=== PATIENT | female | born 1965 | race African-American/Black ===

== ENCOUNTER 2016-10-02 14:04 | Inpatient (IN) | payer MEDICAID ==
[~2016-10-02] VITALS: Ht 165.1 cm; Wt 88.9 kg
[~2016-10-02 14:04] MED LIST: ASPI81CH43 PO; Atorvastatin Calcium PO; Gabapentin PO; KEP500T PO; LEVO25TA6 PO; [UNRECOGNIZED DRUG - OTHER] PO
[2016-10-02 15:34] LABS: Basophils # (auto) 0 uL; Basophils % (auto) 0.4 % (0.0-2.0); Eosinophils # (auto) 0.1 uL; Eosinophils % (auto) 0.9 % (0.0-7.0); Hematocrit 35.7 % (36.0-46.0); Hemoglobin 11.6 g/dL (12.2-16.2); Lymphocytes % (auto) 30.6 % (10.0-50.0); Mean Corpuscular Hemoglobin 29.6 pg (28.0-32.0); Mean Corpuscular Hgb Conc. 32.4 g/dL (32.0-36.0); Mean Corpuscular Volume 91.3 fL (80.0-100.0); Mean Platelet Volume 7.8 fL (7.4-10.4); Monocytes # (auto) 0.4 uL; Monocytes % (auto) 5.6 % (0.0-12.0); Neutrophils # (auto) 4.1 uL; Neutrophils % (auto) 62.5 % (37.0-80.0); Platelet Count (auto) 290 10^3/uL (140-450); Red Cell Distribution Width 14.4 % (11.6-16.0); White Blood Cell 6.6 10^3/uL (4.4-10.8)
[2016-10-02 16:05] LABS: Albumin 3.9 g/dL (3.4-5.0); BUN/Creatinine Ratio 32.8; Bilirubin, Total 0.1 mg/dL (0.2-1.0); Potassium 3.6 mmol/L (3.5-5.1); Total Protein 7.1 g/dL (6.4-8.2)
[2016-10-02] MEDS ORDERED: LEVETIRACETAM INJ 1,000 MG in SODIUM CHL 0.9% 100 ML IV ONE (20:45)
[2016-10-02] MEDS ORDERED: ASPirin 81 mg TAB PO ONE (22:00)
[2016-10-02] MEDS: ATORVASTATIN 20 MG TAB PO SCH (22:00)
[2016-10-02] MEDS: GABAPENTIN 300 MG CAP PO SCH (22:00)
[2016-10-02] MEDS: SODIUM CHLORIDE 0.9% 1,000 ML IV SCH (22:08)
[2016-10-02] MEDS: LEVETIRACETAM 500 MG TAB PO SCH (22:10)
[2016-10-02] MEDS ORDERED: ENOXAPARIN SOD 30 MG/0.3 ML SYRINGE SC SCH (22:13)
[2016-10-02] MEDS ORDERED: LACTULOSE 20Gm/30ML SOLN PO PRN (22:15)
[2016-10-02] MEDS ORDERED: NITROGLYCERIN 0.4 MG SL TAB SL PRN (22:15)
[2016-10-02] MEDS ORDERED: LORazepam 2MG/ML-1ML VIAL IV PRN (22:15)
[2016-10-02] MEDS ORDERED: HYDROcodone-ACET 5/325MG TAB PO PRN (22:15)
[2016-10-02] MEDS ORDERED: IBUPROFEN 800 MG TAB PO PRN ×2 (22:15)
[2016-10-02] MEDS ORDERED: MORPHINE SULF INJ 2 MG/ML SYRINGE 1ML IV PRN (22:15)
[2016-10-02] MEDS ORDERED: LORazepam 0.5 MG TAB PO PRN (22:15)
[2016-10-03] VITALS (7 sets, daily range): BP systolic 91–113; BP diastolic 56–74
[2016-10-03] MEDS: LORazepam 2MG/ML-1ML VIAL IV PRN ×4 (01:56→14:27)
[2016-10-03] MEDS ORDERED: MORPHINE SULF INJ 2 MG/ML SYRINGE 1ML IV PRN (02:00)
[2016-10-03] MEDS ORDERED: LORazepam 2MG/ML-1ML VIAL IM ONE (02:30)
[2016-10-03] MEDS: GABAPENTIN 300 MG CAP PO SCH ×3 (06:54→21:38)
[2016-10-03] MEDS: LEVOTHYROXINE SODIUM 25 MCG TAB PO SCH (06:54)
[2016-10-03] MEDS: HYDROcodone-ACET 5/325MG TAB PO PRN ×2 (06:59→15:08)
[2016-10-03 07:27] LABS: Albumin 3.8 g/dL (3.4-5.0); BUN/Creatinine Ratio 21.3; Bilirubin, Total 0.3 mg/dL (0.2-1.0); Calcium 8.8 mg/dL (8.5-10.1); Potassium 3.6 mmol/L (3.5-5.1); Total Protein 7.1 g/dL (6.4-8.2)
[2016-10-03 07:34] LABS: Basophils # (auto) 0 uL; Basophils % (auto) 0.4 % (0.0-2.0); Eosinophils # (auto) 0.1 uL; Eosinophils % (auto) 1.1 % (0.0-7.0); Hematocrit 37.9 % (36.0-46.0); Hemoglobin 11.8 g/dL (12.2-16.2); Lymphocytes % (auto) 19.9 % (10.0-50.0); Mean Corpuscular Hemoglobin 28.7 pg (28.0-32.0); Mean Corpuscular Hgb Conc. 31.2 g/dL (32.0-36.0); Mean Corpuscular Volume 92.2 fL (80.0-100.0); Mean Platelet Volume 7.9 fL (7.4-10.4); Monocytes # (auto) 0.3 uL; Monocytes % (auto) 5.6 % (0.0-12.0); Neutrophils # (auto) 3.8 uL; Platelet Count (auto) 239 10^3/uL (140-450); Red Cell Distribution Width 14.4 % (11.6-16.0); White Blood Cell 5.2 10^3/uL (4.4-10.8)
[2016-10-03] MEDS: LEVETIRACETAM 500 MG TAB PO SCH ×2 (09:58→21:38)
[2016-10-03] MEDS: ENOXAPARIN SOD 40 MG/0.4 ML SYRINGE SC SCH (09:58)
[2016-10-03] MEDS: ASPirin 81 mg TAB PO SCH (09:58)
[2016-10-03] MEDS: SODIUM CHLORIDE 0.9% 1,000 ML IV SCH (10:06)
[2016-10-03] MEDS: LORazepam 0.5 MG TAB PO PRN (14:17)
[2016-10-03] MEDS ORDERED: HYDROcodone-ACET 5/325MG TAB PO PRN (15:30)
[2016-10-03] MEDS: MORPHINE SULF INJ 2 MG/ML SYRINGE 1ML IV PRN ×2 (16:11→20:10)
[2016-10-03] MEDS: ATORVASTATIN 20 MG TAB PO SCH (21:37)
[2016-10-04] MEDS: LORazepam 0.5 MG TAB PO PRN ×2 (01:31→23:02)
[2016-10-04] MEDS: LORazepam 2MG/ML-1ML VIAL IV PRN ×2 (02:12→07:05)
[2016-10-04 05:05] VITALS: BP 102/65
[2016-10-04] MEDS: GABAPENTIN 300 MG CAP PO SCH ×3 (05:26→22:07)
[2016-10-04] MEDS: MORPHINE SULF INJ 2 MG/ML SYRINGE 1ML IV PRN ×4 (05:27→22:05)
[2016-10-04] MEDS: LEVOTHYROXINE SODIUM 25 MCG TAB PO SCH (06:29)
[2016-10-04 07:21] VITALS: BP 102/69
[2016-10-04] MEDS: ASPirin 81 mg TAB PO SCH (10:11)
[2016-10-04] MEDS: LEVETIRACETAM 500 MG TAB PO SCH ×2 (10:12→22:07)
[2016-10-04] MEDS: ENOXAPARIN SOD 40 MG/0.4 ML SYRINGE SC SCH (10:12)
[2016-10-04 11:22] LABS: Urine Bilirubin Negative (Negative); Urine Blood Negative /uL (Negative); Urine Color Yellow (Yellow); Urine Glucose Normal (Normal); Urine Ketone Negative (Negative); Urine Mucus FEW (None Seen); Urine Nitrite Negative (Negative); Urine RBC <1 /hpf (0 - 4); Urine Squamous Epithelial Cell FEW /hpf (<5); Urine Urobilinogen Normal (Negative)
[2016-10-04] MEDS: BOOST 8 ounces PO SCH ×2 (12:09→18:28)
[2016-10-04 13:00] VITALS: BP 94/61
[2016-10-04 17:17] VITALS: BP 93/59
[2016-10-04 20:00] VITALS: BP 96/62
[2016-10-04 21:47] VITALS: BP 96/62
[2016-10-04] MEDS: ATORVASTATIN 20 MG TAB PO SCH (22:07)
[2016-10-05] MEDS: MORPHINE SULF INJ 2 MG/ML SYRINGE 1ML IV PRN (04:32)
[2016-10-05 04:41] VITALS: BP 98/66
[2016-10-05] MEDS: GABAPENTIN 300 MG CAP PO SCH (05:33)
[2016-10-05 06:25] VITALS: BP 98/66
[2016-10-05] MEDS: LEVOTHYROXINE SODIUM 25 MCG TAB PO SCH (06:39)
[2016-10-05 08:06] VITALS: BP 90/64
[2016-10-05 08:41] VITALS: BP 90/64
== END 2016-10-05 11:05 | disposition home or self-care (01) | DRG 53 ==
LOC: EDBD 14:04 → ER 14:11 → TELE 14:12 → TELE-EAST 14:13 → ER 17:14 → TELE-EAST 10-03 00:04 → EAST 10-04 14:10
PROVIDERS: ADMIT Family Medicine; ATTEND Hospitalist
DX: G40.909 Epilepsy, unspecified, not intractable, without status epilepticus (principal); I69.351 Hemiplegia and hemiparesis following cerebral infarction affecting right dominant side; I10 Essential (primary) hypertension; E78.5 Hyperlipidemia, unspecified; E03.9 Hypothyroidism, unspecified; F41.9 Anxiety disorder, unspecified; E78.00 Pure hypercholesterolemia, unspecified; G89.29 Other chronic pain; Z90.710 Acquired absence of both cervix and uterus; R07.89 Other chest pain; M54.9 Dorsalgia, unspecified
CPT/HCPCS: 36415; 70450; 80053; 80061; 81001; 82542; 85025; 87086; 87493; 96365; G0434

== ENCOUNTER 2017-01-15 11:32 | Emergency (ER) | payer MEDICAID ==
[~2017-01-15] VITALS: Ht 170.2 cm; Wt 75.7 kg
[2017-01-15 12:14] LABS: Basophils # (auto) 0 uL; Basophils % (auto) 0.1 % (0.0-2.0); Eosinophils # (auto) 0 uL; Eosinophils % (auto) 0.4 % (0.0-7.0); Hemoglobin 12.9 g/dL (12.2-16.2); Lymphocytes # (auto) 1.7 uL; Lymphocytes % (auto) 21.5 % (10.0-50.0); Mean Corpuscular Volume 87.8 fL (80.0-100.0); Mean Platelet Volume 8.4 fL (7.4-10.4); Monocytes # (auto) 0.2 uL; Monocytes % (auto) 2.4 % (0.0-12.0); Neutrophils # (auto) 5.9 uL; Neutrophils % (auto) 75.6 % (37.0-80.0); Platelet Count (auto) 296 10^3/uL (140-450); Red Cell Distribution Width 15.1 % (11.6-16.0); White Blood Cell 7.7 10^3/uL (4.4-10.8)
[2017-01-15 12:33] LABS: Albumin 4.3 g/dL (3.4-5.0); BUN/Creatinine Ratio 14.3; Bilirubin, Total 0.4 mg/dL (0.2-1.0); Calcium 9.3 mg/dL (8.5-10.1); Potassium 3.7 mmol/L (3.5-5.1); Total Protein 7.8 g/dL (6.4-8.2)
[2017-01-15] MEDS ORDERED: LORazepam 0.5 MG TAB PO ONE (13:45)
[2017-01-15 13:51] VITALS: BP 105/82
== END 2017-01-15 14:32 | disposition home or self-care (01) ==
LOC: ER 11:36
DX: G40.909 Epilepsy, unspecified, not intractable, without status epilepticus (principal); N39.0 Urinary tract infection, site not specified; E78.5 Hyperlipidemia, unspecified; E07.89 Other specified disorders of thyroid; Z86.73 Personal history of transient ischemic attack (TIA), and cerebral infarction without residual deficits; Z90.710 Acquired absence of both cervix and uterus
CPT/HCPCS: 36415; 80053; 85025; 93005

== ENCOUNTER 2018-04-23 14:19 | Inpatient (IN) | payer MEDICAID ==
[~2018-04-23] VITALS: Ht 182.9 cm; Wt 101.5 kg
[2018-04-23] MEDS ORDERED: SODIUM CHLORIDE 0.9% 1,000 ML IV ONE (14:44)
[2018-04-23] MEDS ORDERED: LORazepam 2MG/ML-1ML VIAL IV ONE (15:01)
[2018-04-23] MEDS ORDERED: LORazepam 2MG/ML-1ML VIAL ONE (15:02)
[2018-04-23 19:31] LABS: Eosinophils # (auto) 0.1 uL; Eosinophils % (auto) 2.6 % (0.0-7.0); Hemoglobin 11.2 g/dL (12.2-16.2); Mean Corpuscular Volume 79.3 fL (80.0-100.0); Monocytes # (auto) 0.4 uL; White Blood Cell 5.4 10^3/uL (4.4-10.8)
[2018-04-23 19:33] LABS: Basophils # (auto) 0.1 uL; Lymphocytes # (auto) 1.9 uL; Lymphocytes % (auto) 35.1 % (10.0-50.0); Mean Corpuscular Hemoglobin 25.4 pg (28.0-32.0); Mean Corpuscular Hgb Conc. 32.1 g/dL (32.0-36.0); Monocytes % (auto) 7.3 % (0.0-12.0); Neutrophils # (auto) 2.9 uL; Nucleated Red Blood Cells % 0.2 %; Platelet Count (auto) 226 10^3/uL (140-450); Red Blood Cells 4.41 10^6/uL (4.0-5.20); Red Cell Distribution Width 19.2 % (11.8-14.3)
[2018-04-23 19:58] LABS: Alanine Aminotransferase 22 U/L (13-56); Albumin 3.5 g/dL (3.4-5.0); Alkaline Phosphatase 130 U/L (45-117); Anion Gap 10 (5-15); Aspartate Aminotransferase 21 U/L (15-37); BUN/Creatinine Ratio 11.8; Bilirubin, Total 0.2 mg/dL (0.2-1.0); Blood Urea Nitrogen 10 mg/dL (7-18); Calcium 8.2 mg/dL (8.5-10.1); Carbon Dioxide 23 mmol/L (21-32); Chloride 103 mmol/L (98-107); GFR African American 90 mL/min; GFR Non-African American 74 mL/min; Glucose 119 mg/dL (74-106); Potassium 3.9 mmol/L (3.5-5.1); Sodium 136 mmol/L (136-145); Total Protein 7.2 g/dL (6.4-8.2)
[2018-04-23 20:00] LABS: Urine Bacteria NONE SEEN /hpf (None Seen); Urine Blood Negative /uL (Negative); Urine Mucus FEW (None Seen); Urine Specific Gravity 1.017 (1.001-1.035); Urine WBC 2 /hpf (0 - 5)
[2018-04-23] MEDS ORDERED: ONDANSETRON HCL 4 MG/2 ML VIAL IV PRN (21:45)
[2018-04-23] MEDS ORDERED: ACETAMINOPHEN 500 MG TAB PO PRN (21:45)
[2018-04-23] MEDS ORDERED: ATORVASTATIN 20 MG TAB PO SCH (22:00)
[2018-04-23] MEDS ORDERED: LEVETIRACETAM 500 MG TAB PO SCH (22:00)
[2018-04-23] MEDS: GABAPENTIN 300 MG CAP PO SCH (23:31)
[2018-04-23] MEDS: HYDROcodone-ACET 5/325MG TAB PO PRN (23:32)
[2018-04-23 23:45] VITALS: BP 109/57
[2018-04-24] MEDS ORDERED: TEMAZEPAM 15 MG CAP PO PRN (01:00)
[2018-04-24] MEDS: LORazepam 2MG/ML-1ML VIAL IV PRN ×2 (03:58→04:05)
[2018-04-24 05:00] VITALS: BP 102/64
[2018-04-24] MEDS ORDERED: LEVOTHYROXINE SODIUM 75 MCG TAB PO SCH (07:00)
[2018-04-24 07:41] LABS: Basophils # (auto) 0 uL; Eosinophils # (auto) 0.1 uL; Lymphocytes # (auto) 1.4 uL; Neutrophils # (auto) 2.6 uL; Red Blood Cells 4.23 10^6/uL (4.0-5.20); White Blood Cell 4.6 10^3/uL (4.4-10.8)
[2018-04-24 07:44] LABS: Eosinophils % (auto) 2.9 % (0.0-7.0); Hematocrit 32.8 % (36.0-46.0); Hemoglobin 10.7 g/dL (12.2-16.2); Lymphocytes % (auto) 30.3 % (10.0-50.0); Mean Corpuscular Hemoglobin 25.2 pg (28.0-32.0); Mean Corpuscular Hgb Conc. 32.5 g/dL (32.0-36.0); Mean Corpuscular Volume 77.6 fL (80.0-100.0); Monocytes # (auto) 0.4 uL; Neutrophils % (auto) 56.8 % (37.0-80.0); Nucleated Red Blood Cells % 0.1 %; Platelet Count (auto) 298 10^3/uL (140-450); Red Cell Distribution Width 19.3 % (11.8-14.3)
[2018-04-24 07:54] LABS: BUN/Creatinine Ratio 11.4; Calcium 8.5 mg/dL (8.5-10.1); Potassium 3.8 mmol/L (3.5-5.1)
[2018-04-24] MEDS ORDERED: cefTRIAXone 1GM/10ml IVPUSH 10 ML IV ONE (09:00)
[2018-04-24 09:01] VITALS: BP 113/69
[2018-04-24] MEDS: ASPirin-EC 81 mg tab PO SCH (09:47)
[2018-04-24] MEDS: LEVOTHYROXINE SODIUM 25 MCG TAB PO SCH (09:47)
[2018-04-24] MEDS: GABAPENTIN 300 MG CAP PO SCH (09:48)
[2018-04-24] MEDS: HYDROcodone-ACET 5/325MG TAB PO PRN ×3 (10:15→22:51)
[2018-04-24 12:16] VITALS: BP 106/70
[2018-04-24 17:29] VITALS: BP 107/65
[2018-04-24 21:30] VITALS: BP 106/68
[2018-04-24] MEDS ORDERED: GABAPENTIN 300 MG CAP PO SCH (22:00)
[2018-04-24] MEDS ORDERED: GABAPENTIN 400 MG CAP PO SCH (22:00)
[2018-04-24] MEDS: ATORVASTATIN 20 MG TAB PO SCH (22:52)
[2018-04-24] MEDS: GABAPENTIN 400 MG CAP PO SCH (22:52)
[2018-04-25] VITALS (7 sets, daily range): BP systolic 94–123; BP diastolic 63–72
[2018-04-25] MEDS: GABAPENTIN 400 MG CAP PO SCH ×3 (06:02→21:24)
[2018-04-25 07:39] LABS: Anion Gap 11 (5-15); BUN/Creatinine Ratio 12.8; Blood Urea Nitrogen 10 mg/dL (7-18); Calcium 8.9 mg/dL (8.5-10.1); Carbon Dioxide 24 mmol/L (21-32); Chloride 107 mmol/L (98-107); GFR African American 99 mL/min; GFR Non-African American 82 mL/min; Glucose 95 mg/dL (74-106); Sodium 142 mmol/L (136-145)
[2018-04-25 07:47] LABS: Mean Corpuscular Hgb Conc. 32.1 g/dL (32.0-36.0)
[2018-04-25 07:50] LABS: Hematocrit 39.1 % (36.0-46.0); Hemoglobin 12.5 g/dL (12.2-16.2); Platelet Count (auto) 329 10^3/uL (140-450); Red Blood Cells 5.01 10^6/uL (4.0-5.20); Red Cell Distribution Width 19.2 % (11.8-14.3); White Blood Cell 5.9 10^3/uL (4.4-10.8)
[2018-04-25 08:00] LABS: Band Neutrophils % (manual) 0; Basophils % (manual) 0 (0.0-2.0); Blast Cells 0; Metamyelocytes % 0; Myelocytes % 0; Promyelocytes % 0; Reactive Lymphocytes 0
[2018-04-25 08:55] LABS: Eosinophils % (manual) 2 (0-7); Lymphocytes % (manual) 32 (10.0-50.0); Monocytes % (manual) 7 (0-12)
[2018-04-25] MEDS: HYDROcodone-ACET 5/325MG TAB PO PRN ×3 (09:21→21:26)
[2018-04-25] MEDS: ASPirin-EC 81 mg tab PO SCH (09:22)
[2018-04-25] MEDS: APTIOM 800MG TAB PO SCH (09:42)
[2018-04-25] MEDS: LEVOTHYROXINE SODIUM 25 MCG TAB PO SCH (10:57)
[2018-04-25] MEDS: LORazepam 2MG/ML-1ML VIAL IV PRN (11:12)
[2018-04-25] MEDS ORDERED: GABA800T97 PO (13:52)
[2018-04-25] MEDS ORDERED: MIRT15TA3 PO (13:52)
[2018-04-25] MEDS ORDERED: ESLI1TAB4 PO (13:52)
[2018-04-25] MEDS ORDERED: ASPI325T4 PO (13:52)
[2018-04-25] MEDS ORDERED: ATOR40TA52 PO (13:52)
[2018-04-25] MEDS: ATORVASTATIN 20 MG TAB PO SCH (21:24)
[2018-04-26 05:00] VITALS: BP 98/58
[2018-04-26] MEDS: GABAPENTIN 400 MG CAP PO SCH (05:27)
[2018-04-26] MEDS: HYDROcodone-ACET 5/325MG TAB PO PRN ×2 (05:28→09:24)
[2018-04-26 07:31] LABS: Monocytes # (auto) 0.5 uL; Platelet Count (auto) 336 10^3/uL (140-450)
[2018-04-26 07:40] LABS: Basophils # (auto) 0 uL; Basophils % (auto) 0.9 % (0.0-2.0); Eosinophils # (auto) 0.1 uL; Eosinophils % (auto) 2.1 % (0.0-7.0); Hematocrit 38.2 % (36.0-46.0); Hemoglobin 12.3 g/dL (12.2-16.2); Lymphocytes # (auto) 1.4 uL; Lymphocytes % (auto) 27.2 % (10.0-50.0); Mean Corpuscular Hemoglobin 25.2 pg (28.0-32.0); Mean Corpuscular Hgb Conc. 32.2 g/dL (32.0-36.0); Mean Corpuscular Volume 78.4 fL (80.0-100.0); Monocytes % (auto) 10.3 % (0.0-12.0); Neutrophils % (auto) 59.5 % (37.0-80.0); Nucleated Red Blood Cells % 0.2 %; Red Blood Cells 4.88 10^6/uL (4.0-5.20); Red Cell Distribution Width 19.2 % (11.8-14.3); White Blood Cell 5.1 10^3/uL (4.4-10.8)
[2018-04-26 07:59] LABS: Potassium 3.9 mmol/L (3.5-5.1)
[2018-04-26 08:00] VITALS: BP 107/64
[2018-04-26] MEDS: LEVOTHYROXINE SODIUM 25 MCG TAB PO SCH (09:23)
[2018-04-26] MEDS: APTIOM 800MG TAB PO SCH (09:25)
[2018-04-26] MEDS: ASPirin-EC 81 mg tab PO SCH (09:25)
[2018-04-26 11:15] VITALS: BP 107/64
== END 2018-04-26 12:50 | disposition home or self-care (01) | DRG 53 ==
LOC: EDBD 14:19 → ER 14:19 → OVERFLOW 14:20 → CENTRAL 22:14
PROVIDERS: ADMIT Nurse Practitioner Family; ATTEND Internal Medicine
DX: G40.401 Other generalized epilepsy and epileptic syndromes, not intractable, with status epilepticus (principal); F06.8 Other specified mental disorders due to known physiological condition; I10 Essential (primary) hypertension; E03.9 Hypothyroidism, unspecified; F41.9 Anxiety disorder, unspecified; F17.200 Nicotine dependence, unspecified, uncomplicated; Z79.82 Long term (current) use of aspirin; Z79.899 Other long term (current) drug therapy; Z82.49 Family history of ischemic heart disease and other diseases of the circulatory system; Z83.3 Family history of diabetes mellitus; Z86.73 Personal history of transient ischemic attack (TIA), and cerebral infarction without residual deficits; Z90.710 Acquired absence of both cervix and uterus; Z88.0 Allergy status to penicillin; Z88.8 Allergy status to other drugs, medicaments and biological substances
CPT/HCPCS: 36415; 70450; 80048; 80053; 81001; 84443; 84484; 85007; 85025; 85027; 95819; 96374; J0696

== ENCOUNTER 2018-06-24 07:23 | Emergency (ER) | payer MEDICAID ==
[~2018-06-24] VITALS: Ht 162.6 cm; Wt 72.6 kg
[~2018-06-24 07:23] MED LIST changes: +ASPI325T4 PO; -ASPI81CH43 PO; +ATOR40TA52 PO; -Atorvastatin Calcium PO; +ESLI1TAB4 PO; +GABA800T97 PO; -Gabapentin PO; -KEP500T PO; +MIRT15TA3 PO; -[UNRECOGNIZED DRUG - OTHER] PO
[2018-06-24 08:28] LABS: White Blood Cell 7.6 10^3/uL (4.4-10.8)
[2018-06-24 08:30] LABS: Hematocrit 35.4 % (36.0-46.0); Hemoglobin 11.4 g/dL (12.2-16.2); Mean Corpuscular Hemoglobin 26.1 pg (28.0-32.0); Mean Corpuscular Hgb Conc. 32.2 g/dL (32.0-36.0); Mean Corpuscular Volume 81.2 fL (80.0-100.0); Platelet Count (auto) 252 10^3/uL (140-450); Red Blood Cells 4.35 10^6/uL (4.0-5.20); Red Cell Distribution Width 19.9 % (11.8-14.3)
[2018-06-24 08:41] LABS: Band Neutrophils % (manual) 0; Basophils % (manual) 0 (0.0-2.0); Blast Cells 0; Metamyelocytes % 0; Myelocytes % 0; Promyelocytes % 0; Reactive Lymphocytes 0
[2018-06-24 08:49] LABS: Albumin 3.6 g/dL (3.4-5.0); Calcium 8.7 mg/dL (8.5-10.1)
[2018-06-24 08:53] LABS: BUN/Creatinine Ratio 14.3; Bilirubin, Total 0.2 mg/dL (0.2-1.0); Total Protein 7.5 g/dL (6.4-8.2)
[2018-06-24 09:09] LABS: Urine Bacteria NONE SEEN /hpf (None Seen); Urine Blood Negative /uL (Negative); Urine Specific Gravity 1.008 (1.001-1.035); Urine WBC 7 /hpf (0 - 5)
[2018-06-24 09:12] LABS: Alcohol, Urine < 3.0 mg/dL (0-5); Amphetamine Screen, Urine NEGATIVE (NEGATIVE); Barbiturate Scree,Urine NEGATIVE (NEGATIVE); Benzodiazephine Screen, Urine NEGATIVE (NEGATIVE); Cannabinoid Screen, Urine NEGATIVE (NEGATIVE); Cocaine Screen, Urine NEGATIVE (NEGATIVE); Opiate Scree,Urine NEGATIVE (NEGATIVE); Phencyclidine Screen, Urine NEGATIVE (NEGATIVE)
[2018-06-24 09:29] LABS: Eosinophils % (manual) 2 (0-7); Lymphocytes % (manual) 25 (10.0-50.0); Monocytes % (manual) 6 (0-12)
[2018-06-24] MEDS ORDERED: LORazepam 2MG/ML-1ML VIAL ONE (09:43)
[2018-06-24] MEDS ORDERED: LORazepam 2MG/ML-1ML VIAL IV ONE (09:45)
[2018-06-24 12:01] VITALS: BP 118/73
== END 2018-06-24 12:13 | disposition home or self-care (01) ==
LOC: EDBD 07:23 → ER 07:23
DX: G40.909 Epilepsy, unspecified, not intractable, without status epilepticus (principal); F41.9 Anxiety disorder, unspecified; E78.5 Hyperlipidemia, unspecified; Z86.73 Personal history of transient ischemic attack (TIA), and cerebral infarction without residual deficits; Z90.710 Acquired absence of both cervix and uterus
CPT/HCPCS: 36415; 70450; 72125; 80053; 80307; 81001; 81025; 82962; 85007; 85027; 93005; 94761; 96374; 99285; J2060; J7030

== ENCOUNTER 2018-07-23 13:10 | Emergency (ER) | payer MEDICAID ==
[~2018-07-23] VITALS: Ht 170.2 cm; Wt 62.6 kg
[2018-07-23] MEDS ORDERED: SODIUM CHLORIDE 0.9% 1,000 ML IV ONE (13:46)
[2018-07-23] MEDS ORDERED: ONDANSETRON HCL 4 MG/2 ML VIAL IV ONE (14:00)
[2018-07-23 14:09] LABS: Eosinophils # (auto) 0.1 uL; Lymphocytes # (auto) 1.7 uL; Mean Corpuscular Hemoglobin 25.9 pg (28.0-32.0); Monocytes # (auto) 0.6 uL; Nucleated Red Blood Cells % 0.1 %
[2018-07-23 14:11] LABS: Basophils # (auto) 0 uL; Basophils % (auto) 0.5 % (0.0-2.0); Eosinophils % (auto) 0.8 % (0.0-7.0); Hematocrit 36.7 % (36.0-46.0); Hemoglobin 11.7 g/dL (12.2-16.2); Lymphocytes % (auto) 19.4 % (10.0-50.0); Mean Corpuscular Volume 80.8 fL (80.0-100.0); Monocytes % (auto) 6.3 % (0.0-12.0); Neutrophils # (auto) 6.5 uL; Platelet Count (auto) 362 10^3/uL (140-450); Red Blood Cells 4.54 10^6/uL (4.0-5.20); Red Cell Distribution Width 18.1 % (11.8-14.3); White Blood Cell 8.9 10^3/uL (4.4-10.8)
[2018-07-23 14:28] LABS: Urine Bacteria FEW /hpf (None Seen); Urine Blood Negative /uL (Negative); Urine Mucus FEW (None Seen); Urine Specific Gravity 1.026 (1.001-1.035); Urine WBC 9 /hpf (0 - 5)
[2018-07-23 14:31] LABS: Alanine Aminotransferase 39 U/L (13-56); Albumin 3.8 g/dL (3.4-5.0); Anion Gap 8 (5-15); Aspartate Aminotransferase 15 U/L (15-37); BUN/Creatinine Ratio 14.6; Blood Urea Nitrogen 14 mg/dL (7-18); Calcium 8.4 mg/dL (8.5-10.1); Carbon Dioxide 24 mmol/L (21-32); Chloride 107 mmol/L (98-107); GFR African American 78 mL/min; GFR Non-African American 65 mL/min; Glucose 118 mg/dL (74-106); Sodium 139 mmol/L (136-145)
[2018-07-23 14:35] LABS: Alkaline Phosphatase 177 U/L (45-117); Bilirubin, Total 0.1 mg/dL (0.2-1.0); Total Protein 7.9 g/dL (6.4-8.2)
[2018-07-23 15:25] VITALS: BP 117/76
== END 2018-07-23 15:44 | disposition home or self-care (01) ==
LOC: ER 13:10
DX: N39.0 Urinary tract infection, site not specified (principal); E07.89 Other specified disorders of thyroid; E78.5 Hyperlipidemia, unspecified; Z86.73 Personal history of transient ischemic attack (TIA), and cerebral infarction without residual deficits; Z88.0 Allergy status to penicillin; Z88.8 Allergy status to other drugs, medicaments and biological substances; Z90.710 Acquired absence of both cervix and uterus
CPT/HCPCS: 36415; 71045; 80053; 81001; 84484; 85025; 94761; 96361; 96374; 99285; J2405; J7030

== ENCOUNTER 2018-08-18 09:47 | Emergency (ER) | payer MEDICAID ==
[~2018-08-18] VITALS: Ht 170.2 cm; Wt 96.6 kg
[2018-08-18 10:09] VITALS: BP 134/88
[2018-08-18] MEDS: SILVER SULFADIAZINE 1 % TOPICAL CREAM 50GM TOP ONE (10:32)
[2018-08-18] MEDS: ACETAMINOPHEN 325 MG TAB PO ONE (10:37)
== END 2018-08-18 10:48 | disposition home or self-care (01) ==
LOC: ER 09:47
DX: T23.202A Burn of second degree of left hand, unspecified site, initial encounter (principal); T31.0 Burns involving less than 10% of body surface; E78.5 Hyperlipidemia, unspecified; E07.9 Disorder of thyroid, unspecified; Z90.710 Acquired absence of both cervix and uterus; Z88.0 Allergy status to penicillin; Z88.8 Allergy status to other drugs, medicaments and biological substances; Z79.82 Long term (current) use of aspirin; Z79.899 Other long term (current) drug therapy; Z86.73 Personal history of transient ischemic attack (TIA), and cerebral infarction without residual deficits; X08.8XXA Exposure to other specified smoke, fire and flames, initial encounter; Y93.89 Activity, other specified; Y99.8 Other external cause status; Y92.89 Other specified places as the place of occurrence of the external cause
CPT/HCPCS: 16020

== ENCOUNTER 2018-08-20 14:28 | Emergency (ER) | payer MEDICAID ==
[~2018-08-20] VITALS: Ht 170.2 cm; Wt 96.6 kg
[2018-08-20 14:52] VITALS: BP 115/69
== END 2018-08-20 15:39 | disposition home or self-care (01) ==
LOC: ER 14:33
DX: T23.202D Burn of second degree of left hand, unspecified site, subsequent encounter (principal); T31.0 Burns involving less than 10% of body surface; E78.5 Hyperlipidemia, unspecified; E07.9 Disorder of thyroid, unspecified; Z90.710 Acquired absence of both cervix and uterus; Z86.73 Personal history of transient ischemic attack (TIA), and cerebral infarction without residual deficits; Z88.0 Allergy status to penicillin; Z88.8 Allergy status to other drugs, medicaments and biological substances; X08.8XXD Exposure to other specified smoke, fire and flames, subsequent encounter

== ENCOUNTER 2018-09-11 12:24 | Inpatient (IN) | payer MEDICAID ==
[~2018-09-11] VITALS: Ht 170.2 cm; Wt 107.1 kg
[2018-09-11] MEDS ORDERED: methylPREDNISolone SOD SUCC 125 MG/2 ML VL IV ONE ×2 (14:00→18:00)
[2018-09-11] MEDS ORDERED: IPRATROPIUM BROM 0.5 MG/2.5ML INH SOL NEB ONE (14:00)
[2018-09-11] MEDS ORDERED: ALBUTEROL SULF 2.5 MG/0.5ML(0.5%) NEB SOLN NEB ONE (14:00)
[2018-09-11] MEDS ORDERED: LEVOFLOXACIN 500MG 100 ML IV ONE (14:30)
[2018-09-11 15:12] LABS: Alanine Aminotransferase 47 U/L (13-56); Albumin 3.6 g/dL (3.4-5.0); Anion Gap 5 (5-15); Aspartate Aminotransferase 27 U/L (15-37); BUN/Creatinine Ratio 13.3; Blood Urea Nitrogen 13 mg/dL (7-18); Calcium 8.1 mg/dL (8.5-10.1); Carbon Dioxide 26 mmol/L (21-32); Chloride 108 mmol/L (98-107); GFR African American 76 mL/min; GFR Non-African American 63 mL/min; Glucose 111 mg/dL (74-106); Potassium 4.6 mmol/L (3.5-5.1); Sodium 139 mmol/L (136-145)
[2018-09-11 15:17] LABS: Alkaline Phosphatase 185 U/L (45-117); Bilirubin, Total 0.1 mg/dL (0.2-1.0); Total Protein 7.2 g/dL (6.4-8.2)
[2018-09-11 16:27] LABS: Eosinophils # (auto) 0.1 uL; Eosinophils % (auto) 0.9 % (0.0-7.0); Mean Corpuscular Hgb Conc. 31.7 g/dL (32.0-36.0); Nucleated Red Blood Cells % 0.1 %
[2018-09-11 16:28] LABS: Basophils # (auto) 0 uL; Basophils % (auto) 0.6 % (0.0-2.0); Hemoglobin 10.8 g/dL (12.2-16.2); Lymphocytes # (auto) 1.7 uL; Lymphocytes % (auto) 22.2 % (10.0-50.0); Mean Corpuscular Hemoglobin 25.9 pg (28.0-32.0); Mean Corpuscular Volume 81.8 fL (80.0-100.0); Monocytes % (auto) 12.7 % (0.0-12.0); Neutrophils % (auto) 63.6 % (37.0-80.0); Platelet Count (auto) 307 10^3/uL (140-450); Red Blood Cells 4.16 10^6/uL (4.0-5.20); Red Cell Distribution Width 17.3 % (11.8-14.3); White Blood Cell 7.9 10^3/uL (4.4-10.8)
[2018-09-11 16:40] LABS: Partial Thromboplastin Time 25.4 sec (23.78-33.04); Prothrombin Time 10.7 sec (9.27-12.13)
[2018-09-11] MEDS ORDERED: IOHEXOL 350 MG/ML 100ML IJ ONE (18:08)
[2018-09-11] MEDS ORDERED: ONDANSETRON HCL 4 MG/2 ML VIAL IV PRN (19:00)
[2018-09-11] MEDS ORDERED: MORPHINE SULFATE 10 MG/ML INJ 1ML SDV IV PRN (19:00)
[2018-09-11] MEDS ORDERED: HYDROcodone-ACET 5/325MG TAB PO PRN (19:00)
[2018-09-11] MEDS ORDERED: NITROGLYCERIN 0.4 MG SL TAB SL PRN (19:00)
[2018-09-11] MEDS: AZITHROMYCIN 500MG/ 250ML 250 ML IV SCH (19:31)
[2018-09-11 20:32] VITALS: BP 116/71
[2018-09-11] MEDS ORDERED: ATORVASTATIN 20 MG TAB PO SCH (22:00)
[2018-09-11] MEDS: GABAPENTIN 300 MG CAP PO SCH (22:38)
[2018-09-12] MEDS: ALBUTEROL SULF 2.5 MG/0.5ML(0.5%) NEB SOLN NEB SCH ×4 (00:32→19:00)
[2018-09-12] MEDS: IPRATROPIUM BROM 0.5 MG/2.5ML INH SOL NEB SCH ×4 (00:32→19:00)
[2018-09-12 06:25] LABS: Basophils # (auto) 0 uL; Eosinophils # (auto) 0 uL; Monocytes # (auto) 0.7 uL; Neutrophils # (auto) 7.3 uL
[2018-09-12 06:27] LABS: Basophils % (auto) 0.4 % (0.0-2.0); Hematocrit 34.2 % (36.0-46.0); Hemoglobin 10.9 g/dL (12.2-16.2); Lymphocytes % (auto) 11.6 % (10.0-50.0); Mean Corpuscular Hemoglobin 26.2 pg (28.0-32.0); Mean Corpuscular Hgb Conc. 31.9 g/dL (32.0-36.0); Mean Corpuscular Volume 82.1 fL (80.0-100.0); Monocytes % (auto) 7.4 % (0.0-12.0); Neutrophils % (auto) 80.6 % (37.0-80.0); Nucleated Red Blood Cells % 0.3 %; Platelet Count (auto) 301 10^3/uL (140-450); Red Blood Cells 4.17 10^6/uL (4.0-5.20); White Blood Cell 9.1 10^3/uL (4.4-10.8)
[2018-09-12 06:39] LABS: BUN/Creatinine Ratio 16.9; Calcium 8.3 mg/dL (8.5-10.1); Potassium 4.3 mmol/L (3.5-5.1)
[2018-09-12] MEDS: LEVOTHYROXINE SODIUM 25 MCG TAB PO SCH (07:20)
[2018-09-12] MEDS: GABAPENTIN 300 MG CAP PO SCH ×3 (07:20→21:25)
--- NOTE | 2018-09-12 08:14 | NUR ---
MS admit from [facility] admitted to tele/MS after SBAR received. Patient oriented to LUKASZ BURRELL, primary RN, unit, room, bed, and unit policies regarding patient care and visiting hours. Patient weighed by bedscale and encouraged to call if they need something. All questions and concerns addressed, patient verbalized understanding.
[2018-09-12] MEDS: LEVOFLOXACIN 750MG 150 ML IV SCH (09:31)
[2018-09-12] MEDS: AZITHROMYCIN 500MG/ 250ML 250 ML IV SCH (11:28)
[2018-09-12] MEDS: MIRTAZAPINE 30 MG TAB PO SCH (11:29)
[2018-09-12] MEDS: ASPirin-EC 325mg tab PO SCH (11:29)
[2018-09-12 13:00] VITALS: BP 106/70
[2018-09-12] MEDS: MORPHINE SULFATE 10 MG/ML INJ 1ML SDV IV PRN ×2 (14:05→21:24)
--- NOTE | 2018-09-12 14:30 | NUR ---
DR. BEVERLY AT BEDSIDE.
[2018-09-12] MEDS ORDERED: ATOR1TAB PO (14:37)
[2018-09-12] MEDS ORDERED: LAMO25TA27 PO (14:56)
[2018-09-12 17:01] VITALS: BP 107/68
--- NOTE | 2018-09-12 19:02 | NUR ---
RT NOTE PT WAS SEEN BY RT FOR HHN TX. PT TOLERATES WELL VIA MASK. NO ADVERSE REACTION NOTED. CONT ORDERED. Addendum: 09/12/18 at 1903 by Cheryl Fowler RT Amended: Links added.
--- NOTE | 2018-09-12 19:15 | NUR ---
CLOSING NOTE PATIENT RESTING IN BED, NO SIGNS OF DISTRESS NOTED. REPORT GIVEN TO NIGHT RN.
[2018-09-12] MEDS: predniSONE 20 MG TAB PO SCH (21:26)
[2018-09-12] MEDS: lamoTRIgine 25 MG TAB PO SCH (21:26)
[2018-09-12] MEDS: BRIVARACETAM 100 MG PO SCH (21:27)
[2018-09-12 22:00] VITALS: BP 117/67
[2018-09-12] MEDS ORDERED: ATORVASTATIN 20 MG TAB PO SCH (22:00)
[2018-09-12] MEDS ORDERED: lamoTRIgine 25 MG TAB PO SCH (22:00)
[2018-09-12] MEDS ORDERED: BRIVARACETAM 100 MG PO SCH ×2 (22:00)
[2018-09-13] MEDS: MORPHINE SULFATE 10 MG/ML INJ 1ML SDV IV PRN ×2 (03:39→09:38)
[2018-09-13 04:55] VITALS: BP 121/78
[2018-09-13] MEDS: GABAPENTIN 300 MG CAP PO SCH ×2 (06:19→14:00)
[2018-09-13] MEDS: LEVOTHYROXINE SODIUM 25 MCG TAB PO SCH (06:19)
[2018-09-13] MEDS: IPRATROPIUM BROM 0.5 MG/2.5ML INH SOL NEB SCH ×3 (07:13→12:45)
[2018-09-13] MEDS: ALBUTEROL SULF 2.5 MG/0.5ML(0.5%) NEB SOLN NEB SCH ×3 (07:13→12:45)
[2018-09-13 09:00] VITALS: BP 92/50
[2018-09-13] MEDS: predniSONE 20 MG TAB PO SCH (09:37)
[2018-09-13] MEDS: LEVOFLOXACIN 750MG 150 ML IV SCH (09:37)
[2018-09-13] MEDS: ASPirin-EC 325mg tab PO SCH (09:37)
[2018-09-13] MEDS: lamoTRIgine 25 MG TAB PO SCH (09:37)
[2018-09-13] MEDS: MIRTAZAPINE 30 MG TAB PO SCH (09:37)
[2018-09-13] MEDS ORDERED: ESLICARBAZEPINE PO SCH (10:00)
[2018-09-13] MEDS ORDERED: ESLICARBAZEPINE 800 MG PO SCH (10:00)
[2018-09-13] MEDS ORDERED: APTIOM 800 MG PO SCH (10:00)
--- NOTE | 2018-09-13 11:20 | NUR ---
CALLED DR. BEVERLY LEFT A MESSAGE RE: PATIENT LEFT AMA. Addendum: 09/13/18 at 1128 by LUKASZ BURRELL RN WRONG PATIENT.
[2018-09-13] MEDS: AZITHROMYCIN 500MG/ 250ML 250 ML IV SCH (11:52)
--- NOTE | 2018-09-13 11:54 | NUR ---
Called Pharmacy to send Briviact and Actiom. Preethi states she will send it through bullet.
[2018-09-13] MEDS: BRIVARACETAM 100 MG PO SCH (12:42)
[2018-09-13 13:00] VITALS: BP 108/56
--- NOTE | 2018-09-13 15:53 | NUR ---
Discharge instructions given as ordered. Encourage to follow up with PMD as instructed. All questions and concerns addressed. Patient verbalized understanding. Medication reconciliation form completed and copy given to patient. Home medications held in Pharmacy returned to patient, and needed vaccines given. IV removed with catheter intact, pressure dressing applied. Patient taken to vehicle via wheelchair with all personal belongings, accompanied by staff and family member. No distress noted at time of departure.
== END 2018-09-13 16:24 | disposition home or self-care (01) | DRG 139 ==
LOC: EDUNIT# 12:24 → ER 12:24 → EDBD 12:24 → OVERFLOW 18:53 → WEST WING 09-12 08:22
PROVIDERS: ADMIT Nurse Practitioner Acute Care; ATTEND Hospitalist
DX: J18.1 Lobar pneumonia, unspecified organism (principal); I11.9 Hypertensive heart disease without heart failure; S06.9X0A Unspecified intracranial injury without loss of consciousness, initial encounter; J20.9 Acute bronchitis, unspecified; G40.909 Epilepsy, unspecified, not intractable, without status epilepticus; X58.XXXA Exposure to other specified factors, initial encounter; Z86.73 Personal history of transient ischemic attack (TIA), and cerebral infarction without residual deficits; J98.11 Atelectasis; Z79.82 Long term (current) use of aspirin; Z79.899 Other long term (current) drug therapy; Z90.710 Acquired absence of both cervix and uterus; Y93.89 Activity, other specified; Y92.89 Other specified places as the place of occurrence of the external cause
CPT/HCPCS: 36415; 71045; 71275; 80048; 80053; 80061; 83880; 84443; 84484; 85025; 85610; 85730; 87040; 94640; 96365; 96375; G0378; J1956

== ENCOUNTER 2018-09-21 13:24 | Emergency (ER) | payer MEDICAID ==
[~2018-09-21] VITALS: Ht 170.2 cm
[~2018-09-21 13:24] MED LIST changes: +ATOR1TAB PO; -ATOR40TA52 PO; +LAMO25TA27 PO
[2018-09-21 13:44] VITALS: BP 155/97
[2018-09-21 14:02] LABS: Basophils # (auto) 0.1 uL; Eosinophils # (auto) 0.1 uL
[2018-09-21 14:04] LABS: Basophils % (auto) 0.9 % (0.0-2.0); Eosinophils % (auto) 1.2 % (0.0-7.0); Hematocrit 34.9 % (36.0-46.0); Lymphocytes # (auto) 2.2 uL; Lymphocytes % (auto) 23.4 % (10.0-50.0); Mean Corpuscular Hemoglobin 25.7 pg (28.0-32.0); Mean Corpuscular Hgb Conc. 31.4 g/dL (32.0-36.0); Mean Corpuscular Volume 81.8 fL (80.0-100.0); Monocytes # (auto) 0.6 uL; Monocytes % (auto) 6.5 % (0.0-12.0); Neutrophils # (auto) 6.5 uL; Nucleated Red Blood Cells % 0.1 %; Platelet Count (auto) 358 10^3/uL (140-450); Red Blood Cells 4.27 10^6/uL (4.0-5.20); Red Cell Distribution Width 17.3 % (11.8-14.3); White Blood Cell 9.5 10^3/uL (4.4-10.8)
[2018-09-21 14:20] LABS: Albumin 3.8 g/dL (3.4-5.0); Anion Gap 4 (5-15); Blood Urea Nitrogen 9 mg/dL (7-18); Calcium 8.3 mg/dL (8.5-10.1); Carbon Dioxide 28 mmol/L (21-32); Chloride 106 mmol/L (98-107); Glucose 126 mg/dL (74-106); Magnesium 2.4 mg/dL (1.6-2.6); Potassium 3.7 mmol/L (3.5-5.1); Sodium 138 mmol/L (136-145)
[2018-09-21 14:25] LABS: Alanine Aminotransferase 38 U/L (13-56); Alkaline Phosphatase 160 U/L (45-117); Aspartate Aminotransferase 20 U/L (15-37); Bilirubin, Total 0.1 mg/dL (0.2-1.0); GFR African American > 60 mL/min; GFR Non-African American > 60 mL/min; Total Protein 7.2 g/dL (6.4-8.2)
[2018-09-21 14:31] LABS: BUN/Creatinine Ratio 9.5
== END 2018-09-21 15:20 | disposition left against medical advice (07) ==
LOC: EDBD 13:24 → ER 13:30
DX: R06.02 Shortness of breath (principal); Z53.21 Procedure and treatment not carried out due to patient leaving prior to being seen by health care provider
CPT/HCPCS: 36415; 71046; 80053; 83735; 84484; 85025; 93005

== ENCOUNTER 2018-12-09 13:34 | Emergency (ER) | payer MEDICAID ==
[~2018-12-09] VITALS: Ht 170.2 cm; Wt 101.2 kg
[2018-12-09 14:47] LABS: Urine Bacteria FEW /hpf (None Seen); Urine Blood Negative /uL (Negative); Urine Specific Gravity 1.007 (1.001-1.035); Urine WBC 9 /hpf (0 - 5)
[2018-12-09 15:12] VITALS: BP 145/76
[2018-12-09 15:21] LABS: Basophils # (auto) 0 uL; Basophils % (auto) 0.7 % (0.0-2.0); Eosinophils # (auto) 0.2 uL; Eosinophils % (auto) 3.7 % (0.0-7.0); Hematocrit 35.4 % (36.0-46.0); Hemoglobin 11.4 g/dL (12.2-16.2); Lymphocytes # (auto) 1.2 uL; Lymphocytes % (auto) 23.4 % (10.0-50.0); Mean Corpuscular Hemoglobin 27.9 pg (28.0-32.0); Mean Corpuscular Hgb Conc. 32.1 g/dL (32.0-36.0); Monocytes # (auto) 0.8 uL; Monocytes % (auto) 14.8 % (0.0-12.0); Neutrophils # (auto) 2.9 uL; Neutrophils % (auto) 57.4 % (37.0-80.0); Nucleated Red Blood Cells % 0.1 %; Platelet Count (auto) 245 10^3/uL (140-450); Red Blood Cells 4.07 10^6/uL (4.0-5.20); Red Cell Distribution Width 19.7 % (11.8-14.3); White Blood Cell 5.1 10^3/uL (4.4-10.8)
[2018-12-09 15:28] LABS: Albumin 3.5 g/dL (3.4-5.0); Anion Gap 5 (5-15); BUN/Creatinine Ratio 8.6; Blood Urea Nitrogen 6 mg/dL (7-18); Calcium 8.4 mg/dL (8.5-10.1); Carbon Dioxide 28 mmol/L (21-32); Chloride 107 mmol/L (98-107); GFR African American 112 mL/min; GFR Non-African American 93 mL/min; Glucose 98 mg/dL (74-106); Potassium 3.3 mmol/L (3.5-5.1); Sodium 140 mmol/L (136-145)
[2018-12-09 15:33] LABS: Alanine Aminotransferase 37 U/L (13-56); Alkaline Phosphatase 157 U/L (45-117); Aspartate Aminotransferase 24 U/L (15-37); Bilirubin, Total 0.1 mg/dL (0.2-1.0); Total Protein 6.9 g/dL (6.4-8.2)
[2018-12-09] MEDS ORDERED: POTASSIUM CHL 10% (20 MEQ/15ML) 15ml ORAL SOLN PO ONE (16:00)
[2018-12-09] MEDS ORDERED: IBUPROFEN 800 MG TAB PO ONE (16:15)
== END 2018-12-09 17:16 | disposition home or self-care (01) ==
LOC: ER 13:37
DX: N39.0 Urinary tract infection, site not specified (principal); R06.02 Shortness of breath; R05 Cough; R07.0 Pain in throat; E11.9 Type 2 diabetes mellitus without complications; E78.5 Hyperlipidemia, unspecified; E07.9 Disorder of thyroid, unspecified; Z90.710 Acquired absence of both cervix and uterus
CPT/HCPCS: 36415; 71046; 80053; 81001; 84484; 85025; 93005

== ENCOUNTER 2019-03-10 18:09 | Emergency (ER) | payer MEDICAID ==
[~2019-03-10] VITALS: Ht 172.7 cm; Wt 101.2 kg
[2019-03-10 18:56] VITALS: BP 133/80
[2019-03-10] MEDS ORDERED: HYDROcodone-ACET 5/325MG TAB PO ONE (19:30)
[2019-03-10] MEDS ORDERED: IBUPROFEN 600 MG TAB PO ONE (19:30)
== END 2019-03-10 20:00 | disposition home or self-care (01) ==
LOC: ER 18:20
DX: M25.531 Pain in right wrist (principal); E11.9 Type 2 diabetes mellitus without complications; E78.5 Hyperlipidemia, unspecified; Z88.0 Allergy status to penicillin; Z88.8 Allergy status to other drugs, medicaments and biological substances; Z79.899 Other long term (current) drug therapy; Z79.82 Long term (current) use of aspirin; W18.2XXA Fall in (into) shower or empty bathtub, initial encounter; Y93.89 Activity, other specified; Y92.89 Other specified places as the place of occurrence of the external cause; Y99.8 Other external cause status
CPT/HCPCS: 29125; 73090; 73110

== ENCOUNTER 2019-03-12 12:10 | Emergency (ER) | payer MEDICAID ==
[~2019-03-12] VITALS: Ht 172.7 cm; Wt 100.2 kg
[2019-03-12 12:16] VITALS: BP 117/76
[2019-03-12] MEDS ORDERED: KETOROLAC TROMETH 60MG/2ML VIAL IM ONE ×2 (15:15→15:30)
== END 2019-03-12 15:39 | disposition home or self-care (01) ==
LOC: ER 12:10
DX: M25.531 Pain in right wrist (principal); E11.9 Type 2 diabetes mellitus without complications; E78.5 Hyperlipidemia, unspecified; Z86.39 Personal history of other endocrine, nutritional and metabolic disease; Z90.710 Acquired absence of both cervix and uterus; Z88.0 Allergy status to penicillin; Z79.899 Other long term (current) drug therapy
CPT/HCPCS: 96372; 99283; J1885

== ENCOUNTER 2019-04-16 17:26 | Emergency (ER) | payer MEDICAID ==
[~2019-04-16] VITALS: Ht 170.2 cm; Wt 98.4 kg
[~2019-04-16 17:26] MED LIST changes: -MIRT15TA3 PO; +MIRT1TAB38 PO
[2019-04-16 17:54] VITALS: BP 119/80
== END 2019-04-16 23:57 | disposition left against medical advice (07) ==
LOC: ER 17:26
DX: R07.89 Other chest pain (principal); Z53.21 Procedure and treatment not carried out due to patient leaving prior to being seen by health care provider
CPT/HCPCS: 71101; 71250

== ENCOUNTER 2019-06-22 08:27 | Inpatient (IN) | payer MEDICAID ==
[~2019-06-22] VITALS: Ht 170.2 cm; Wt 96.2 kg
[2019-06-22] MEDS ORDERED: SODIUM CHLORIDE 0.9% 1,000 ML IV ONE ×2 (08:55)
[2019-06-22] MEDS ORDERED: LEVETIRACETAM INJ 1,000 MG in D5W 5% 100 ML IV ONE (10:15)
[2019-06-22] MEDS ORDERED: LORazepam 2MG/ML-1ML VIAL IV ONE (10:15)
[2019-06-22 10:42] LABS: Basophils # (auto) 0 uL; Basophils % (auto) 0.4 % (0.0-2.0); Eosinophils # (auto) 0.1 uL; Eosinophils % (auto) 0.8 % (0.0-7.0); Hematocrit 40.5 % (36.0-46.0); Hemoglobin 13.2 g/dL (12.2-16.2); Lymphocytes # (auto) 0.8 uL; Lymphocytes % (auto) 9.6 % (10.0-50.0); Mean Corpuscular Hemoglobin 29.8 pg (28.0-32.0); Mean Corpuscular Hgb Conc. 32.6 g/dL (32.0-36.0); Mean Corpuscular Volume 91.6 fL (80.0-100.0); Monocytes # (auto) 0.5 uL; Monocytes % (auto) 6.5 % (0.0-12.0); Neutrophils # (auto) 6.6 uL; Neutrophils % (auto) 82.7 % (37.0-80.0); Platelet Count (auto) 291 10^3/uL (140-450); Red Blood Cells 4.42 10^6/uL (4.0-5.20); Red Cell Distribution Width 14.7 % (11.8-14.3); White Blood Cell 7.9 10^3/uL (4.4-10.8)
[2019-06-22 10:56] LABS: Albumin 3.9 g/dL (3.4-5.0); Anion Gap 8 (5-15); BUN/Creatinine Ratio 13.4; Blood Urea Nitrogen 11 mg/dL (7-18); Calcium 9.2 mg/dL (8.5-10.1); Carbon Dioxide 24 mmol/L (21-32); Chloride 109 mmol/L (98-107); GFR African American 93 mL/min; GFR Non-African American 77 mL/min; Glucose 109 mg/dL (74-106); Potassium 4.5 mmol/L (3.5-5.1); Sodium 141 mmol/L (136-145)
[2019-06-22 11:01] LABS: Alanine Aminotransferase 175 U/L (13-56); Alkaline Phosphatase 154 U/L (45-117); Aspartate Aminotransferase 378 U/L (15-37); Bilirubin, Total 0.2 mg/dL (0.2-1.0); Total Protein 7.6 g/dL (6.4-8.2)
[2019-06-22] MEDS ORDERED: MORPHINE SULF INJ 2 MG/ML SYRINGE 1ML IV PRN (12:45)
[2019-06-22] MEDS ORDERED: ACETAMINOPHEN 500 MG TAB PO PRN (12:45)
[2019-06-22] MEDS ORDERED: traMADol HCL 50 MG TAB PO PRN (12:45)
[2019-06-22] MEDS ORDERED: NITROGLYCERIN 0.4 MG SL TAB SL PRN (12:45)
[2019-06-22] MEDS ORDERED: GABAPENTIN 400 MG CAP PO SCH (14:00)
--- NOTE | 2019-06-22 15:01 | NUR ---
Patient arrived from ER. Patient was assisted by two people to her bed. Patient is A & O x 4. Patient is sleepy and lethargic. Patient was able to turn to give a urine sample on bedpan. Side rails padded x2, suction set up at bedside, bed alarm on. Patient is c/o pain to the right arm and legs, patient states "I take [place] at home for pain." Will medicate per orders. POC discussed. Bed is in lowest, locked position, call light within reach. BP 114/77, HR 88, RR 16, O2 94 on 2 L nasal cannula, T 98.0, will continue to monitor Q1h and PRN.
[2019-06-22] MEDS: LORazepam 2MG/ML-1ML VIAL IV PRN ×2 (15:39→23:20)
--- NOTE | 2019-06-22 15:42 | NUR ---
Seizure activity Patient used bedpan, went to get new gown for patient. When this RN returned, patient was moving side to side, slamming R fist into the bed repeatedly, patient moaning, unable to respond to commands, patient on oxygen turned up to 4 L nasal cannula, patient breathing during this time, color remained normal. Lasted for 30 seconds, patient calmed down, stopped moving, continued breathing, and after opening eyes but not responding to commands, patient started the same episode a second time for 30 seconds. This RN called devulcanizer charger Erik to bedside, and went to get Ativan for patient. This RN returned at 1544, and seizure activity stopped. At 1547 patient was awake and alert and able to answer questions without trouble. Hammad Garcia, hospitalist paged.
--- NOTE | 2019-06-22 15:47 | NUR ---
Hammad Garcia returned page. Hospitalist notified of seizure activity, and patient pain. Patient requesting "IV pain medication only." Orders received, read back and verified.
[2019-06-22] MEDS ORDERED: METF-370 (16:32)
[2019-06-22] MEDS ORDERED: HYDR-4798 (16:32)
[2019-06-22 16:48] LABS: Urine Bacteria FEW /hpf (None Seen); Urine Blood Negative /uL (Negative); Urine Mucus FEW (None Seen); Urine Specific Gravity 1.027 (1.001-1.035); Urine WBC 4 /hpf (0 - 5)
[2019-06-22 17:00] VITALS: BP 125/78
[2019-06-22] MEDS: InsuLIN REG 1unit/0.01ml Soln (100units/ml) SC SCH ×2 (17:00→22:00)
[2019-06-22] MEDS ORDERED: DEXTROSE (50%) 50ML SYRG IV PRN (17:00)
[2019-06-22 17:51] VITALS: BP 114/77
[2019-06-22 18:01] LABS: Alcohol, Urine < 3.0 mg/dL (0-5); Amphetamine Screen, Urine NEGATIVE (NEGATIVE); Barbiturate Scree,Urine NEGATIVE (NEGATIVE); Benzodiazephine Screen, Urine NEGATIVE (NEGATIVE); Cannabinoid Screen, Urine NEGATIVE (NEGATIVE); Cocaine Screen, Urine NEGATIVE (NEGATIVE); Opiate Scree,Urine NEGATIVE (NEGATIVE); Phencyclidine Screen, Urine NEGATIVE (NEGATIVE)
[2019-06-22] MEDS: MORPHINE SULF INJ 2 MG/ML SYRINGE 1ML IV PRN ×2 (18:40→22:40)
[2019-06-22] MEDS: ACCU-CHEK COMFORT CURVE STRIP VI SCH ×2 (18:48→22:16)
--- NOTE | 2019-06-22 20:30 | NUR ---
PATIENT IV PUMP ALARMING, CHECKED PATIENT IV ACCESS 22 LEFT HAND APPEARS TO BE BENT, REDRESSED IV ACCES FLUSHED, NO S/S INFILTRATION NOTED. INFORMED PATIENT IF IT CONTINUES TO ALARM PUMP WILL START NEW IV ACCESS. PATIENT IS AWAKE ALERT AND ORIENTED AND STATES SHE HAS 20/10 PAIN TO HER BACK, AND NEVER HAD THAT KIND OF PAIN BEFORE. INFORMED PATIENT PAIN MEDICATION MORPHINE LAST GIVEN 1839 AND NOT DUE UNTIL 2239. OFFERED PATIENT ULTRAM AND TYLENOL PRN BUT PATIENT REFUSED, AND WENT BACK. WILL CONTINUE TO MONITOR PATIENT.
--- NOTE | 2019-06-22 20:48 | NUR ---
NEURO CONSULT DR WILLIS HERE AT TO EXAMINE PATIENT.
[2019-06-22] MEDS ORDERED: ATORVASTATIN 20 MG TAB PO SCH ×2 (21:30→22:00)
[2019-06-22] MEDS ORDERED: ASPirin 325 MG TAB PO SCH (21:30)
[2019-06-22] MEDS: GABAPENTIN 400 MG CAP PO SCH ×2 (21:30→22:17)
[2019-06-22 22:00] VITALS: BP 130/66
[2019-06-22] MEDS ORDERED: lamoTRIgine 25 MG TAB PO SCH (22:00)
--- NOTE | 2019-06-22 23:29 | NUR ---
SEIZURE ACTIVITY PATIENT HAD PRESSED THE CALL LIGHT BUT NOT RESPONDING. WENT TO PATIENT BEDSIDE PATIENT IS LYING IN HIGH FOWLERS POSITION WITH O2 2LNC, PATIENT SHAKING SEIZURE LIKE ACTIVITY NOT RESPONDING TO PAINFUL STIMULI, EYES CLOSED AND PATIENT MOANING. OBTAINED PATIENT ATIVAN 1MG IV ADMINISTERED PRESCRIBED. ONCE ATIVAN WAS PUSHED PATIENT RELAXED AND SEIZURE ACTIVITY STOPPED. PATIENT LYING IN BED COMFORTABLY ASLEEP. WILL CONTINUE TO MONITOR PATIENT.
[2019-06-23] MEDS: MORPHINE SULF INJ 2 MG/ML SYRINGE 1ML IV PRN ×4 (04:36→20:43)
[2019-06-23 05:00] VITALS: BP 106/69
[2019-06-23] MEDS: ACCU-CHEK COMFORT CURVE STRIP VI SCH ×4 (05:59→22:06)
[2019-06-23] MEDS: LEVOTHYROXINE SODIUM 25 MCG TAB PO SCH (06:00)
[2019-06-23] MEDS: InsuLIN REG 1unit/0.01ml Soln (100units/ml) SC SCH ×4 (06:21→22:00)
[2019-06-23 07:01] LABS: Basophils # (auto) 0.1 uL; Eosinophils # (auto) 0.2 uL; Eosinophils % (auto) 3.6 % (0.0-7.0); Lymphocytes # (auto) 1.5 uL; Lymphocytes % (auto) 29.3 % (10.0-50.0); Mean Corpuscular Hemoglobin 30.5 pg (28.0-32.0); Mean Corpuscular Hgb Conc. 33.2 g/dL (32.0-36.0); Mean Corpuscular Volume 91.9 fL (80.0-100.0); Monocytes # (auto) 0.4 uL; Monocytes % (auto) 7.9 % (0.0-12.0); Neutrophils # (auto) 2.9 uL; Neutrophils % (auto) 58.2 % (37.0-80.0); Nucleated Red Blood Cells % 0.1 %; Platelet Count (auto) 269 10^3/uL (140-450); Red Blood Cells 4.25 10^6/uL (4.0-5.20); Red Cell Distribution Width 14.2 % (11.8-14.3)
[2019-06-23 07:12] LABS: Albumin 3.5 g/dL (3.4-5.0); Calcium 8.2 mg/dL (8.5-10.1); Potassium 4.1 mmol/L (3.5-5.1)
[2019-06-23 07:13] LABS: BUN/Creatinine Ratio 15.2
[2019-06-23 07:16] LABS: Bilirubin, Total 0.2 mg/dL (0.2-1.0); Total Protein 6.8 g/dL (6.4-8.2)
--- NOTE | 2019-06-23 08:15 | NUR ---
Opening Note Assumed care of patient, she is A & O x 4, patient is c/o pain to the right arm and bilateral legs, states "I take [place] at home for this pain." Assisted patient to bedside commode with minimal assistance. She had a bowel movement and urinated at this time. POC discussed with patient. Bed is in lowest , locked position, call light within reach, bed alarm on, side rails padded and up x2, suction at bedside, patient on 2L NC. Will continue to monitor Q1h and PRN.
[2019-06-23 09:39] VITALS: BP 120/72
[2019-06-23] MEDS: GABAPENTIN 400 MG CAP PO SCH ×2 (09:44→22:06)
[2019-06-23] MEDS: ASPirin-EC 81 mg tab PO SCH (09:44)
[2019-06-23] MEDS ORDERED: ASPirin 325 MG TAB PO SCH (10:00)
[2019-06-23] MEDS ORDERED: ESLICARBAZEPINE ACETATE PO SCH (10:00)
--- NOTE | 2019-06-23 11:13 | NUR ---
Seizure Activity Helped patient up to bedside commode. Patient got back into bed, patient closed her eyes and started head and arm movements back and forth on the bed, moving head side to side, moaning and respiratory rate increased, lasted about 40 seconds and patient stopped all movement but respirations decreased back to normal. Patient unable to answer questions, eyes closed. Patient rested for 2 minutes then started the same movement for 5 seconds then stopped. Patient was post ictal for 2 minutes, eyes half open, not answering questions. Then patient opened her eyes and was able to follow commands and tell this RN her name. BP 125/70, HR 75, O2 96% on 2 L NC, RR 14, T 98.7. Will page Dr. Pan.
--- NOTE | 2019-06-23 11:38 | NUR ---
Spoke to Dr. Pan Regarding seizure activity, he is aware, no further orders at this time.
--- NOTE | 2019-06-23 12:08 | NUR ---
Patient having seizure activity during EEG testing. bottle house quality control technician notified this RN, she was moving head side to side, respirations increased, moving arms and legs side to side, patient moaning, this lasted 30 seconds. Patient stopped for 1 minute, then continued for 30 seconds, this RN went to [facility], when returned patient was waking up, able to answer questions at this time. Patient crying, saying "I wet myself." Will page Dr. Pan.
--- NOTE | 2019-06-23 12:23 | NUR ---
Spoke to Dr. Pan Orders received, read back and verified. Will medicate per orders.
[2019-06-23] MEDS: LORazepam 2MG/ML-1ML VIAL IV PRN (12:31)
[2019-06-23 13:00] VITALS: BP 125/70
[2019-06-23 15:20] LABS: Cholesterol 192 mg/dL (< 200); Triglycerides 161 mg/dL (< 150)
[2019-06-23 15:22] LABS: HDL Cholesterol 48 mg/dL (40-59); LDL Cholesterol 128 mg/dL (< 100)
--- NOTE | 2019-06-23 15:40 | NUR ---
Patient had family bring home medications. Patient took 2 of her Aptiom pills as prescribed on the bottle, when her family brought the medication. Her fiance was in the room and witnessed her taking the pills. She was supposed to take a dose this morning and was waiting for the family to bring the medication. Instructed patient and family that we will send the bottle of medication to the pharmacy and they will dispense the medication as prescribed for the patient. POM band placed on medication and medication sent to pharmacy. Patient understands and agrees to the plan of care, family will take the rest of her medications home, and not take any medications that are not dispensed by the attending RN.
[2019-06-23 17:09] VITALS: BP 114/65
[2019-06-23 22:00] VITALS: BP 106/67
[2019-06-24] MEDS: MORPHINE SULF INJ 2 MG/ML SYRINGE 1ML IV PRN ×2 (01:47→06:20)
[2019-06-24 05:00] VITALS: BP 99/64
[2019-06-24] MEDS: LEVOTHYROXINE SODIUM 25 MCG TAB PO SCH (06:19)
[2019-06-24] MEDS: ACCU-CHEK COMFORT CURVE STRIP VI SCH ×2 (06:19→11:30)
[2019-06-24] MEDS: InsuLIN REG 1unit/0.01ml Soln (100units/ml) SC SCH ×2 (06:19→11:30)
[2019-06-24 06:31] LABS: Basophils # (auto) 0.1 uL; Basophils % (auto) 1.2 % (0.0-2.0); Eosinophils # (auto) 0.2 uL; Eosinophils % (auto) 3.7 % (0.0-7.0); Hematocrit 40.2 % (36.0-46.0); Hemoglobin 13.4 g/dL (12.2-16.2); Lymphocytes # (auto) 1.5 uL; Lymphocytes % (auto) 26.2 % (10.0-50.0); Mean Corpuscular Hemoglobin 30.4 pg (28.0-32.0); Mean Corpuscular Hgb Conc. 33.2 g/dL (32.0-36.0); Mean Corpuscular Volume 91.4 fL (80.0-100.0); Monocytes # (auto) 0.5 uL; Monocytes % (auto) 9.2 % (0.0-12.0); Neutrophils # (auto) 3.4 uL; Neutrophils % (auto) 59.7 % (37.0-80.0); Nucleated Red Blood Cells % 0.1 %; Platelet Count (auto) 289 10^3/uL (140-450); Red Cell Distribution Width 14.7 % (11.8-14.3); White Blood Cell 5.7 10^3/uL (4.4-10.8)
[2019-06-24 06:51] LABS: Albumin 3.5 g/dL (3.4-5.0); Calcium 8.8 mg/dL (8.5-10.1); Potassium 3.9 mmol/L (3.5-5.1)
[2019-06-24 06:58] LABS: BUN/Creatinine Ratio 17.1; Bilirubin, Total 0.2 mg/dL (0.2-1.0); Total Protein 7.2 g/dL (6.4-8.2)
[2019-06-24 09:00] VITALS: BP 113/57
[2019-06-24] MEDS ORDERED: ESLICARBAZEPINE ACETATE PO SCH (10:00)
[2019-06-24] MEDS: ASPirin-EC 81 mg tab PO SCH (10:12)
[2019-06-24] MEDS: GABAPENTIN 400 MG CAP PO SCH (10:12)
--- NOTE | 2019-06-24 10:28 | NUR ---
Dr. Darling bedside with patient. Per Dr. Darling, Dr. Pan ok with patient discharging today.
[2019-06-24 12:17] VITALS: BP 109/71
[2019-06-24 13:00] VITALS: BP 109/71
[2019-06-24 13:37] VITALS: BP 109/71
--- NOTE | 2019-06-24 13:42 | NUR ---
Dr. Bam Briggs on unit, she would like patient to make appointment at her office to f/u regarding her liver. Added Dr. Jones contact info to discharge instructions.
--- NOTE | 2019-06-24 14:23 | NUR ---
Discharge instructions given as ordered. Encouraged to follow up with PMD, Neurologist and Dr. Bam Briggs. All questions and concerns addressed. Patient verbalized understanding. Medication reconciliation form completed and copy given to patient. Home medications held in Pharmacy returned to patient, no vaccines given to patient, as patient refused. . IV removed with catheter intact and pressure dressing applied.
--- NOTE | 2019-06-24 14:23 | NUR ---
Patient taken to vehicle via wheelchair with all personal belongings, accompanied by staff member. No distress noted at time of departure.
[2019-06-25] MEDS ORDERED: ESLICARBAZEPINE ACETATE PO SCH (10:00)
== END 2019-06-24 14:25 | disposition home or self-care (01) | DRG 53 ==
LOC: ER 08:30 → OVERFLOW 08:31 → CENTRAL 14:55
PROVIDERS: ADMIT Nurse Practitioner Acute Care; ATTEND Internal Medicine
DX: G40.901 Epilepsy, unspecified, not intractable, with status epilepticus (principal); G93.41 Metabolic encephalopathy; F11.20 Opioid dependence, uncomplicated; K76.0 Fatty (change of) liver, not elsewhere classified; E11.9 Type 2 diabetes mellitus without complications; E66.9 Obesity, unspecified; F41.9 Anxiety disorder, unspecified; E78.00 Pure hypercholesterolemia, unspecified; F17.200 Nicotine dependence, unspecified, uncomplicated; Z86.73 Personal history of transient ischemic attack (TIA), and cerebral infarction without residual deficits; Z68.33 Body mass index [BMI] 33.0-33.9, adult; Z88.0 Allergy status to penicillin; Z88.8 Allergy status to other drugs, medicaments and biological substances; Z79.82 Long term (current) use of aspirin; Z79.84 Long term (current) use of oral hypoglycemic drugs; Z79.899 Other long term (current) drug therapy; Z90.710 Acquired absence of both cervix and uterus; Z82.0 Family history of epilepsy and other diseases of the nervous system; Z82.49 Family history of ischemic heart disease and other diseases of the circulatory system; Z83.3 Family history of diabetes mellitus
CPT/HCPCS: 36415; 70450; 71045; 76705; 80053; 80061; 80307; 81001; 82962; 83036; 83735; 84443; 84484; 85025; 86141; 95819; 96361; 96365; 96367; 96375; 97163; G0378; J7060

== ENCOUNTER 2019-10-08 13:12 | Emergency (ER) | payer MEDICAID ==
[~2019-10-08 13:12] MED LIST changes: +ERGO400T PO; +ERTU5TAB PO; +FERR-20 PO; +HYDR-4798; +LAM100T PO; +LEVO-28 PO; +METF-370; +MIRT30TA PO; +TIZA4TAB9 PO
[2019-10-08 14:24] LABS: Basophils # (auto) 0.1 uL; Eosinophils # (auto) 0 uL; Eosinophils % (auto) 0.6 % (0.0-7.0); Hematocrit 40.6 % (36.0-46.0); Hemoglobin 13.3 g/dL (12.2-16.2); Lymphocytes # (auto) 1.3 uL; Lymphocytes % (auto) 20.2 % (10.0-50.0); Mean Corpuscular Hemoglobin 30.3 pg (28.0-32.0); Mean Corpuscular Hgb Conc. 32.8 g/dL (32.0-36.0); Mean Corpuscular Volume 92.5 fL (80.0-100.0); Monocytes # (auto) 0.5 uL; Monocytes % (auto) 7.1 % (0.0-12.0); Neutrophils # (auto) 4.6 uL; Neutrophils % (auto) 71.1 % (37.0-80.0); Platelet Count (auto) 284 10^3/uL (140-450); Red Blood Cells 4.39 10^6/uL (4.0-5.20); Red Cell Distribution Width 15.2 % (11.8-14.3); White Blood Cell 6.4 10^3/uL (4.4-10.8)
[2019-10-08 14:35] LABS: Albumin 4.1 g/dL (3.4-5.0); BUN/Creatinine Ratio 8.2; Calcium 8.5 mg/dL (8.5-10.1); Potassium 3.6 mmol/L (3.5-5.1)
[2019-10-08 14:46] LABS: Bilirubin, Total 0.1 mg/dL (0.2-1.0); Total Protein 7.5 g/dL (6.4-8.2)
== END 2019-10-08 15:00 | disposition left against medical advice (07) ==
LOC: EDBD 13:12 → ER 13:12
DX: R56.9 Unspecified convulsions (principal); Z53.21 Procedure and treatment not carried out due to patient leaving prior to being seen by health care provider
CPT/HCPCS: 36415; 80053; 82542; 85025

== ENCOUNTER 2021-04-05 11:58 | Emergency (ER) | payer MEDICAID ==
[~2021-04-05] VITALS: Ht 170.2 cm; Wt 78.0 kg
[~2021-04-05 11:58] MED LIST changes: +ATOR-47 PO; -ATOR1TAB PO; -LEVO-28 PO; -MIRT30TA PO
[2021-04-05 12:13] VITALS: BP 108/61
[2021-04-05] MEDS ORDERED: SODIUM CHLORIDE 0.9% 1,000 ML IVB ONE (12:30)
[2021-04-05] MEDS ORDERED: ONDANSETRON HCL 4 MG/2 ML VIAL IV ONE (12:30)
[2021-04-05 13:18] LABS: Basophils # (auto) 0.1 10 ^3/uL (0-0.2); Basophils % (auto) 0.7 % (0.0-2.0); Eosinophils # (auto) 0.1 10 ^3/uL (0-0.8); Eosinophils % (auto) 0.8 % (0.0-7.0); Hematocrit 37.1 % (36.0-46.0); Hemoglobin 12.5 g/dL (12.2-16.2); Lymphocytes # (auto) 1.7 10 ^3/uL (0.4-5.4); Lymphocytes % (auto) 18.3 % (10.0-50.0); Mean Corpuscular Hemoglobin 29.9 pg (28.0-32.0); Mean Corpuscular Hgb Conc. 33.7 g/dL (32.0-36.0); Mean Corpuscular Volume 88.7 fL (80.0-100.0); Monocytes # (auto) 0.5 10 ^3/uL (0-1.3); Monocytes % (auto) 5.4 % (0.0-12.0); Neutrophils # (auto) 6.9 10 ^3/uL (1.6-8.6); Neutrophils % (auto) 74.8 % (37.0-80.0); Red Blood Cells 4.18 10^6/uL (4.0-5.20); Red Cell Distribution Width 14.7 % (11.8-14.3); White Blood Cell 9.2 10^3/uL (4.4-10.8)
[2021-04-05 13:39] LABS: Albumin 3.5 g/dL (3.4-5.0); Calcium 8.7 mg/dL (8.5-10.1); Potassium 4.1 mmol/L (3.5-5.1)
[2021-04-05 13:42] LABS: BUN/Creatinine Ratio 16.5; Bilirubin, Total 0.2 mg/dL (0.2-1.0); Total Protein 7.2 g/dL (6.4-8.2)
== END 2021-04-05 13:47 | disposition left against medical advice (07) ==
LOC: ER 11:58
DX: N20.0 Calculus of kidney (principal); J44.9 Chronic obstructive pulmonary disease, unspecified; E11.9 Type 2 diabetes mellitus without complications; E78.5 Hyperlipidemia, unspecified; Z90.710 Acquired absence of both cervix and uterus; Z79.82 Long term (current) use of aspirin; Z79.899 Other long term (current) drug therapy; Z88.0 Allergy status to penicillin; Z88.8 Allergy status to other drugs, medicaments and biological substances
CPT/HCPCS: 36415; 71046; 74176; 80053; 82150; 83690; 85025; 93005

== ENCOUNTER 2021-04-17 11:10 | Emergency (ER) | payer MEDICAID ==
[~2021-04-17] VITALS: Ht 170.2 cm; Wt 78.0 kg
[2021-04-17] MEDS ORDERED: SODIUM CHLORIDE 0.9% 1,000 ML IV ONE ×2 (11:30)
[2021-04-17 11:39] LABS: Basophils # (auto) 0.1 10 ^3/uL (0-0.2); Basophils % (auto) 0.9 % (0.0-2.0); Eosinophils # (auto) 0 10 ^3/uL (0-0.8); Eosinophils % (auto) 0.7 % (0.0-7.0); Hematocrit 33.4 % (36.0-46.0); Hemoglobin 11.5 g/dL (12.2-16.2); Lymphocytes # (auto) 1.3 10 ^3/uL (0.4-5.4); Lymphocytes % (auto) 20.4 % (10.0-50.0); Mean Corpuscular Hgb Conc. 34.5 g/dL (32.0-36.0); Mean Corpuscular Volume 89.8 fL (80.0-100.0); Monocytes # (auto) 0.4 10 ^3/uL (0-1.3); Monocytes % (auto) 6.9 % (0.0-12.0); Neutrophils # (auto) 4.4 10 ^3/uL (1.6-8.6); Neutrophils % (auto) 71.1 % (37.0-80.0); Nucleated Red Blood Cells % 0.1 %; Red Blood Cells 3.72 10^6/uL (4.0-5.20); Red Cell Distribution Width 15.2 % (11.8-14.3); White Blood Cell 6.2 10^3/uL (4.4-10.8)
[2021-04-17 12:07] LABS: Albumin 3.1 g/dL (3.4-5.0); Anion Gap 4 (5-15); Blood Urea Nitrogen 10 mg/dL (7-18); Calcium 7.6 mg/dL (8.5-10.1); Carbon Dioxide 23 mmol/L (21-32); Chloride 114 mmol/L (98-107); Glucose 91 mg/dL (74-106); Lipase 90 U/L (73-393); Potassium 4.3 mmol/L (3.5-5.1); Sodium 141 mmol/L (136-145)
[2021-04-17 12:13] LABS: Alanine Aminotransferase 35 U/L (13-56); Alkaline Phosphatase 100 U/L (45-117); Aspartate Aminotransferase 29 U/L (15-37); BUN/Creatinine Ratio 15.6; Bilirubin, Total 0.2 mg/dL (0.2-1.0); GFR African American 123 mL/min; GFR Non-African American 102 mL/min; Total Protein 6.6 g/dL (6.4-8.2)
[2021-04-17] MEDS ORDERED: KETOROLAC TROMETH 30 MG/ML 1ML VIAL ONE (12:51)
[2021-04-17] MEDS ORDERED: KETOROLAC TROMETH 30 MG/ML 1ML VIAL IV ONE (13:00)
[2021-04-17 13:24] LABS: Urine Blood Normal /uL (Negative); Urine Specific Gravity 1.032 (1.001-1.035)
[2021-04-17 13:44] LABS: Urine Bacteria NONE SEEN /hpf (None Seen); Urine Mucus FEW (None Seen); Urine WBC 6 /hpf (0 - 5)
[2021-04-17 14:11] VITALS: BP 110/67
== END 2021-04-17 14:14 | disposition home or self-care (01) ==
LOC: ER 11:10
DX: N20.0 Calculus of kidney (principal); J44.9 Chronic obstructive pulmonary disease, unspecified; E11.9 Type 2 diabetes mellitus without complications; E78.5 Hyperlipidemia, unspecified; Z90.710 Acquired absence of both cervix and uterus; Z79.82 Long term (current) use of aspirin; Z79.899 Other long term (current) drug therapy; Z88.0 Allergy status to penicillin; Z88.8 Allergy status to other drugs, medicaments and biological substances
CPT/HCPCS: 36415; 71045; 74176; 80053; 81001; 83690; 84484; 85025; 93005; 96374; 99285; J1885; J7030

== ENCOUNTER 2021-04-26 08:07 | Emergency (ER) | payer MEDICAID ==
[~2021-04-26] VITALS: Ht 170.2 cm; Wt 78.5 kg
[2021-04-26 09:35] VITALS: BP 95/53
[2021-04-26] MEDS ORDERED: KETOROLAC TROMETH 60MG/2ML VIAL IM ONE (10:00)
== END 2021-04-26 10:27 | disposition home or self-care (01) ==
LOC: ER 08:07
DX: N39.0 Urinary tract infection, site not specified (principal); E11.9 Type 2 diabetes mellitus without complications; J44.9 Chronic obstructive pulmonary disease, unspecified; E78.5 Hyperlipidemia, unspecified; Z90.710 Acquired absence of both cervix and uterus; Z79.82 Long term (current) use of aspirin; Z79.899 Other long term (current) drug therapy; Z88.0 Allergy status to penicillin; Z88.8 Allergy status to other drugs, medicaments and biological substances
CPT/HCPCS: 93005; 96372; 99283; J1885

== ENCOUNTER 2021-05-06 19:35 | Emergency (ER) | payer MEDICAID ==
[~2021-05-06] VITALS: Ht 170.2 cm; Wt 78.9 kg
[2021-05-06 20:17] VITALS: BP 117/70
== END 2021-05-06 23:59 | disposition left against medical advice (07) ==
LOC: ER 19:37
DX: R11.2 Nausea with vomiting, unspecified (principal); Z53.21 Procedure and treatment not carried out due to patient leaving prior to being seen by health care provider

== ENCOUNTER 2021-05-11 18:47 | Inpatient (IN) | payer MEDICAID ==
[~2021-05-11] VITALS: Ht 175.3 cm; Wt 81.0 kg
[2021-05-11 19:59] LABS: Basophils # (auto) 0.1 10 ^3/uL (0-0.2); Basophils % (auto) 0.5 % (0.0-2.0); Eosinophils # (auto) 0 10 ^3/uL (0-0.8); Eosinophils % (auto) 0.1 % (0.0-7.0); Hematocrit 40.4 % (36.0-46.0); Hemoglobin 13.3 g/dL (12.2-16.2); Lymphocytes # (auto) 1.1 10 ^3/uL (0.4-5.4); Lymphocytes % (auto) 11.1 % (10.0-50.0); Mean Corpuscular Hemoglobin 29.8 pg (28.0-32.0); Mean Corpuscular Hgb Conc. 32.9 g/dL (32.0-36.0); Mean Corpuscular Volume 90.5 fL (80.0-100.0); Monocytes % (auto) 9.7 % (0.0-12.0); Neutrophils % (auto) 78.6 % (37.0-80.0); Red Blood Cells 4.46 10^6/uL (4.0-5.20); Red Cell Distribution Width 14.5 % (11.8-14.3); White Blood Cell 10.2 10^3/uL (4.4-10.8)
[2021-05-11 20:18] LABS: Alanine Aminotransferase 22 U/L (13-56); Albumin 3.1 g/dL (3.4-5.0); Anion Gap 8 (5-15); Aspartate Aminotransferase 51 U/L (15-37); BUN/Creatinine Ratio 13.1; Blood Alcohol < 3.0 mg/dL (0-5); Blood Urea Nitrogen 14 mg/dL (7-18); Calcium 8.2 mg/dL (8.5-10.1); Carbon Dioxide 26 mmol/L (21-32); Chloride 105 mmol/L (98-107); GFR African American 68 mL/min; GFR Non-African American 56 mL/min; Glucose 97 mg/dL (74-106); Magnesium 2.3 mg/dL (1.6-2.6); Potassium 3.7 mmol/L (3.5-5.1); Sodium 139 mmol/L (136-145)
[2021-05-11 20:22] LABS: INR 1.07 (0.9-1.15); Partial Thromboplastin Time 25.3 sec (23.6-33.0)
[2021-05-11 20:23] LABS: Alkaline Phosphatase 99 U/L (45-117); Bilirubin, Total 0.2 mg/dL (0.2-1.0); Total Protein 6.8 g/dL (6.4-8.2)
[2021-05-11] MEDS ORDERED: SODIUM CHLORIDE 0.9% 1,000 ML IV ONE (21:15)
[2021-05-11] MEDS ORDERED: AZITHROMYCIN 500MG/ 250ML 250 ML IV ONE (21:15)
[2021-05-11] MEDS ORDERED: cefTRIAXone 1GM/50ML D5W 50 ML IV ONE (21:15)
[2021-05-11 21:22] LABS: Amphetamine Screen, Urine NEGATIVE (NEGATIVE); Barbiturate Scree,Urine NEGATIVE (NEGATIVE); Benzodiazephine Screen, Urine NEGATIVE (NEGATIVE); Cannabinoid Screen, Urine NEGATIVE (NEGATIVE); Cocaine Screen, Urine NEGATIVE (NEGATIVE); Opiate Scree,Urine NEGATIVE (NEGATIVE); Phencyclidine Screen, Urine NEGATIVE (NEGATIVE)
[2021-05-11 21:25] LABS: Urine Amorphous Crystal FEW /hpf (None Seen); Urine Bacteria NONE SEEN /hpf (None Seen); Urine Blood Negative /uL (Negative); Urine Mucus FEW (None Seen); Urine Specific Gravity 1.033 (1.001-1.035); Urine WBC 8 /hpf (0 - 5)
[2021-05-12] MEDS ORDERED: IOHEXOL 350 MG/ML 100ML IJ ONE (01:29)
[2021-05-12] MEDS ORDERED: SODIUM CHLORIDE 0.9% 1,000 ML IV ONE (01:45)
[2021-05-12] MEDS ORDERED: MORPHINE SULFATE INJECTION 2 MG/ML SYRG IV PRN (01:45)
[2021-05-12] MEDS ORDERED: ONDANSETRON HCL 4 MG/2 ML VIAL IV PRN (01:45)
[2021-05-12] MEDS ORDERED: NITROGLYCERIN 0.4 MG SL TAB SL PRN (01:45)
[2021-05-12 07:11] LABS: Potassium 3.7 mmol/L (3.5-5.1)
[2021-05-12 07:14] LABS: Basophils # (auto) 0 10 ^3/uL (0-0.2); Basophils % (auto) 0.3 % (0.0-2.0); Eosinophils # (auto) 0 10 ^3/uL (0-0.8); Eosinophils % (auto) 0.1 % (0.0-7.0); Hematocrit 38.2 % (36.0-46.0); Hemoglobin 12.9 g/dL (12.2-16.2); Lymphocytes # (auto) 0.6 10 ^3/uL (0.4-5.4); Lymphocytes % (auto) 4.1 % (10.0-50.0); Mean Corpuscular Hemoglobin 30.4 pg (28.0-32.0); Mean Corpuscular Hgb Conc. 33.8 g/dL (32.0-36.0); Mean Corpuscular Volume 89.8 fL (80.0-100.0); Neutrophils # (auto) 12.3 10 ^3/uL (1.6-8.6); Neutrophils % (auto) 88.5 % (37.0-80.0); Nucleated Red Blood Cells % 0.1 %; Red Blood Cells 4.26 10^6/uL (4.0-5.20); Red Cell Distribution Width 14.5 % (11.8-14.3); White Blood Cell 13.9 10^3/uL (4.4-10.8)
[2021-05-12 07:15] LABS: BUN/Creatinine Ratio 14.7; Calcium 8.7 mg/dL (8.5-10.1)
[2021-05-12] MEDS ORDERED: lamoTRIgine 25 MG TAB PO SCH (10:00)
[2021-05-12] MEDS ORDERED: lamoTRIgine 100 MG TAB PO SCH (10:00)
[2021-05-12] MEDS ORDERED: ESLICARBAZEPINE 800 MG PO SCH (10:00)
[2021-05-12] MEDS: cefTRIAXone 1GM/50ML D5W 50 ML IV SCH (10:28)
[2021-05-12] MEDS: AZITHROMYCIN 500MG/ 250ML 250 ML IV SCH (11:02)
[2021-05-12] MEDS ORDERED: HYDROcodone-ACET 10/325MG TAB PO ONE (13:15)
[2021-05-12] MEDS ORDERED: LORazepam 2MG/ML-1ML VIAL IV PRN (18:00)
[2021-05-12] MEDS: GABAPENTIN 300 MG CAP PO SCH (22:23)
[2021-05-12] MEDS: HYDROcodone-ACET 5/325MG TAB PO PRN (22:29)
[2021-05-13] MEDS: GABAPENTIN 300 MG CAP PO SCH ×3 (06:41→21:56)
[2021-05-13] MEDS: cefTRIAXone 1GM/50ML D5W 50 ML IV SCH ×2 (09:05→10:18)
[2021-05-13] MEDS: ESLICARBAZEPINE PO SCH (10:00)
[2021-05-13] MEDS: AZITHROMYCIN 500MG/ 250ML 250 ML IV SCH (10:18)
[2021-05-13] MEDS: HYDROcodone-ACET 5/325MG TAB PO PRN (12:41)
[2021-05-14] MEDS: GABAPENTIN 300 MG CAP PO SCH ×2 (06:20→13:10)
[2021-05-14 08:37] LABS: Basophils # (auto) 0.1 10 ^3/uL (0-0.2); Basophils % (auto) 0.8 % (0.0-2.0); Eosinophils # (auto) 0.1 10 ^3/uL (0-0.8); Eosinophils % (auto) 0.9 % (0.0-7.0); Hematocrit 39.4 % (36.0-46.0); Lymphocytes # (auto) 1.5 10 ^3/uL (0.4-5.4); Lymphocytes % (auto) 14.6 % (10.0-50.0); Mean Corpuscular Hemoglobin 29.8 pg (28.0-32.0); Mean Corpuscular Hgb Conc. 32.9 g/dL (32.0-36.0); Mean Corpuscular Volume 90.6 fL (80.0-100.0); Monocytes # (auto) 0.8 10 ^3/uL (0-1.3); Monocytes % (auto) 7.5 % (0.0-12.0); Neutrophils # (auto) 7.7 10 ^3/uL (1.6-8.6); Neutrophils % (auto) 76.2 % (37.0-80.0); Red Blood Cells 4.34 10^6/uL (4.0-5.20); Red Cell Distribution Width 15.2 % (11.8-14.3); White Blood Cell 10.1 10^3/uL (4.4-10.8)
[2021-05-14 08:55] LABS: BUN/Creatinine Ratio 16.7; Calcium 9.1 mg/dL (8.5-10.1); Potassium 4.2 mmol/L (3.5-5.1)
[2021-05-14] MEDS: ESLICARBAZEPINE PO SCH (10:00)
[2021-05-14] MEDS: AZITHROMYCIN 500MG/ 250ML 250 ML IV SCH (10:13)
[2021-05-14] MEDS: cefTRIAXone 1GM/50ML D5W 50 ML IV SCH (10:13)
[2021-05-14 12:45] VITALS: BP 95/53
[2021-05-14] MEDS: HYDROcodone-ACET 5/325MG TAB PO PRN (13:04)
[2021-05-14] MEDS ORDERED: GABA300C10 PO (14:50)
[2021-05-14 16:18] VITALS: BP 95/53
== END 2021-05-14 17:26 | disposition home health service (06) | DRG 139 ==
LOC: EDBD 18:47 → ER 18:56 → TELE 05-12 01:34 → TELE-CENTR 05-14 12:36
PROVIDERS: ADMIT Hospitalist; ATTEND Hospitalist
DX: J18.9 Pneumonia, unspecified organism (principal); J96.01 Acute respiratory failure with hypoxia; G92 Toxic encephalopathy; J44.0 Chronic obstructive pulmonary disease with (acute) lower respiratory infection; E11.40 Type 2 diabetes mellitus with diabetic neuropathy, unspecified; G40.909 Epilepsy, unspecified, not intractable, without status epilepticus; G89.4 Chronic pain syndrome; Z20.822 Contact with and (suspected) exposure to COVID-19; E03.9 Hypothyroidism, unspecified; E78.5 Hyperlipidemia, unspecified; F17.200 Nicotine dependence, unspecified, uncomplicated; F31.9 Bipolar disorder, unspecified; Z79.82 Long term (current) use of aspirin; Z83.3 Family history of diabetes mellitus; Z86.73 Personal history of transient ischemic attack (TIA), and cerebral infarction without residual deficits; Z82.0 Family history of epilepsy and other diseases of the nervous system; Z79.899 Other long term (current) drug therapy; Z82.49 Family history of ischemic heart disease and other diseases of the circulatory system; Z90.710 Acquired absence of both cervix and uterus; Z88.0 Allergy status to penicillin; Z88.8 Allergy status to other drugs, medicaments and biological substances; R91.8 Other nonspecific abnormal finding of lung field; J98.11 Atelectasis; Y90.0 Blood alcohol level of less than 20 mg/100 ml; Z53.29 Procedure and treatment not carried out because of patient's decision for other reasons
CPT/HCPCS: 36415; 70450; 71045; 71275; 72125; 80048; 80053; 80307; 80320; 81001; 82140; 83605; 83735; 84443; 84484; 85025; 85379; 85610; 85730; 87040; 87426; 93005; 93970; 95819; 96361; 96365; 96366; 96367; G0378; J0696; J2405

== ENCOUNTER 2021-05-23 09:10 | Emergency (ER) | payer MEDICAID ==
[~2021-05-23] VITALS: Ht 177.8 cm; Wt 81.6 kg
[~2021-05-23 09:10] MED LIST changes: +GABA300C10 PO; -GABA800T97 PO; -TIZA4TAB9 PO
[2021-05-23] MEDS ORDERED: SODIUM CHLORIDE 0.9% 1,000 ML IV ONE ×2 (10:15)
[2021-05-23] MEDS ORDERED: LORazepam 2MG/ML-1ML VIAL IV ONE (10:15)
[2021-05-23 11:01] LABS: Basophils # (auto) 0 10 ^3/uL (0-0.2); Basophils % (auto) 0.7 % (0.0-2.0); Eosinophils # (auto) 0 10 ^3/uL (0-0.8); Eosinophils % (auto) 0.3 % (0.0-7.0); Hematocrit 41.5 % (36.0-46.0); Hemoglobin 13.6 g/dL (12.2-16.2); Lymphocytes # (auto) 0.9 10 ^3/uL (0.4-5.4); Lymphocytes % (auto) 16.4 % (10.0-50.0); Mean Corpuscular Hemoglobin 30.1 pg (28.0-32.0); Mean Corpuscular Hgb Conc. 32.7 g/dL (32.0-36.0); Mean Corpuscular Volume 91.8 fL (80.0-100.0); Monocytes # (auto) 0.4 10 ^3/uL (0-1.3); Monocytes % (auto) 7.9 % (0.0-12.0); Neutrophils # (auto) 4.2 10 ^3/uL (1.6-8.6); Neutrophils % (auto) 74.7 % (37.0-80.0); Nucleated Red Blood Cells % 0.1 %; Red Blood Cells 4.52 10^6/uL (4.0-5.20); Red Cell Distribution Width 15.2 % (11.8-14.3); White Blood Cell 5.6 10^3/uL (4.4-10.8)
[2021-05-23 11:11] LABS: Chloride 104 mmol/L (98-107); Potassium 3.7 mmol/L (3.5-5.1); Sodium 138 mmol/L (136-145)
[2021-05-23 11:20] LABS: Alanine Aminotransferase 30 U/L (13-56); Albumin 3.2 g/dL (3.4-5.0); Alkaline Phosphatase 78 U/L (45-117); Anion Gap 9 (5-15); Aspartate Aminotransferase 26 U/L (15-37); Bilirubin, Total 0.3 mg/dL (0.2-1.0); Blood Urea Nitrogen 19 mg/dL (7-18); Calcium 8.7 mg/dL (8.5-10.1); Carbon Dioxide 25 mmol/L (21-32); GFR African American 101 mL/min; GFR Non-African American 84 mL/min; Glucose 109 mg/dL (74-106); Total Protein 7.1 g/dL (6.4-8.2)
[2021-05-23 12:30] VITALS: BP 99/58
[2021-05-23 13:10] LABS: Urine Bacteria NONE SEEN /hpf (None Seen); Urine Blood Negative /uL (Negative); Urine Mucus FEW (None Seen); Urine Specific Gravity 1.049 (1.001-1.035); Urine WBC 5 /hpf (0 - 5)
== END 2021-05-23 14:13 | disposition home or self-care (01) ==
LOC: ER 09:10 → EDBD 09:10 → ER 14:13
DX: R56.9 Unspecified convulsions (principal); J44.9 Chronic obstructive pulmonary disease, unspecified; E11.9 Type 2 diabetes mellitus without complications; E78.5 Hyperlipidemia, unspecified; Z90.710 Acquired absence of both cervix and uterus
CPT/HCPCS: 36415; 70450; 71045; 80053; 81001; 84484; 85025; 93005; 96374; 99285; J2060

== ENCOUNTER 2021-06-10 14:47 | Emergency (ER) | payer MEDICAID ==
[~2021-06-10] VITALS: Ht 170.2 cm; Wt 72.6 kg
[2021-06-10 14:48] VITALS: BP 110/69
[2021-06-10 16:06] LABS: Basophils # (auto) 0 10 ^3/uL (0-0.2); Basophils % (auto) 0.5 % (0.0-2.0); Eosinophils # (auto) 0 10 ^3/uL (0-0.8); Eosinophils % (auto) 0.3 % (0.0-7.0); Hematocrit 36.5 % (36.0-46.0); Hemoglobin 12.1 g/dL (12.2-16.2); Lymphocytes # (auto) 1.5 10 ^3/uL (0.4-5.4); Mean Corpuscular Volume 90.7 fL (80.0-100.0); Monocytes # (auto) 0.4 10 ^3/uL (0-1.3); Monocytes % (auto) 7.1 % (0.0-12.0); Neutrophils # (auto) 4.3 10 ^3/uL (1.6-8.6); Neutrophils % (auto) 68.1 % (37.0-80.0); Nucleated Red Blood Cells % 0.1 %; Red Blood Cells 4.03 10^6/uL (4.0-5.20); Red Cell Distribution Width 15.3 % (11.8-14.3); White Blood Cell 6.3 10^3/uL (4.4-10.8)
[2021-06-10 16:32] LABS: Albumin 3.6 g/dL (3.4-5.0); Anion Gap 8 (5-15); Blood Urea Nitrogen 14 mg/dL (7-18); Calcium 9.1 mg/dL (8.5-10.1); Carbon Dioxide 27 mmol/L (21-32); Chloride 108 mmol/L (98-107); Glucose 99 mg/dL (74-106); Potassium 3.7 mmol/L (3.5-5.1); Sodium 143 mmol/L (136-145)
[2021-06-10 16:39] LABS: Alanine Aminotransferase 28 U/L (13-56); Alkaline Phosphatase 82 U/L (45-117); Aspartate Aminotransferase 14 U/L (15-37); BUN/Creatinine Ratio 21.9; Bilirubin, Total 0.2 mg/dL (0.2-1.0); GFR African American 123 mL/min; GFR Non-African American 102 mL/min; Total Protein 6.8 g/dL (6.4-8.2)
== END 2021-06-10 16:19 | disposition home or self-care (01) ==
LOC: EDBD 14:47 → ER 14:47
DX: R53.1 Weakness (principal); E11.9 Type 2 diabetes mellitus without complications; E78.5 Hyperlipidemia, unspecified; J44.9 Chronic obstructive pulmonary disease, unspecified; Z90.710 Acquired absence of both cervix and uterus; Z79.899 Other long term (current) drug therapy; Z88.0 Allergy status to penicillin; Z88.8 Allergy status to other drugs, medicaments and biological substances
CPT/HCPCS: 36415; 80053; 84484; 85025; 93005

== ENCOUNTER 2021-06-18 10:40 | Emergency (ER) | payer MEDICAID ==
[~2021-06-18] VITALS: Ht 170.2 cm; Wt 61.1 kg
[2021-06-18] MEDS ORDERED: ONDANSETRON ODT 4 MG TAB PO ONE (12:00)
[2021-06-18] MEDS ORDERED: SUMAtriptan SUCCINATE 6 MG/0.5 ML VL SC ONE (12:00)
[2021-06-18 12:46] VITALS: BP 130/76
== END 2021-06-18 12:49 | disposition home or self-care (01) ==
LOC: ER 10:40
DX: G43.909 Migraine, unspecified, not intractable, without status migrainosus (principal); J44.9 Chronic obstructive pulmonary disease, unspecified; E11.9 Type 2 diabetes mellitus without complications; E78.5 Hyperlipidemia, unspecified; E03.9 Hypothyroidism, unspecified; Z79.82 Long term (current) use of aspirin; Z79.899 Other long term (current) drug therapy; Z88.0 Allergy status to penicillin
CPT/HCPCS: 96372; 99283; J3030; Q0162

== ENCOUNTER 2021-06-19 06:35 | Emergency (ER) | payer MEDICAID ==
[~2021-06-19] VITALS: Ht 170.2 cm; Wt 75.7 kg
[2021-06-19] MEDS ORDERED: OXYCODONE W/ ACETAMINOPHEN 5/325MG TABLET PO ONE (07:15)
[2021-06-19] MEDS ORDERED: ONDANSETRON ODT 4 MG TAB PO ONE (07:15)
[2021-06-19 07:47] VITALS: BP 124/79
[2021-06-19 08:05] LABS: Urine Bacteria FEW /hpf (None Seen); Urine Blood 1+ /uL (Negative); Urine Mucus FEW (None Seen); Urine Specific Gravity 1.017 (1.001-1.035); Urine WBC 11 /hpf (0 - 5)
[2021-06-19 08:18] LABS: Amphetamine Screen, Urine NEGATIVE (NEGATIVE); Barbiturate Scree,Urine POSITIVE (NEGATIVE); Benzodiazephine Screen, Urine NEGATIVE (NEGATIVE); Cannabinoid Screen, Urine NEGATIVE (NEGATIVE); Cocaine Screen, Urine NEGATIVE (NEGATIVE); Opiate Scree,Urine NEGATIVE (NEGATIVE); Phencyclidine Screen, Urine NEGATIVE (NEGATIVE)
[2021-06-19 08:24] LABS: Alcohol, Urine < 3.0 mg/dL (0-10)
[2021-06-19 08:26] LABS: Basophils # (auto) 0 10 ^3/uL (0-0.2); Basophils % (auto) 0.3 % (0.0-2.0); Eosinophils # (auto) 0 10 ^3/uL (0-0.8); Eosinophils % (auto) 0.1 % (0.0-7.0); Hematocrit 39.2 % (36.0-46.0); Hemoglobin 12.7 g/dL (12.2-16.2); Lymphocytes # (auto) 0.9 10 ^3/uL (0.4-5.4); Lymphocytes % (auto) 15.5 % (10.0-50.0); Mean Corpuscular Hemoglobin 29.8 pg (28.0-32.0); Mean Corpuscular Hgb Conc. 32.4 g/dL (32.0-36.0); Mean Corpuscular Volume 91.9 fL (80.0-100.0); Monocytes # (auto) 0.3 10 ^3/uL (0-1.3); Monocytes % (auto) 4.2 % (0.0-12.0); Neutrophils # (auto) 4.8 10 ^3/uL (1.6-8.6); Neutrophils % (auto) 79.9 % (37.0-80.0); Nucleated Red Blood Cells % 0.1 %; Red Blood Cells 4.26 10^6/uL (4.0-5.20); Red Cell Distribution Width 16.5 % (11.8-14.3)
[2021-06-19 08:41] LABS: BUN/Creatinine Ratio 16.1; Calcium 9.8 mg/dL (8.5-10.1); Potassium 4.1 mmol/L (3.5-5.1)
== END 2021-06-19 09:11 | disposition home or self-care (01) ==
LOC: ER 06:35
DX: G43.909 Migraine, unspecified, not intractable, without status migrainosus (principal); N30.00 Acute cystitis without hematuria; J44.9 Chronic obstructive pulmonary disease, unspecified; E78.5 Hyperlipidemia, unspecified; E03.9 Hypothyroidism, unspecified; Z86.2 Personal history of diseases of the blood and blood-forming organs and certain disorders involving the immune mechanism; Z90.710 Acquired absence of both cervix and uterus; Z79.82 Long term (current) use of aspirin; Z79.899 Other long term (current) drug therapy; Z88.0 Allergy status to penicillin; Z88.8 Allergy status to other drugs, medicaments and biological substances
CPT/HCPCS: 36415; 70450; 80048; 80307; 81001; 85025; 99284; Q0162

== ENCOUNTER 2021-07-12 16:32 | Emergency (ER) | payer MEDICAID ==
[~2021-07-12] VITALS: Ht 170.2 cm; Wt 72.6 kg
[2021-07-12 16:37] VITALS: BP 120/90
== END 2021-07-12 18:36 | disposition left against medical advice (07) ==
LOC: ER 16:32
DX: R51.9 Headache, unspecified (principal); Z53.21 Procedure and treatment not carried out due to patient leaving prior to being seen by health care provider

== ENCOUNTER → 2022-02-06 | Emergency (ER) | payer MEDICAID ==
[~2022-02-06] VITALS: Ht 170.2 cm; Wt 72.6 kg
[2022-02-06 14:37] VITALS: BP 114/76
== END | disposition home or self-care (01) ==
LOC: EDUNIT# 14:37 → EDBD 14:37 → ER 14:37
DX: R56.9 Unspecified convulsions (principal); J44.9 Chronic obstructive pulmonary disease, unspecified; E78.5 Hyperlipidemia, unspecified; E03.9 Hypothyroidism, unspecified; Z86.73 Personal history of transient ischemic attack (TIA), and cerebral infarction without residual deficits; Z86.2 Personal history of diseases of the blood and blood-forming organs and certain disorders involving the immune mechanism; Z90.710 Acquired absence of both cervix and uterus

== ENCOUNTER → 2022-03-04 | Emergency (ER) | payer MEDICAID ==
[~2022-03-04] VITALS: Ht 170.2 cm; Wt 93.0 kg
[~2022-03-04] MED LIST changes: +ACET-1080 PO; +KETOROLAC TROMETH 60MG/2ML VIAL IM ONE; +cefTRIAXone SOD 1,000 MG VL IM ONE
[2022-03-04 17:07] LABS: Urine Bacteria NONE SEEN /hpf (None Seen); Urine Blood Negative /uL (Negative); Urine Mucus FEW (None Seen); Urine Specific Gravity 1.048 (1.001-1.035); Urine WBC 5 /hpf (0 - 5)
[2022-03-04 17:19] VITALS: BP 138/72
== END | disposition home or self-care (01) ==
LOC: ER 16:30
DX: M54.50 Low back pain, unspecified (principal); N39.0 Urinary tract infection, site not specified; M62.838 Other muscle spasm; R94.31 Abnormal electrocardiogram [ECG] [EKG]
CPT/HCPCS: 81001; 93005; 96372; 99284; J0696; J1885

== ENCOUNTER 2022-03-17 14:02 | Inpatient (IN) | payer MEDICAID ==
[~2022-03-17] VITALS: Ht 172.7 cm; Wt 101.7 kg
[2022-03-17 02:24] VITALS: BP 109/65
[~2022-03-17 14:02] MED LIST changes: -KETOROLAC TROMETH 60MG/2ML VIAL IM ONE; -cefTRIAXone SOD 1,000 MG VL IM ONE
[2022-03-17] MEDS ORDERED: SODIUM CHLORIDE 0.9% 1,000 ML IV ONE (14:30)
[2022-03-17] MEDS ORDERED: LORazepam 2MG/ML-1ML VIAL IV ONE (15:00)
[2022-03-17 15:46] LABS: Basophils # (auto) 0 10 ^3/uL (0-0.2); Basophils % (auto) 0.6 % (0.0-2.0); Eosinophils # (auto) 0.1 10 ^3/uL (0-0.8); Eosinophils % (auto) 0.9 % (0.0-7.0); Hematocrit 39.3 % (36.0-46.0); Hemoglobin 12.5 g/dL (12.2-16.2); Lymphocytes # (auto) 1.6 10 ^3/uL (0.4-5.4); Lymphocytes % (auto) 21.2 % (10.0-50.0); Mean Corpuscular Hemoglobin 28.1 pg (28.0-32.0); Mean Corpuscular Hgb Conc. 31.7 g/dL (32.0-36.0); Mean Corpuscular Volume 88.7 fL (80.0-100.0); Monocytes # (auto) 0.5 10 ^3/uL (0-1.3); Monocytes % (auto) 6.4 % (0.0-12.0); Neutrophils # (auto) 5.2 10 ^3/uL (1.6-8.6); Neutrophils % (auto) 70.9 % (37.0-80.0); Red Blood Cells 4.44 10^6/uL (4.0-5.20); Red Cell Distribution Width 16.1 % (11.8-14.3); White Blood Cell 7.3 10^3/uL (4.4-10.8)
[2022-03-17 16:08] LABS: Albumin 3.9 g/dL (3.4-5.0); Anion Gap 7 (5-15); BUN/Creatinine Ratio 11.6; Blood Urea Nitrogen 11 mg/dL (7-18); Calcium 9.2 mg/dL (8.5-10.1); Carbon Dioxide 26 mmol/L (21-32); Chloride 105 mmol/L (98-107); GFR African American 78 mL/min; GFR Non-African American 64 mL/min; Glucose 90 mg/dL (74-106); Potassium 3.9 mmol/L (3.5-5.1); Sodium 138 mmol/L (136-145)
[2022-03-17 16:11] LABS: Alanine Aminotransferase 26 U/L (13-56); Alkaline Phosphatase 134 U/L (45-117); Aspartate Aminotransferase 22 U/L (15-37); Bilirubin, Total 0.2 mg/dL (0.2-1.0); Total Protein 7.7 g/dL (6.4-8.2)
[2022-03-17] MEDS ORDERED: DEXTROSE (50%) 50ML SYRG IV PRN (21:15)
[2022-03-17] MEDS ORDERED: ONDANSETRON HCL 4 MG/2 ML VIAL IV PRN (21:15)
[2022-03-17] MEDS ORDERED: MORPHINE SULFATE INJ 2 MG/ml SYRG IV PRN (21:15)
[2022-03-17] MEDS ORDERED: NITROGLYCERIN 0.4 MG SL TAB SL PRN (21:15)
[2022-03-17] MEDS ORDERED: ACETAMINOPHEN 325 MG TAB PO PRN (21:15)
[2022-03-17] MEDS: InsuLIN REG 1unit/0.01ml Soln (100units/ml) SC SCH (22:00)
[2022-03-17] MEDS: ACCU-CHEK COMFORT CURVE STRIP VI SCH (22:10)
[2022-03-17] MEDS: ATORVASTATIN 20 MG TAB PO SCH (22:20)
[2022-03-17] MEDS: GABAPENTIN 300 MG CAP PO SCH (22:21)
[2022-03-17] MEDS: lamoTRIgine 25 MG TAB PO SCH (22:37)
[2022-03-17 22:54] LABS: Urine Bacteria NONE SEEN /hpf (None Seen); Urine Blood Negative /uL (Negative); Urine Specific Gravity 1.012 (1.001-1.035); Urine WBC <1 /hpf (0 - 5)
[2022-03-18 02:27] VITALS: BP 109/65
[2022-03-18] MEDS ORDERED: HYDROcodone-ACET 5/325MG TAB PO PRN (06:00)
[2022-03-18] MEDS: ACCU-CHEK COMFORT CURVE STRIP VI SCH ×4 (06:30→21:31)
[2022-03-18] MEDS: GABAPENTIN 300 MG CAP PO SCH ×3 (06:30→21:31)
[2022-03-18] MEDS: InsuLIN REG 1unit/0.01ml Soln (100units/ml) SC SCH ×4 (06:52→21:31)
[2022-03-18 08:00] VITALS: BP 133/67
[2022-03-18 08:03] LABS: Basophils # (auto) 0 10 ^3/uL (0-0.2); Basophils % (auto) 0.9 % (0.0-2.0); Eosinophils # (auto) 0.1 10 ^3/uL (0-0.8); Eosinophils % (auto) 1.8 % (0.0-7.0); Hematocrit 36.9 % (36.0-46.0); Lymphocytes # (auto) 1.2 10 ^3/uL (0.4-5.4); Lymphocytes % (auto) 27.1 % (10.0-50.0); Mean Corpuscular Hemoglobin 28.5 pg (28.0-32.0); Mean Corpuscular Hgb Conc. 32.6 g/dL (32.0-36.0); Mean Corpuscular Volume 87.4 fL (80.0-100.0); Monocytes # (auto) 0.3 10 ^3/uL (0-1.3); Monocytes % (auto) 6.9 % (0.0-12.0); Neutrophils # (auto) 2.9 10 ^3/uL (1.6-8.6); Neutrophils % (auto) 63.3 % (37.0-80.0); Red Blood Cells 4.23 10^6/uL (4.0-5.20); Red Cell Distribution Width 16.1 % (11.8-14.3); White Blood Cell 4.6 10^3/uL (4.4-10.8)
[2022-03-18 08:18] LABS: Albumin 3.3 g/dL (3.4-5.0); Calcium 8.6 mg/dL (8.5-10.1); Potassium 3.7 mmol/L (3.5-5.1)
[2022-03-18 08:22] LABS: BUN/Creatinine Ratio 9.9; Bilirubin, Total 0.2 mg/dL (0.2-1.0)
[2022-03-18 09:00] VITALS: BP 106/57
[2022-03-18] MEDS: ENOXAPARIN SOD 40 MG/0.4 ML SYRINGE SC SCH (10:00)
[2022-03-18] MEDS: ASPirin 81 mg TAB PO SCH (10:00)
[2022-03-18] MEDS: lamoTRIgine 25 MG TAB PO SCH ×2 (10:00→21:31)
[2022-03-18 13:00] VITALS: BP 103/64
[2022-03-18] MEDS ORDERED: HYDROcodone-ACET 7.5/325MG TAB PO PRN (14:05)
[2022-03-18] MEDS: LORazepam 2MG/ML-1ML VIAL IV PRN ×2 (15:30→21:15)
[2022-03-18 17:00] VITALS: BP 99/59
[2022-03-18] MEDS: ATORVASTATIN 20 MG TAB PO SCH (21:31)
[2022-03-18 22:51] VITALS: BP 110/58
[2022-03-19 05:05] VITALS: BP 105/67
[2022-03-19] MEDS: InsuLIN REG 1unit/0.01ml Soln (100units/ml) SC SCH (06:08)
[2022-03-19] MEDS: ACCU-CHEK COMFORT CURVE STRIP VI SCH (06:08)
[2022-03-19] MEDS: GABAPENTIN 300 MG CAP PO SCH (06:23)
[2022-03-19 08:00] VITALS: BP 108/57
[2022-03-19] MEDS: ASPirin 81 mg TAB PO SCH (08:45)
[2022-03-19] MEDS: lamoTRIgine 25 MG TAB PO SCH (08:45)
[2022-03-19] MEDS: ENOXAPARIN SOD 40 MG/0.4 ML SYRINGE SC SCH (08:46)
== END 2022-03-19 10:20 | disposition left against medical advice (07) | DRG 53 ==
LOC: ER 14:02 → EDBD 14:02 → TELE 21:08 → TELE-EAST 03-18 02:27
PROVIDERS: ADMIT Nurse Practitioner; ATTEND Family Medicine
DX: G40.909 Epilepsy, unspecified, not intractable, without status epilepticus (principal); E11.9 Type 2 diabetes mellitus without complications; E78.00 Pure hypercholesterolemia, unspecified; I10 Essential (primary) hypertension; Z53.29 Procedure and treatment not carried out because of patient's decision for other reasons; J44.9 Chronic obstructive pulmonary disease, unspecified; Z20.822 Contact with and (suspected) exposure to COVID-19; Z86.73 Personal history of transient ischemic attack (TIA), and cerebral infarction without residual deficits; Z90.710 Acquired absence of both cervix and uterus; Z88.0 Allergy status to penicillin; Z88.8 Allergy status to other drugs, medicaments and biological substances
CPT/HCPCS: 36415; 70450; 71045; 80053; 81001; 82962; 84484; 85025; 87081; 93005; 96361; 96365; G0378; J2405; J7060

== ENCOUNTER 2022-03-31 11:08 | Emergency (ER) | payer MEDICAID ==
[~2022-03-31] VITALS: Ht 170.2 cm; Wt 97.5 kg
[2022-03-31 11:16] VITALS: BP 101/52
[2022-03-31] MEDS ORDERED: KETOROLAC TROMETH 60MG/2ML VIAL IM ONE (12:00)
== END 2022-03-31 12:57 | disposition home or self-care (01) ==
LOC: ER 11:08
DX: S39.012A Strain of muscle, fascia and tendon of lower back, initial encounter (principal); M54.42 Lumbago with sciatica, left side; M54.41 Lumbago with sciatica, right side; J44.9 Chronic obstructive pulmonary disease, unspecified; E11.9 Type 2 diabetes mellitus without complications; E03.9 Hypothyroidism, unspecified; E78.5 Hyperlipidemia, unspecified; Z86.73 Personal history of transient ischemic attack (TIA), and cerebral infarction without residual deficits; Z86.2 Personal history of diseases of the blood and blood-forming organs and certain disorders involving the immune mechanism; Z90.710 Acquired absence of both cervix and uterus; Z79.82 Long term (current) use of aspirin; Z79.899 Other long term (current) drug therapy; Z88.0 Allergy status to penicillin; Z88.8 Allergy status to other drugs, medicaments and biological substances; W01.0XXA Fall on same level from slipping, tripping and stumbling without subsequent striking against object, initial encounter; Y93.89 Activity, other specified; Y92.89 Other specified places as the place of occurrence of the external cause; Y99.8 Other external cause status
CPT/HCPCS: 72100; 96372; 99283; J1885

== ENCOUNTER 2022-04-21 13:35 | Emergency (ER) | payer MEDICAID ==
[~2022-04-21] VITALS: Ht 170.2 cm; Wt 93.0 kg
[2022-04-21 14:45] VITALS: BP 121/71
[2022-04-21] MEDS ORDERED: KETOROLAC TROMETH 60MG/2ML VIAL IM ONE (16:15)
== END 2022-04-21 16:54 | disposition home or self-care (01) ==
LOC: ER 13:35
DX: S83.92XA Sprain of unspecified site of left knee, initial encounter (principal); J44.9 Chronic obstructive pulmonary disease, unspecified; E11.9 Type 2 diabetes mellitus without complications; E03.9 Hypothyroidism, unspecified; E78.5 Hyperlipidemia, unspecified; Z86.2 Personal history of diseases of the blood and blood-forming organs and certain disorders involving the immune mechanism; Z86.73 Personal history of transient ischemic attack (TIA), and cerebral infarction without residual deficits; Z90.710 Acquired absence of both cervix and uterus; Z79.82 Long term (current) use of aspirin; Z79.899 Other long term (current) drug therapy; Z88.0 Allergy status to penicillin; Z88.8 Allergy status to other drugs, medicaments and biological substances; W01.0XXA Fall on same level from slipping, tripping and stumbling without subsequent striking against object, initial encounter; Y93.89 Activity, other specified; Y92.89 Other specified places as the place of occurrence of the external cause; Y99.8 Other external cause status
CPT/HCPCS: 73562; 93971; 96372; 99284; J1885

== ENCOUNTER 2022-09-19 12:32 | Emergency (ER) | payer MEDICAID ==
[~2022-09-19] VITALS: Ht 170.2 cm; Wt 93.6 kg
[2022-09-19 12:42] VITALS: BP 152/75
[2022-09-19] MEDS ORDERED: IPRATROPIUM BROM 0.5 MG/2.5ML INH SOL NEB ONE (13:15)
[2022-09-19 13:24] LABS: Basophils # (auto) 0 10 ^3/uL (0-0.2); Basophils % (auto) 0.6 % (0.0-2.0); Eosinophils # (auto) 0.2 10 ^3/uL (0-0.8); Eosinophils % (auto) 3.5 % (0.0-7.0); Hematocrit 38.6 % (36.0-46.0); Hemoglobin 12.8 g/dL (12.2-16.2); Lymphocytes # (auto) 1.4 10 ^3/uL (0.4-5.4); Lymphocytes % (auto) 20.1 % (10.0-50.0); Mean Corpuscular Hemoglobin 29.6 pg (28.0-32.0); Mean Corpuscular Hgb Conc. 33.1 g/dL (32.0-36.0); Mean Corpuscular Volume 89.4 fL (80.0-100.0); Monocytes # (auto) 0.4 10 ^3/uL (0-1.3); Monocytes % (auto) 6.1 % (0.0-12.0); Neutrophils # (auto) 4.8 10 ^3/uL (1.6-8.6); Neutrophils % (auto) 69.7 % (37.0-80.0); Red Blood Cells 4.32 10^6/uL (4.0-5.20); Red Cell Distribution Width 15.1 % (11.8-14.3); White Blood Cell 6.9 10^3/uL (4.4-10.8)
[2022-09-19] MEDS ORDERED: ALBUTEROL MEDNEB 2.5 mg/3ml NEB ONE (13:26)
[2022-09-19] MEDS ORDERED: IPRATROPIUM BROM 0.5 MG/2.5ML INH SOL ONE (13:26)
[2022-09-19] MEDS ORDERED: DexAMETHasone 4 MG TAB PO ONE (13:30)
[2022-09-19] MEDS ORDERED: ALBUTEROL MEDNEB 2.5 mg/3ml NEB NEB ONE (13:30)
[2022-09-19 13:45] LABS: Albumin 4.2 g/dL (3.4-5.0); Calcium 9.3 mg/dL (8.5-10.1); Potassium 4.3 mmol/L (3.5-5.1)
[2022-09-19 13:48] LABS: BUN/Creatinine Ratio 16.5; Bilirubin, Total 0.2 mg/dL (0.2-1.0); Total Protein 7.3 g/dL (6.4-8.2)
== END 2022-09-19 19:57 | disposition left against medical advice (07) ==
LOC: ER 12:32
DX: R07.89 Other chest pain (principal); J44.9 Chronic obstructive pulmonary disease, unspecified; E11.9 Type 2 diabetes mellitus without complications; E78.5 Hyperlipidemia, unspecified; E03.9 Hypothyroidism, unspecified; Z86.2 Personal history of diseases of the blood and blood-forming organs and certain disorders involving the immune mechanism; Z86.73 Personal history of transient ischemic attack (TIA), and cerebral infarction without residual deficits; Z90.710 Acquired absence of both cervix and uterus; Z79.82 Long term (current) use of aspirin; Z79.899 Other long term (current) drug therapy; Z88.0 Allergy status to penicillin; Z88.8 Allergy status to other drugs, medicaments and biological substances
CPT/HCPCS: 36415; 71046; 80053; 83880; 84484; 85025; 93005; 94640; 99285; J7644; J8540

== ENCOUNTER 2022-09-21 12:35 | Emergency (ER) | payer MEDICAID ==
[~2022-09-21] VITALS: Ht 167.6 cm; Wt 72.7 kg
[2022-09-21] MEDS ORDERED: ASPirin 325 MG TAB PO ONE (12:45)
[2022-09-21 14:10] LABS: Basophils # (auto) 0.1 10 ^3/uL (0-0.2); Basophils % (auto) 0.8 % (0.0-2.0); Eosinophils # (auto) 0.2 10 ^3/uL (0-0.8); Hematocrit 36.2 % (36.0-46.0); Hemoglobin 11.7 g/dL (12.2-16.2); Lymphocytes # (auto) 1.9 10 ^3/uL (0.4-5.4); Lymphocytes % (auto) 24.7 % (10.0-50.0); Mean Corpuscular Hemoglobin 29.2 pg (28.0-32.0); Mean Corpuscular Hgb Conc. 32.3 g/dL (32.0-36.0); Mean Corpuscular Volume 90.3 fL (80.0-100.0); Monocytes # (auto) 0.4 10 ^3/uL (0-1.3); Monocytes % (auto) 5.7 % (0.0-12.0); Neutrophils # (auto) 5.1 10 ^3/uL (1.6-8.6); Neutrophils % (auto) 66.8 % (37.0-80.0); Nucleated Red Blood Cells % 0.1 %; Red Blood Cells 4.01 10^6/uL (4.0-5.20); Red Cell Distribution Width 15.3 % (11.8-14.3); White Blood Cell 7.6 10^3/uL (4.4-10.8)
[2022-09-21 14:27] LABS: Albumin 3.8 g/dL (3.4-5.0); BUN/Creatinine Ratio 18.5; Calcium 8.7 mg/dL (8.5-10.1)
[2022-09-21 14:30] LABS: Bilirubin, Total 0.2 mg/dL (0.2-1.0); Total Protein 6.7 g/dL (6.4-8.2)
[2022-09-21 15:16] LABS: Urine Bacteria FEW /hpf (None Seen); Urine Blood Negative /uL (Negative); Urine Specific Gravity 1.011 (1.001-1.035); Urine WBC 2 /hpf (0 - 5)
[2022-09-21] MEDS ORDERED: IBU600T PO (17:22)
[2022-09-21] MEDS ORDERED: NITR-87 PO (17:29)
[2022-09-21 18:54] VITALS: BP 116/73
== END 2022-09-21 21:20 | disposition left against medical advice (07) ==
LOC: EDBD 12:35 → ER 12:35
DX: R07.89 Other chest pain (principal); N39.0 Urinary tract infection, site not specified; F41.9 Anxiety disorder, unspecified; J44.9 Chronic obstructive pulmonary disease, unspecified; E11.9 Type 2 diabetes mellitus without complications; E78.5 Hyperlipidemia, unspecified; Z86.73 Personal history of transient ischemic attack (TIA), and cerebral infarction without residual deficits; Z90.710 Acquired absence of both cervix and uterus; Z98.890 Other specified postprocedural states; Z88.0 Allergy status to penicillin; Z88.8 Allergy status to other drugs, medicaments and biological substances; Z79.899 Other long term (current) drug therapy
CPT/HCPCS: 36415; 80053; 81001; 84484; 85025; 85379; 93005

== ENCOUNTER 2022-11-11 17:16 | Emergency (ER) | payer MEDICAID ==
[~2022-11-11] VITALS: Ht 170.2 cm; Wt 92.8 kg
[~2022-11-11 17:16] MED LIST changes: +IBU600T PO; +NITR-87 PO
[2022-11-11 17:30] VITALS: BP 127/72
[2022-11-11 18:27] LABS: Basophils # (auto) 0.1 10 ^3/uL (0-0.2); Basophils % (auto) 0.9 % (0.0-2.0); Eosinophils # (auto) 0.2 10 ^3/uL (0-0.8); Eosinophils % (auto) 2.9 % (0.0-7.0); Hemoglobin 12.3 g/dL (12.2-16.2); Lymphocytes # (auto) 2.1 10 ^3/uL (0.4-5.4); Lymphocytes % (auto) 27.1 % (10.0-50.0); Mean Corpuscular Hemoglobin 29.7 pg (28.0-32.0); Mean Corpuscular Hgb Conc. 33.2 g/dL (32.0-36.0); Mean Corpuscular Volume 89.5 fL (80.0-100.0); Monocytes # (auto) 0.6 10 ^3/uL (0-1.3); Monocytes % (auto) 7.5 % (0.0-12.0); Neutrophils # (auto) 4.8 10 ^3/uL (1.6-8.6); Neutrophils % (auto) 61.6 % (37.0-80.0); Red Blood Cells 4.14 10^6/uL (4.0-5.20); Red Cell Distribution Width 15.3 % (11.8-14.3); White Blood Cell 7.8 10^3/uL (4.4-10.8)
[2022-11-11 18:45] LABS: Urine Bacteria FEW /hpf (None Seen); Urine Blood Negative /uL (Negative); Urine Mucus FEW (None Seen); Urine Specific Gravity 1.036 (1.001-1.035); Urine WBC 10 /hpf (0 - 5)
[2022-11-11 18:50] LABS: Albumin 3.7 g/dL (3.4-5.0); BUN/Creatinine Ratio 13.9; Potassium 3.5 mmol/L (3.5-5.1)
[2022-11-11 18:53] LABS: Bilirubin, Total 0.1 mg/dL (0.2-1.0); Total Protein 7.3 g/dL (6.4-8.2)
== END 2022-11-11 23:09 | disposition home or self-care (01) ==
LOC: ER 17:16
DX: R04.2 Hemoptysis (principal); E87.8 Other disorders of electrolyte and fluid balance, not elsewhere classified; R74.8 Abnormal levels of other serum enzymes; J44.9 Chronic obstructive pulmonary disease, unspecified; E11.9 Type 2 diabetes mellitus without complications; E78.5 Hyperlipidemia, unspecified; Z90.710 Acquired absence of both cervix and uterus; Z86.73 Personal history of transient ischemic attack (TIA), and cerebral infarction without residual deficits
CPT/HCPCS: 36415; 71046; 80053; 81001; 85025; 93005

== ENCOUNTER 2022-12-17 17:28 | Inpatient (IN) | payer MEDICAID ==
[~2022-12-17] VITALS: Ht 170.2 cm; Wt 92.0 kg
[2022-12-17] MEDS ORDERED: SODIUM CHLORIDE 0.9% 1,000 ML IV ONE ×2 (18:00)
[2022-12-17 18:55] LABS: Basophils # (auto) 0.1 10 ^3/uL (0-0.2); Basophils % (auto) 0.9 % (0.0-2.0); Eosinophils # (auto) 0.3 10 ^3/uL (0-0.8); Eosinophils % (auto) 4.6 % (0.0-7.0); Hemoglobin 11.5 g/dL (12.2-16.2); Lymphocytes # (auto) 1.9 10 ^3/uL (0.4-5.4); Lymphocytes % (auto) 29.7 % (10.0-50.0); Mean Corpuscular Hemoglobin 29.4 pg (28.0-32.0); Mean Corpuscular Hgb Conc. 32.7 g/dL (32.0-36.0); Mean Corpuscular Volume 89.6 fL (80.0-100.0); Monocytes # (auto) 0.5 10 ^3/uL (0-1.3); Monocytes % (auto) 8.1 % (0.0-12.0); Neutrophils # (auto) 3.6 10 ^3/uL (1.6-8.6); Neutrophils % (auto) 56.7 % (37.0-80.0); Nucleated Red Blood Cells % 0.1 %; Red Cell Distribution Width 14.6 % (11.8-14.3); White Blood Cell 6.4 10^3/uL (4.4-10.8)
[2022-12-17 19:15] LABS: Albumin 3.4 g/dL (3.4-5.0); BUN/Creatinine Ratio 20.3 (10.0-20.0); Calcium 8.8 mg/dL (8.5-10.1); Potassium 3.8 mmol/L (3.5-5.1)
[2022-12-17 19:24] LABS: Bilirubin, Total 0.1 mg/dL (0.2-1.0); Total Protein 6.7 g/dL (6.4-8.2)
[2022-12-17] MEDS ORDERED: DOCUSATE SOD 100 MG CAP PO PRN (22:30)
[2022-12-17] MEDS ORDERED: ONDANSETRON HCL 4 MG/2 ML VIAL IV PRN (22:30)
[2022-12-17] MEDS ORDERED: ACETAMINOPHEN 325 MG TAB PO PRN (22:30)
[2022-12-17] MEDS ORDERED: MORPHINE SULFATE INJ 2 MG/ml SYRG IV PRN (22:30)
[2022-12-17] MEDS ORDERED: NITROGLYCERIN 0.4 MG SL TAB SL PRN (22:30)
[2022-12-18] MEDS ORDERED: DEXTROSE (50%) 50ML SYRG IV PRN
[2022-12-18 02:17] LABS: Urine Bacteria NONE SEEN /hpf (None Seen); Urine Blood Negative /uL (Negative); Urine Specific Gravity 1.011 (1.001-1.035); Urine WBC <1 /hpf (0 - 5)
[2022-12-18] MEDS: HYDROcodone-ACET 5/325MG TAB PO PRN ×2 (04:17→10:48)
[2022-12-18 04:21] LABS: Basophils # (auto) 0.1 10 ^3/uL (0-0.2); Eosinophils # (auto) 0.3 10 ^3/uL (0-0.8); Eosinophils % (auto) 4.1 % (0.0-7.0); Hematocrit 34.2 % (36.0-46.0); Hemoglobin 11.2 g/dL (12.2-16.2); Lymphocytes # (auto) 1.8 10 ^3/uL (0.4-5.4); Lymphocytes % (auto) 28.2 % (10.0-50.0); Mean Corpuscular Hemoglobin 29.7 pg (28.0-32.0); Mean Corpuscular Hgb Conc. 32.7 g/dL (32.0-36.0); Monocytes # (auto) 0.5 10 ^3/uL (0-1.3); Monocytes % (auto) 8.1 % (0.0-12.0); Neutrophils # (auto) 3.6 10 ^3/uL (1.6-8.6); Neutrophils % (auto) 58.6 % (37.0-80.0); Nucleated Red Blood Cells % 0.1 %; Red Blood Cells 3.76 10^6/uL (4.0-5.20); Red Cell Distribution Width 14.7 % (11.8-14.3); White Blood Cell 6.2 10^3/uL (4.4-10.8)
[2022-12-18 04:42] LABS: Calcium 7.8 mg/dL (8.5-10.1); Potassium 3.8 mmol/L (3.5-5.1)
[2022-12-18 04:45] LABS: BUN/Creatinine Ratio 15.9 (10.0-20.0); Bilirubin, Total 0.1 mg/dL (0.2-1.0)
[2022-12-18] MEDS ORDERED: GABAPENTIN 300 MG CAP PO SCH (06:00)
[2022-12-18] MEDS ORDERED: SODIUM CHLOR 0.9% PF (SALINE LOCK) 10ML VIAL/SYR IV SCH (06:00)
[2022-12-18] MEDS: ACCU-CHEK COMFORT CURVE STRIP VI SCH ×2 (06:24→11:57)
[2022-12-18] MEDS: InsuLIN REG 1unit/0.01ml Soln (100units/ml) SC SCH ×2 (06:24→11:30)
[2022-12-18] MEDS ORDERED: MORPHINE SULFATE INJ 2 MG/ml SYRG IV PRN (06:30)
[2022-12-18] MEDS ORDERED: LEVOTHYROXINE SODIUM 25 MCG TAB PO SCH (07:00)
[2022-12-18 10:00] VITALS: BP 105/58
[2022-12-18] MEDS ORDERED: ERTUGLIFLOZIN PO SCH (10:00)
[2022-12-18] MEDS ORDERED: PYROGLUTAMIC A PO SCH (10:00)
[2022-12-18] MEDS ORDERED: PANTOPRAZOLE 40 MG/10 ML VIAL INJ IV SCH (10:00)
[2022-12-18] MEDS ORDERED: ESLICARBAZEPINE ACETATE 800 MG PO SCH (10:00)
[2022-12-18] MEDS ORDERED: lamoTRIgine 100 MG TAB PO SCH (10:00)
[2022-12-18] MEDS ORDERED: ASPirin-EC 325mg tab PO SCH (10:00)
[2022-12-18] MEDS ORDERED: MIRTAZAPINE 30 MG TAB PO SCH (18:00)
[2022-12-18] MEDS ORDERED: ATORVASTATIN 20 MG TAB PO SCH (22:00)
[2022-12-18] MEDS ORDERED: InsuLIN REG 1unit/0.01ml Soln (100units/ml) SC SCH (22:00)
== END 2022-12-18 13:15 | disposition left against medical advice (07) | DRG 53 ==
LOC: EDBD 17:28 → EDUNIT# 17:28 → ER 17:28 → TELE 23:07
PROVIDERS: ADMIT Nurse Practitioner Family; ATTEND Internal Medicine
DX: G40.909 Epilepsy, unspecified, not intractable, without status epilepticus (principal); D64.9 Anemia, unspecified; E11.9 Type 2 diabetes mellitus without complications; E78.5 Hyperlipidemia, unspecified; F41.9 Anxiety disorder, unspecified; Z53.29 Procedure and treatment not carried out because of patient's decision for other reasons; J44.9 Chronic obstructive pulmonary disease, unspecified; Z86.73 Personal history of transient ischemic attack (TIA), and cerebral infarction without residual deficits; Z88.0 Allergy status to penicillin; Z90.710 Acquired absence of both cervix and uterus
CPT/HCPCS: 36415; 70450; 71045; 80053; 81001; 82962; 84484; 85025; 93005; 96361; 96365; 96366; 96375; C9113; G0378; J7060

== ENCOUNTER 2022-12-28 12:34 | Emergency (ER) | payer MEDICAID ==
[~2022-12-28] VITALS: Ht 170.2 cm; Wt 92.2 kg
[~2022-12-28 12:34] MED LIST changes: -NITR-87 PO
[2022-12-28 12:47] VITALS: BP 126/72
[2022-12-28 13:18] LABS: Basophils # (auto) 0.1 10 ^3/uL (0-0.2); Basophils % (auto) 0.7 % (0.0-2.0); Eosinophils # (auto) 0.2 10 ^3/uL (0-0.8); Eosinophils % (auto) 2.6 % (0.0-7.0); Hematocrit 39.4 % (36.0-46.0); Hemoglobin 12.9 g/dL (12.2-16.2); Lymphocytes # (auto) 1.6 10 ^3/uL (0.4-5.4); Lymphocytes % (auto) 17.9 % (10.0-50.0); Mean Corpuscular Hemoglobin 29.2 pg (28.0-32.0); Mean Corpuscular Hgb Conc. 32.9 g/dL (32.0-36.0); Mean Corpuscular Volume 88.7 fL (80.0-100.0); Monocytes # (auto) 0.6 10 ^3/uL (0-1.3); Monocytes % (auto) 6.3 % (0.0-12.0); Neutrophils # (auto) 6.5 10 ^3/uL (1.6-8.6); Neutrophils % (auto) 72.5 % (37.0-80.0); Nucleated Red Blood Cells % 0.1 %; Red Blood Cells 4.44 10^6/uL (4.0-5.20); Red Cell Distribution Width 14.5 % (11.8-14.3); White Blood Cell 8.9 10^3/uL (4.4-10.8)
[2022-12-28 13:49] LABS: Chloride 108 mmol/L (98-107); Sodium 137 mmol/L (136-145)
[2022-12-28 13:55] LABS: Albumin 3.8 g/dL (3.4-5.0); Anion Gap 8 (5-15); BUN/Creatinine Ratio 19.2 (10.0-20.0); Blood Urea Nitrogen 15 mg/dL (7-18); Calcium 9.6 mg/dL (8.5-10.1); Carbon Dioxide 21 mmol/L (21-32); GFR African American 98 mL/min; GFR Non-African American 81 mL/min; Glucose 109 mg/dL (74-106)
[2022-12-28 13:58] LABS: Alanine Aminotransferase 19 U/L (13-56); Alkaline Phosphatase 140 U/L (45-117); Aspartate Aminotransferase 15 U/L (15-37); Bilirubin, Total 0.2 mg/dL (0.2-1.0)
[2022-12-28 15:39] LABS: Urine Bacteria NONE SEEN /hpf (None Seen); Urine Blood Negative /uL (Negative); Urine Mucus FEW (None Seen); Urine Specific Gravity 1.034 (1.001-1.035); Urine WBC 2 /hpf (0 - 5)
== END 2022-12-28 21:22 | disposition left against medical advice (07) ==
LOC: ER 12:34
DX: R11.2 Nausea with vomiting, unspecified (principal); M79.10 Myalgia, unspecified site; Z53.21 Procedure and treatment not carried out due to patient leaving prior to being seen by health care provider
CPT/HCPCS: 36415; 80053; 81001; 85025

== ENCOUNTER 2023-02-03 15:14 | Emergency (ER) | payer MEDICAID, OTHER ==
[~2023-02-03] VITALS: Ht 170.2 cm; Wt 91.8 kg
[~2023-02-03 15:14] MED LIST changes: -FERR-20 PO; +FERR325T24 PO; +GABA-1250 PO; -GABA300C10 PO
[2023-02-03 15:35] VITALS: BP 137/84
[2023-02-03] MEDS ORDERED: KETOROLAC TROMETH 60MG/2ML VIAL IM ONE (16:00)
[2023-02-03 16:44] LABS: Urine Bacteria FEW /hpf (None Seen); Urine Blood Negative /uL (Negative); Urine Mucus FEW (None Seen); Urine WBC 106 /hpf (0 - 5)
== END 2023-02-03 18:38 | disposition home or self-care (01) ==
LOC: ER 15:14
DX: M25.512 Pain in left shoulder (principal); M25.511 Pain in right shoulder; F41.9 Anxiety disorder, unspecified; J44.9 Chronic obstructive pulmonary disease, unspecified; E78.5 Hyperlipidemia, unspecified; E11.9 Type 2 diabetes mellitus without complications; Z88.0 Allergy status to penicillin; Z88.8 Allergy status to other drugs, medicaments and biological substances; Z79.82 Long term (current) use of aspirin; Z79.84 Long term (current) use of oral hypoglycemic drugs; Z79.899 Other long term (current) drug therapy; Z86.73 Personal history of transient ischemic attack (TIA), and cerebral infarction without residual deficits; Z98.890 Other specified postprocedural states; Z90.710 Acquired absence of both cervix and uterus; V43.62XA Car passenger injured in collision with other type car in traffic accident, initial encounter; Y93.89 Activity, other specified; Y92.89 Other specified places as the place of occurrence of the external cause; Y99.8 Other external cause status
CPT/HCPCS: 72040; 81001

== ENCOUNTER 2023-03-17 09:34 | Emergency (ER) | payer MEDICAID, OTHER ==
[~2023-03-17] VITALS: Ht 170.2 cm; Wt 90.5 kg
[2023-03-17 10:40] LABS: Urine Bacteria NONE SEEN /hpf (None Seen); Urine Blood Negative /uL (Negative); Urine Mucus FEW (None Seen); Urine Specific Gravity 1.028 (1.001-1.035); Urine WBC 14 /hpf (0 - 5)
[2023-03-17 10:47] VITALS: BP 120/78
[2023-03-17] MEDS ORDERED: IPRATROPIUM BROM 0.5 MG/2.5ML INH SOL NEB ONE (11:15)
[2023-03-17] MEDS ORDERED: ALBUTEROL SULF 2.5 MG/0.5ML(0.5%) NEB SOLN NEB ONE (11:15)
[2023-03-17 12:15] LABS: Albumin 3.7 g/dL (3.4-5.0); BUN/Creatinine Ratio 11.4 (10.0-20.0); Calcium 8.8 mg/dL (8.5-10.1); Potassium 4.7 mmol/L (3.5-5.1)
[2023-03-17 12:18] LABS: Bilirubin, Total 0.1 mg/dL (0.2-1.0); Total Protein 7.4 g/dL (6.4-8.2)
[2023-03-17 12:44] LABS: Basophils # (auto) 0 10 ^3/uL (0-0.2); Basophils % (auto) 0.9 % (0.0-2.0); Eosinophils # (auto) 0.3 10 ^3/uL (0-0.8); Eosinophils % (auto) 6.1 % (0.0-7.0); Hematocrit 37.3 % (36.0-46.0); Hemoglobin 11.9 g/dL (12.2-16.2); Lymphocytes # (auto) 0.6 10 ^3/uL (0.4-5.4); Lymphocytes % (auto) 10.4 % (10.0-50.0); Mean Corpuscular Hemoglobin 28.3 pg (28.0-32.0); Mean Corpuscular Volume 88.7 fL (80.0-100.0); Monocytes # (auto) 0.5 10 ^3/uL (0-1.3); Monocytes % (auto) 9.4 % (0.0-12.0); Neutrophils # (auto) 4.1 10 ^3/uL (1.6-8.6); Neutrophils % (auto) 73.2 % (37.0-80.0); Nucleated Red Blood Cells % 0.2 %; Red Cell Distribution Width 16.2 % (11.8-14.3); White Blood Cell 5.6 10^3/uL (4.4-10.8)
[2023-03-17] MEDS ORDERED: AZITTAB PO (13:10)
[2023-03-17] MEDS ORDERED: LEVO750T8 PO (13:10)
[2023-03-17] MEDS ORDERED: cefTRIAXone SOD 1,000 MG VL IM ONE (13:30)
== END 2023-03-17 13:41 | disposition home or self-care (01) ==
LOC: ER 09:34
DX: J18.8 Other pneumonia, unspecified organism (principal); N39.0 Urinary tract infection, site not specified; F41.9 Anxiety disorder, unspecified; J44.9 Chronic obstructive pulmonary disease, unspecified; E11.9 Type 2 diabetes mellitus without complications; E78.5 Hyperlipidemia, unspecified; Z86.2 Personal history of diseases of the blood and blood-forming organs and certain disorders involving the immune mechanism; Z86.73 Personal history of transient ischemic attack (TIA), and cerebral infarction without residual deficits; Z98.890 Other specified postprocedural states; Z90.710 Acquired absence of both cervix and uterus
CPT/HCPCS: 36415; 71045; 80053; 81001; 85025; 94640; 96372; 99284; J0696; J7644

== ENCOUNTER 2023-03-19 10:44 | Emergency (ER) | payer MEDICAID ==
[~2023-03-19] VITALS: Ht 170.2 cm; Wt 89.8 kg
[~2023-03-19 10:44] MED LIST changes: +AZITTAB PO; +LEVO750T8 PO
[2023-03-19 12:08] VITALS: BP 109/73
[2023-03-19] MEDS ORDERED: ALB5IS NEB (12:25)
[2023-03-19] MEDS ORDERED: PROM1SOL4 PO (12:25)
== END 2023-03-19 12:27 | disposition home or self-care (01) ==
LOC: ER 10:44
DX: J45.909 Unspecified asthma, uncomplicated (principal); F41.9 Anxiety disorder, unspecified; E11.9 Type 2 diabetes mellitus without complications; E78.5 Hyperlipidemia, unspecified; Z86.2 Personal history of diseases of the blood and blood-forming organs and certain disorders involving the immune mechanism; Z86.73 Personal history of transient ischemic attack (TIA), and cerebral infarction without residual deficits; Z90.710 Acquired absence of both cervix and uterus; Z98.890 Other specified postprocedural states
CPT/HCPCS: 71045

== ENCOUNTER 2023-03-24 13:40 | Emergency (ER) | payer MEDICAID ==
[~2023-03-24] VITALS: Ht 170.2 cm; Wt 77.2 kg
[~2023-03-24 13:40] MED LIST changes: +ALB5IS NEB; +PROM1SOL4 PO
[2023-03-24 14:20] VITALS: PULSE 92; RESP 22; O2SAT 95
[2023-03-24 14:25] LABS: Basophils # (auto) 0 10 ^3/uL (0-0.2); Basophils % (auto) 0.6 % (0.0-2.0); Eosinophils # (auto) 0.1 10 ^3/uL (0-0.8); Eosinophils % (auto) 1.5 % (0.0-7.0); Hematocrit 34.8 % (36.0-46.0); Hemoglobin 11.3 g/dL (12.2-16.2); Lymphocytes # (auto) 1.4 10 ^3/uL (0.4-5.4); Lymphocytes % (auto) 20.3 % (10.0-50.0); Mean Corpuscular Hemoglobin 28.5 pg (28.0-32.0); Mean Corpuscular Hgb Conc. 32.6 g/dL (32.0-36.0); Mean Corpuscular Volume 87.5 fL (80.0-100.0); Monocytes # (auto) 0.4 10 ^3/uL (0-1.3); Monocytes % (auto) 6.7 % (0.0-12.0); Neutrophils # (auto) 4.7 10 ^3/uL (1.6-8.6); Neutrophils % (auto) 70.9 % (37.0-80.0); Nucleated Red Blood Cells % 0.1 %; Red Blood Cells 3.98 10^6/uL (4.0-5.20); Red Cell Distribution Width 15.7 % (11.8-14.3); White Blood Cell 6.7 10^3/uL (4.4-10.8)
[2023-03-24 15:06] LABS: Potassium 3.7 mmol/L (3.5-5.1)
[2023-03-24 15:14] LABS: Albumin 3.8 g/dL (3.4-5.0); BUN/Creatinine Ratio 12.9 (10.0-20.0); Bilirubin, Total 0.2 mg/dL (0.2-1.0); Calcium 8.3 mg/dL (8.5-10.1); Total Protein 6.7 g/dL (6.4-8.2)
[2023-03-24 16:48] VITALS: BP 127/81; PULSE 70; RESP 16; O2SAT 94
[2023-03-24 17:00] LABS: Urine Bacteria NONE SEEN /hpf (None Seen); Urine Blood Negative /uL (Negative); Urine Mucus FEW (None Seen); Urine Specific Gravity 1.031 (1.001-1.035); Urine WBC 11 /hpf (0 - 5)
[2023-03-24 17:28] LABS: Alcohol, Urine < 3.0 mg/dL (0-10); Amphetamine Screen, Urine NEGATIVE (NEGATIVE); Barbiturate Scree,Urine NEGATIVE (NEGATIVE); Benzodiazephine Screen, Urine NEGATIVE (NEGATIVE); Cannabinoid Screen, Urine NEGATIVE (NEGATIVE); Cocaine Screen, Urine NEGATIVE (NEGATIVE); Opiate Scree,Urine NEGATIVE (NEGATIVE); Phencyclidine Screen, Urine NEGATIVE (NEGATIVE)
== END 2023-03-24 17:02 | disposition home or self-care (01) ==
LOC: ER 13:40 → EDUNIT# 13:40 → EDBD 13:40 → ER 17:00
DX: G40.909 Epilepsy, unspecified, not intractable, without status epilepticus (principal); F41.9 Anxiety disorder, unspecified; J45.909 Unspecified asthma, uncomplicated; J44.9 Chronic obstructive pulmonary disease, unspecified; Z86.73 Personal history of transient ischemic attack (TIA), and cerebral infarction without residual deficits; Z90.710 Acquired absence of both cervix and uterus; Z98.890 Other specified postprocedural states
CPT/HCPCS: 36415; 70450; 80053; 80307; 81001; 85025; 93005

== ENCOUNTER 2023-04-29 07:00 | Emergency (ER) | payer MEDICAID ==
[~2023-04-29] VITALS: Ht 170.2 cm; Wt 92.1 kg
[2023-04-29 08:36] VITALS: BP 125/83; PULSE 78; RESP 16; TEMP 97.5; O2SAT 97
[2023-04-29] MEDS ORDERED: HYDR-4902 PO ×2 (09:28→09:31)
== END 2023-04-29 09:35 | disposition home or self-care (01) ==
LOC: ER 07:00
DX: S46.911A Strain of unspecified muscle, fascia and tendon at shoulder and upper arm level, right arm, initial encounter (principal); S53.401A Unspecified sprain of right elbow, initial encounter; E78.5 Hyperlipidemia, unspecified; F41.9 Anxiety disorder, unspecified; J45.909 Unspecified asthma, uncomplicated; Z88.0 Allergy status to penicillin; Z88.8 Allergy status to other drugs, medicaments and biological substances; Z79.899 Other long term (current) drug therapy; Z79.84 Long term (current) use of oral hypoglycemic drugs; Z79.82 Long term (current) use of aspirin; Z86.73 Personal history of transient ischemic attack (TIA), and cerebral infarction without residual deficits; Z90.710 Acquired absence of both cervix and uterus; Z98.890 Other specified postprocedural states; W01.0XXA Fall on same level from slipping, tripping and stumbling without subsequent striking against object, initial encounter; Y93.89 Activity, other specified; Y92.89 Other specified places as the place of occurrence of the external cause; Y99.8 Other external cause status
CPT/HCPCS: 73030; 73080

== ENCOUNTER 2023-05-12 07:33 | Emergency (ER) | payer MEDICAID ==
[~2023-05-12] VITALS: Ht 170.2 cm; Wt 92.0 kg
[~2023-05-12 07:33] MED LIST changes: +HYDR-4902 PO
[2023-05-12 07:56] VITALS: BP 119/75; PULSE 66; RESP 14; TEMP 98.3; O2SAT 98
[2023-05-12] MEDS ORDERED: HYDROcodone-ACET 5/325MG TAB PO ONE (08:15)
[2023-05-12] MEDS ORDERED: METH-1182 PO (08:18)
== END 2023-05-12 08:22 | disposition home or self-care (01) ==
LOC: ER 07:33
DX: S46.811A Strain of other muscles, fascia and tendons at shoulder and upper arm level, right arm, initial encounter (principal); F41.9 Anxiety disorder, unspecified; J45.909 Unspecified asthma, uncomplicated; J44.9 Chronic obstructive pulmonary disease, unspecified; E11.9 Type 2 diabetes mellitus without complications; E78.5 Hyperlipidemia, unspecified; Z86.73 Personal history of transient ischemic attack (TIA), and cerebral infarction without residual deficits; Z86.2 Personal history of diseases of the blood and blood-forming organs and certain disorders involving the immune mechanism; Z90.710 Acquired absence of both cervix and uterus; Z98.890 Other specified postprocedural states; Z88.0 Allergy status to penicillin; Z88.8 Allergy status to other drugs, medicaments and biological substances; Z79.1 Long term (current) use of non-steroidal anti-inflammatories (NSAID); Z79.82 Long term (current) use of aspirin; Z79.84 Long term (current) use of oral hypoglycemic drugs; Z79.899 Other long term (current) drug therapy; W18.39XA Other fall on same level, initial encounter; Y93.89 Activity, other specified; Y92.89 Other specified places as the place of occurrence of the external cause; Y99.8 Other external cause status

== ENCOUNTER 2023-05-28 14:26 | Emergency (ER) | payer MEDICAID ==
[~2023-05-28] VITALS: Ht 170.2 cm; Wt 110.0 kg
[~2023-05-28 14:26] MED LIST changes: +METH-1182 PO
[2023-05-28 15:57] VITALS: BP 114/72; PULSE 94; RESP 22; O2SAT 96
== END 2023-05-28 16:12 | disposition left against medical advice (07) ==
LOC: ER 14:26 → EDBD 14:26 → ER 16:12
DX: G40.909 Epilepsy, unspecified, not intractable, without status epilepticus (principal); Z88.0 Allergy status to penicillin; Z88.8 Allergy status to other drugs, medicaments and biological substances; Z79.899 Other long term (current) drug therapy; Z79.82 Long term (current) use of aspirin; Z53.21 Procedure and treatment not carried out due to patient leaving prior to being seen by health care provider

== ENCOUNTER 2023-06-03 10:57 | Emergency (ER) | payer MEDICAID ==
[~2023-06-03] VITALS: Ht 170.2 cm; Wt 92.0 kg
[2023-06-03 11:10] VITALS: BP 110/69; PULSE 92; RESP 18; O2SAT 96
== END 2023-06-03 13:30 | disposition left against medical advice (07) ==
LOC: ER 10:57
DX: M54.9 Dorsalgia, unspecified (principal); Z53.21 Procedure and treatment not carried out due to patient leaving prior to being seen by health care provider; W01.0XXA Fall on same level from slipping, tripping and stumbling without subsequent striking against object, initial encounter; Y93.89 Activity, other specified; Y92.89 Other specified places as the place of occurrence of the external cause; Y99.8 Other external cause status

== ENCOUNTER 2023-07-23 17:58 | Emergency (ER) | payer MEDICAID ==
[2023-07-23 18:03] VITALS: PULSE 69
== END 2023-07-23 18:32 | disposition left against medical advice (07) ==
LOC: EDBD 17:58 → EDUNIT# 17:58 → ER 17:58
DX: R07.89 Other chest pain (principal); Z53.21 Procedure and treatment not carried out due to patient leaving prior to being seen by health care provider
CPT/HCPCS: 93005

== ENCOUNTER 2023-08-31 09:54 | Emergency (ER) | payer MEDICAID ==
[~2023-08-31] VITALS: Ht 170.2 cm; Wt 97.2 kg
[2023-08-31 10:31] VITALS: BP 91/56; RESP 18; O2SAT 99
[2023-08-31 10:38] VITALS: PULSE 74
[2023-08-31 12:39] LABS: Urine Bacteria NONE SEEN /hpf (None Seen); Urine Blood Negative /uL (Negative); Urine Clarity Clear (Clear); Urine Color Yellow (Yellow); Urine Mucus FEW (None Seen); Urine Protein, UAD Negative (Negative); Urine Specific Gravity 1.022 (1.001-1.035); Urine Urobilinogen Normal (Negative); Urine WBC <1 /hpf (0 - 5)
[2023-08-31 13:41] LABS: Basophils # (auto) 0.1 10 ^3/uL (0-0.2); Eosinophils # (auto) 0.2 10 ^3/uL (0-0.8); Eosinophils % (auto) 2.9 % (0.0-7.0); Hematocrit 39.1 % (36.0-46.0); Hemoglobin 12.8 g/dL (12.2-16.2); Lymphocytes # (auto) 1.7 10 ^3/uL (0.4-5.4); Lymphocytes % (auto) 30.2 % (10.0-50.0); Mean Corpuscular Hemoglobin 29.4 pg (28.0-32.0); Mean Corpuscular Hgb Conc. 32.7 g/dL (32.0-36.0); Mean Corpuscular Volume 90.1 fL (80.0-100.0); Monocytes # (auto) 0.4 10 ^3/uL (0-1.3); Monocytes % (auto) 7.1 % (0.0-12.0); Neutrophils # (auto) 3.3 10 ^3/uL (1.6-8.6); Neutrophils % (auto) 58.8 % (37.0-80.0); Nucleated Red Blood Cells % 0.1 %; Red Blood Cells 4.33 10^6/uL (4.0-5.20); White Blood Cell 5.6 10^3/uL (4.4-10.8)
[2023-08-31 14:07] LABS: Alanine Aminotransferase 16 U/L (7-40); Albumin 4.7 g/dL (3.2-4.8); Alkaline Phosphatase 133 U/L (46-116); Anion Gap 7 (5-15); Aspartate Aminotransferase 14 U/L (13-40); BUN/Creatinine Ratio 13.9 (10.0-20.0); Blood Urea Nitrogen 11 mg/dL (9-23); CRP High Sensitivity 0.31 mg/dL (<1.0); Calcium 9.4 mg/dL (8.5-10.1); Carbon Dioxide 27 mmol/L (20-30); Chloride 106 mmol/L (98-107); Glucose 90 mg/dL (74-106); Potassium 4.6 mmol/L (3.5-5.1); Sodium 140 mmol/L (136-145)
[2023-08-31 14:08] LABS: Bilirubin, Total 0.2 mg/dL (0.2-1.0); Total Protein 7.1 g/dL (5.7-8.2)
[2023-08-31 14:18] LABS: Erythrocyte Sedimentation Rate 15 mm/hr (0-20)
[2023-08-31] MEDS ORDERED: HYDROcodone-ACET 5/325MG TAB PO ONE (15:00)
[2023-08-31] MEDS ORDERED: KETOROLAC TROMETH 60MG/2ML VIAL IM ONE (18:30)
== END 2023-08-31 19:12 | disposition left against medical advice (07) ==
LOC: ER 09:54
DX: M54.59 Other low back pain (principal); M79.601 Pain in right arm; E11.9 Type 2 diabetes mellitus without complications; E78.5 Hyperlipidemia, unspecified; J44.9 Chronic obstructive pulmonary disease, unspecified; Z86.73 Personal history of transient ischemic attack (TIA), and cerebral infarction without residual deficits; Z98.890 Other specified postprocedural states; Z88.8 Allergy status to other drugs, medicaments and biological substances; Z79.899 Other long term (current) drug therapy
CPT/HCPCS: 36415; 80053; 81001; 84484; 85025; 85652; 86141; 93005; 93971

== ENCOUNTER 2024-04-23 12:49 | Emergency (ER) | payer MEDICAID ==
[~2024-04-23] VITALS: Ht 180.3 cm; Wt 92.0 kg
[~2024-04-23 12:49] MED LIST changes: -ASPI325T4 PO; +ASPI325T6 PO
[2024-04-23 13:35] LABS: Basophils # (auto) 0 10 ^3/uL (0-0.2); Basophils % (auto) 0.6 % (0.0-2.0); Eosinophils # (auto) 0.1 10 ^3/uL (0-0.8); Eosinophils % (auto) 1.6 % (0.0-7.0); Hematocrit 34.8 % (36.0-46.0); Hemoglobin 11.3 g/dL (12.2-16.2); Lymphocytes # (auto) 1.7 10 ^3/uL (0.4-5.4); Lymphocytes % (auto) 27.5 % (10.0-50.0); Mean Corpuscular Hemoglobin 28.9 pg (28.0-32.0); Mean Corpuscular Hgb Conc. 32.6 g/dL (32.0-36.0); Mean Corpuscular Volume 88.5 fL (80.0-100.0); Monocytes # (auto) 0.5 10 ^3/uL (0-1.3); Monocytes % (auto) 8.3 % (0.0-12.0); Neutrophils # (auto) 3.9 10 ^3/uL (1.6-8.6); Platelet Count (auto) 296 10^3/uL (140-450); Red Blood Cells 3.93 10^6/uL (4.0-5.20); Red Cell Distribution Width 15.5 % (11.8-14.3); White Blood Cell 6.3 10^3/uL (4.4-10.8)
[2024-04-23 13:40] LABS: Chloride 110 mmol/L (98-107); Potassium 3.8 mmol/L (3.5-5.1); Sodium 140 mmol/L (136-145)
[2024-04-23 13:41] LABS: Anion Gap 2 (5-15); Calcium 9.2 mg/dL (8.7-10.4); Carbon Dioxide 28 mmol/L (20-30)
[2024-04-23 13:46] LABS: Blood Urea Nitrogen 8 mg/dL (9-23); Glucose 89 mg/dL (74-106)
[2024-04-23] MEDS: levETIRAcetam 1000 mg/100ml 100 ML IV ONE (13:53)
[2024-04-23 14:11] LABS: Urine Bacteria None Seen /hpf (None Seen)
[2024-04-23 14:17] LABS: Urine Blood Negative /uL (Negative); Urine Clarity Clear (Clear); Urine Color Colorless (Yellow); Urine Protein, UAD Negative (Negative); Urine Specific Gravity 1.007 (1.001-1.035); Urine Urobilinogen Normal (Negative); Urine WBC 1 /hpf (0 - 5); Urine pH 6.5 (5.0-9.0)
[2024-04-23 14:33] LABS: Amphetamine Screen, Urine Neg (NEGATIVE); Barbiturate Scree,Urine Neg (NEGATIVE); Benzodiazephine Screen, Urine Pos (NEGATIVE); Cannabinoid Screen, Urine Neg (NEGATIVE); Cocaine Screen, Urine Neg (NEGATIVE); Opiate Scree,Urine Neg (NEGATIVE); Phencyclidine Screen, Urine Neg (NEGATIVE)
[2024-04-23 14:55] VITALS: BP 108/63; PULSE 75; RESP 16; TEMP 98.2; O2SAT 94
== END 2024-04-23 15:03 | disposition home or self-care (01) ==
LOC: EDBD 12:49 → ER 12:49
DX: G40.909 Epilepsy, unspecified, not intractable, without status epilepticus (principal); E11.9 Type 2 diabetes mellitus without complications; E78.5 Hyperlipidemia, unspecified; F41.9 Anxiety disorder, unspecified; J44.9 Chronic obstructive pulmonary disease, unspecified; Z86.2 Personal history of diseases of the blood and blood-forming organs and certain disorders involving the immune mechanism; Z98.890 Other specified postprocedural states
CPT/HCPCS: 36415; 80048; 80307; 81001; 85025; 93005

== ENCOUNTER 2024-05-02 13:56 | Emergency (ER) | payer MEDICAID ==
[~2024-05-02] VITALS: Ht 175.3 cm; Wt 75.0 kg
[2024-05-02 14:17] VITALS: BP 102/70; PULSE 82; RESP 17; O2SAT 96
[2024-05-02 16:23] LABS: Alanine Aminotransferase 13 U/L (7-40); Albumin 4.5 g/dL (3.2-4.8); Alkaline Phosphatase 99 U/L (46-116); Anion Gap 6 (5-15); Aspartate Aminotransferase 12 U/L (13-40); BUN/Creatinine Ratio 9.9 (10.0-20.0); Blood Urea Nitrogen 9 mg/dL (9-23); CRP High Sensitivity 0.17 mg/dL (<1.0); Calcium 9.5 mg/dL (8.7-10.4); Carbon Dioxide 25 mmol/L (20-30); Chloride 110 mmol/L (98-107); Glucose 89 mg/dL (74-106); Potassium 3.8 mmol/L (3.5-5.1); Sodium 141 mmol/L (136-145); Total Protein 7.1 g/dL (5.7-8.2)
[2024-05-02 16:24] LABS: Bilirubin, Total 0.4 mg/dL (0.2-1.0)
[2024-05-02 16:26] LABS: Basophils # (auto) 0 10 ^3/uL (0-0.2); Basophils % (auto) 0.5 % (0.0-2.0); Eosinophils # (auto) 0.2 10 ^3/uL (0-0.8); Eosinophils % (auto) 3.1 % (0.0-7.0); Hematocrit 34.9 % (36.0-46.0); Hemoglobin 11.7 g/dL (12.2-16.2); Lymphocytes # (auto) 1.6 10 ^3/uL (0.4-5.4); Lymphocytes % (auto) 22.4 % (10.0-50.0); Mean Corpuscular Hgb Conc. 33.6 g/dL (32.0-36.0); Mean Corpuscular Volume 89.2 fL (80.0-100.0); Monocytes # (auto) 0.6 10 ^3/uL (0-1.3); Monocytes % (auto) 8.7 % (0.0-12.0); Neutrophils # (auto) 4.5 10 ^3/uL (1.6-8.6); Neutrophils % (auto) 65.3 % (37.0-80.0); Nucleated Red Blood Cells % 0.1 %; Platelet Count (auto) 306 10^3/uL (140-450); Red Blood Cells 3.91 10^6/uL (4.0-5.20); Red Cell Distribution Width 15.9 % (11.8-14.3)
[2024-05-02 16:40] LABS: Erythrocyte Sedimentation Rate 15 mm/hr (0-20)
[2024-05-02] MEDS ORDERED: CLIN1CAP70 PO (19:26)
== END 2024-05-02 19:26 | disposition left against medical advice (07) ==
LOC: ER 13:56
DX: S89.82XA Other specified injuries of left lower leg, initial encounter (principal); J45.909 Unspecified asthma, uncomplicated; E11.9 Type 2 diabetes mellitus without complications; Z86.73 Personal history of transient ischemic attack (TIA), and cerebral infarction without residual deficits; Z90.710 Acquired absence of both cervix and uterus; Z98.890 Other specified postprocedural states; X58.XXXA Exposure to other specified factors, initial encounter; Y93.89 Activity, other specified; Y92.89 Other specified places as the place of occurrence of the external cause; Y99.8 Other external cause status
CPT/HCPCS: 36415; 80053; 82962; 83605; 83880; 85025; 85652; 86141; 93971

== ENCOUNTER 2024-07-03 13:26 | Emergency (ER) | payer MEDICAID ==
[~2024-07-03] VITALS: Ht 170.2 cm; Wt 100.0 kg
[~2024-07-03 13:26] MED LIST changes: +CLIN1CAP70 PO
[2024-07-03 13:59] VITALS: BP 105/63; PULSE 89; RESP 17; TEMP 98; O2SAT 98
[2024-07-03] MEDS ORDERED: IBUP-1455 PO (15:47)
== END 2024-07-03 16:15 | disposition home or self-care (01) ==
LOC: ER 13:26
DX: S93.402A Sprain of unspecified ligament of left ankle, initial encounter (principal); E11.9 Type 2 diabetes mellitus without complications; F41.9 Anxiety disorder, unspecified; J44.89 Other specified chronic obstructive pulmonary disease; Z79.1 Long term (current) use of non-steroidal anti-inflammatories (NSAID); Z79.82 Long term (current) use of aspirin; Z79.890 Hormone replacement therapy; Z79.899 Other long term (current) drug therapy; Z86.73 Personal history of transient ischemic attack (TIA), and cerebral infarction without residual deficits; Z88.0 Allergy status to penicillin; Z90.710 Acquired absence of both cervix and uterus; W22.03XA Walked into furniture, initial encounter; X50.1XXA Overexertion from prolonged static or awkward postures, initial encounter; Y93.89 Activity, other specified; Y92.89 Other specified places as the place of occurrence of the external cause; Y99.8 Other external cause status
CPT/HCPCS: 73610; 73630

== ENCOUNTER 2025-01-09 13:00 | Emergency (ER) | payer MEDICAID ==
[~2025-01-09] VITALS: Ht 170.2 cm; Wt 86.0 kg
[2025-01-09 13:00] VITALS: BP 127/72; PULSE 74; RESP 18; TEMP 99; O2SAT 100
[~2025-01-09 13:00] MED LIST changes: +IBUP-1455 PO
--- NOTE | 2025-01-09 13:33 | ED.PDOC ---
HPI (NEURO) HPI Comments 59 y/o F, BIBA, with PMHx of seizures, anemia, anxiety, asthma, CVA, COPD, DM, and HLD presents to the ED for CC of s/p seizure. EMS reports, patient is coming from home where she had a seizure. Patient reports, that she had argument with which triggered seizure; patient endorses falling onto floor and has no other recollection of events. EMS comments, patient had another seizure in route to ED lasting about 40 seconds; patient given Versed IM. Patient current takes Aptiom for focal seizure, no other medications reported. Patient denies cervical injury, back pain, headache, nausea, vomiting, or dizziness. No other symptoms or modifying factors present at this time. Chief Complaint: Seizure Time Seen by MD: 13:15 Primary Care Provider: BETSY Figueredo Notes: Nurses Notes, Cab Driver Notes, Medications, Allergies Information Source: Patient, Emergency Med Personnel Mode of Arrival: EMS Severity: Moderate Headache Severity: None Timing: Minutes Duration: Since onset Prehospital treatment: None Onset: At rest Circumstances: Spontaneous Symptoms: Syncope Before: Normal During: Awake, LOC After: Normal Mentation History of: Seizure Disorder Modifying factors: Nothing Associated Signs and Symptoms: None Past Medical History PAST MEDICAL HISTORY: Anemia, Anxiety, Asthma, COPD, CVA, DM, High Lipids, Seizures, Thyroid Surgical History: , Hysterectomy BINDING DYER History: No Pertinent BINDING DYER History Family History Family History: Reviewed,noncontributory to illness, Family hx of DM Social History Smoker: Non-Smoker Alcohol: Denies ETOH Use Drugs: Denies Drug Use Lives In: Home Constitutional: denies: chills, diaphoresis, fatigue, fever, malaise, sweats, weakness, others EENTM: denies: blurred vision, double vision, ear bleeding, ear discharge, ear drainage, ear pain, ear ringing, eye pain, eye redness, hearing loss, mouth pain, mouth swelling, nasal discharge, nose bleeding, nose congestion, nose pain, photophobia, tearing, throat pain, throat swelling, voice changes, others Respiratory: denies: cough, hemoptysis, orthopnea, SOB at rest, shortness of breath, SOB with excertion, stridor, wheezing, others Cardiovascular: denies: chest pain, dizzy spells, diaphoresis, Dyspnea on exertion, edema, irregular heart beat, left arm pain, lightheadedness, palpitations, PND, syncope, others Gastrointestinal: denies: abdomen distended, abdominal pain, blood streaked bowels, constipated, diarrhea, dysphagia, difficulty swallowing, hematemesis, melena, nausea, poor appetite, poor fluid intake, rectal bleeding, rectal pain, vomiting, others Genitourinary: denies: abnormal vagina bleeding, burning, dyspareunia, dysuria, flank pain, frequency, hematuria, incontinence, pain, , vagina discharge, urgency, others Neurological: denies: dizziness, fainting, headache, left sided numbness, left sided weakness, numbness, paresthesia, pre-existing deficit, right sided numbness, right sided weakness, seizure, speech problems, tingling, tremors, weakness, others Musculoskeletal: denies: back pain, gout, joint pain, joint swelling, muscle pain, muscle stiffness, neck pain, others Integumetry: denies: bruises, change in color, change in hair/nails, dryness, laceration, lesions, lumps, rash, wounds, others Allergic/Immunocompromised: denies: Difficulty Healing, Frequent Infections, Hives, Itching, others Hematologic/Lymphatic: denies: anemia, blood clots, easy bleeding, easy bruising, swollen glands, others Endocrine: denies: excessive hunger, excessive sweating, excessive thirst, excessive urination, flushing, intolerance to cold, intolerance to heat, unexplained weight gain, unexplained weight loss, others Psychiatric: denies: anxiety, bipolar disorder, depression, hopeless, panic disorder, schizophrenia, sleepless, suicidal, others All Other Systems: Reviewed and Negative Physical Exam General Appearance: No Apparent Distress, Normal HEENT: Normal ENT Inspection, Pharynx Normal, TMs Normal Neck: Full Range of Motion, Non-Tender, Normal, Normal Inspection Respiratory: Chest Non-Tender, Lungs Clear, No Accessory Muscle Use, No Respiratory Distress, Normal Breath Sounds Cardiovascular: No Edema, No Murmur, No Gallop, Normal Peripheral Pulses, Regular Rate/Rhythm Breast Exam: Deferred Gastrointestinal: No Organomegaly, Non Tender, No Pulsatile Mass, Normal Bowel Sounds, Soft Genitalia: Deferred Pelvic: Deferred Rectal: Deferred Extremities: No calf tenderness, Normal capillary refill, Normal inspection, Normal range of motion, Non-tender, No pedal edema Musculoskeletal : Apperance: Normal Neurologic: Alert, solid waste landfill technician II-XII nml as Tested, No Motor Deficits, Normal Affect, Normal Mood, No Sensory Deficits Cerebellar Function: Normal Reflexes: Normal Skin: Dry, Normal Color, Warm Lymphatic: No Adenopathy Was a procedure done? Was a procedure done?: No Differential Diagnosis (SZ) Seizure: Psychogenic Seizure X-Ray, Labs, Meds, VS Lab Test 01/09/25 15:13 01/09/25 13:43 Range/Units Troponin I High Sensitivity Pending < 3 L </=34 ng/L White Blood Count 6.4 4.4-10.8 10^3/uL Red Blood Count 4.07 4.0-5.20 10^6/uL Hemoglobin 12.0 L 12.2-16.2 g/dL Hematocrit 35.8 L 36.0-46.0 % Mean Corpuscular Volume 87.8 80.0-100.0 fL Mean Corpuscular Hemoglobin 29.6 28.0-32.0 pg Mean Corpuscular Hemoglobin Concent 33.7 32.0-36.0 g/dL Red Cell Distribution Width 14.9 H 11.8-14.3 % Platelet Count 275 140-450 10^3/uL Mean Platelet Volume 7.1 6.9-10.8 fL Neutrophils (%) (Auto) 74.6 37.0-80.0 % Lymphocytes (%) (Auto) 17.1 10.0-50.0 % Monocytes (%) (Auto) 7.6 0.0-12.0 % Eosinophils (%) (Auto) 0.4 0.0-7.0 % Basophils (%) (Auto) 0.3 0.0-2.0 % Neutrophils # (Auto) 4.8 1.6-8.6 10 ^3/uL Lymphocytes # (Auto) 1.1 0.4-5.4 10 ^3/uL Monocytes # (Auto) 0.5 0-1.3 10 ^3/uL Eosinophils # (Auto) 0 0-0.8 10 ^3/uL Basophils # (Auto) 0 0-0.2 10 ^3/uL Nucleated Red Blood Cells 0.2 % Sodium Level 142 136-145 mmol/L Potassium Level 3.9 3.5-5.1 mmol/L Chloride Level 108 H 98-107 mmol/L Carbon Dioxide Level 23 20-31 mmol/L Anion Gap 11 5-15 Blood Urea Nitrogen 13 9-23 mg/dL Creatinine 1.13 H 0.550-1.02 mg/dL Glomerular Filtration Rate Calc 56 >90 mL/min BUN/Creatinine Ratio 11.5 10.0-20.0 Serum Glucose 98 74-106 mg/dL Calcium Level 9.5 8.7-10.4 mg/dL [place] [address] Ph: [phone] DIAGNOSTIC IMAGING Diagnostic Imaging Report : [id number] Signed PATIENT: LUDY ARMSTRONG ACCT: [id number] UNIT: [id number] : 1965 LOC: ER ROOM / BED: / AGE / SEX: 59 / F ADM STATUS: REG ER SERVICE 1315 ORDERING PHYSICIAN: RANJAN LOMBARDO MD PROCEDURE(s): CXRP - CHEST PORTABLE REASON: syncope ORDER NUMBER(s): [id number], ACCESSION NUMBER(s): [id number] EXAM: XY CHEST PORTABLE Indication: syncope Technique: Single frontal view of the chest was obtained Comparison: XY CHEST PORTABLE on DOS: 03/19/23, XY CHEST XRAY 1 VIEW on DOS: 03/17/23, XY CHEST PORTABLE on DOS: 12/17/22, CXRP on DOS: 03/17/22, CHEST PORTABLE on DOS: 03/17/22 FINDINGS: Lines and Tubes: Cardiac pacemaker projects over left chest wall. Lungs: No focal consolidation. Pleura: No effusion. No pneumothorax. Cardiomediastinal contours: Unremarkable Bones: No acute osseous abnormality. IMPRESSION: No acute cardiopulmonary disease. ATED BY: KAE GREENE MD DICTATED DATE/TIME: 01/09/25 135 SIGNED BY: KAE GREENE MD SIGNED DATE/TIME: 01/09/25 1356 CC: [address] [address] Ph: [phone] DIAGNOSTIC IMAGING Diagnostic Imaging Report : [id number] Signed PATIENT: LUDY ARMSTRONG ACCT: [id number] UNIT: [id number] : 1965 LOC: ER ROOM / BED: / AGE / SEX: 59 / F ADM STATUS: REG ER SERVICE 1315 ORDERING PHYSICIAN: RANJAN LOMBARDO MD PROCEDURE(s): HWOCT - HEAD WITHOUT CONTRAST REASON: syncope ORDER NUMBER(s): [id number], ACCESSION NUMBER(s): [id number] EXAM: CT HEAD WITHOUT CONTRAST INDICATION: syncope TECHNIQUE: CT of the head without intravenous contrast. Radiation Dose : 1. Head: CT Dose: CTDI volume is 58 mGy. Dose-length product is 1021 mGy*cm The dose indicators for CT are the volume Computed Tomography (CT) Dose Index (CTDIvol) and the Dose Length Product (DLP), and are measured in units of mGy and mGy-cm, respectively. These indicators are not patient dose, but values generated from the CT scanner acquisition factors. The report includes radiation exposure data for exposures received during this examination. COMPARISON: CT HEAD WITHOUT CONTRAST on DOS: 03/24/23, CT HEAD WITHOUT CONTRAST on DOS: 12/17/22, HEAD WITHOUT CONTRAST on DOS: 03/17/22 FINDINGS: There is no evidence of acute intracranial hemorrhage, extra-axial collection, mass effect, midline shift, herniation or hydrocephalus. The ventricles, sulci and cisterns are age appropriate. The thompson-white differentiation is intact. The visualized paranasal sinuses and mastoid air cells are clear. Left frontal craniotomy. IMPRESSION: No acute intracranial abnormality. Radiation optimization: All CT scans at this facility use at least one of these dose optimization techniques: automated exposure control mA and/or kV adjustment per patient size (includes targeted exams where dose is matched to clinical indication) or iterative reconstruction. ATED BY: FORREST VAZQUEZ MD DICTATED DATE/TIME: 01/09/251338 SIGNED BY: FORREST VAZQUEZ MD SIGNED DATE/TIME: 01/09/251338 CC: Time of 1ST Reevaluation: 13:45 Reevaluation 1ST: Unchanged Patient Education/Counseling: Diagnosis, Treatment Family Education/Counseling: No Family Present Departure 1 Departure Time of Disposition: 15:29 (Patient presented with syncope today and should be admitted. Data: 1. I ordered and reviewed the result of at least 3 labs including a CBC, BMP, and troponin. 2. I independently interpreted the following tests: EKG which shows a sinus tachycardia and a chest x-ray which shows benign chest and a CT head which shows benign brain.Risk:This patient has a high risk of morbidity due to further diagnostic testing or treatment and may suffer from an acute cardiac, neurologic, or infectious disorder. Rationale: Patient should be admitted to the hospital for further management.) Impression: Primary Impression: Syncope and collapse Additional Impression: Generalized weakness Disposition: ADMITTED INPATIENT Admit to: Med Surg Condition: Serious Critical Care Note Critical Care Time?: Yes Critical care comment: Syncope Authorized and Performed by: Ranjan Lombardo MD Total critical care time: Approximately 38 minutes Due to a high probability of clinically significant, life threatening deterioration, the patient required my highest level of preparedness to intervene emergently and I personally spent this critical care time directly and personally managing the patient. This critical care time included obtaining a history; examining the patient; pulse oximetry; ordering and review of studies; arranging urgent treatment with development of a management plan; evaluation of patient's response to treatment; frequent reassessment; and, discussions with other providers. This critical care time was performed to assess and manage the high probability of imminent, life-threatening deterioration that could result in multi-organ failure. It was exclusive of separately billable procedures and treating other patients and teaching time. Please see my other sections and the rest of the note for further information on patient assessment and treatment. Stability Stability form required: No Heart Score Heart Score: Heart Score Response (Comments) Value History N/A 0 EKG N/A 0 Age N/A 0 Risk Factors N/A 0 Troponin N/A 0 Total 0 I personally scribed for RANJAN LOMBARDO MD ([email or web address]) on 01/09/25 at 13:33. Electronically submitted by Kim Baptiste ([email or web address]). I personally scribed for RANJAN LOMBARDO MD ([email or web address]) on 01/09/25 at 14:10. El ectronically submitted by Kim Baptiste ([email or web address]). RANJAN LOMBARDO MD January 09, 2025 13:33
--- NOTE | 2025-01-09 13:41 | DVH ---
EXAM: CT HEAD WITHOUT CONTRAST INDICATION: syncope TECHNIQUE: CT of the head without intravenous contrast. Radiation Dose : 1. Head: CT Dose: CTDI volume is 58 mGy. Dose-length product is 1021 mGy*cm The dose indicators for CT are the volume Computed Tomography (CT) Dose Index (CTDIvol) and the Dose Length Product (DLP), and are measured in units of mGy and mGy-cm, respectively. These indicators are not patient dose, but values generated from the CT scanner acquisition factors. The report includes radiation exposure data for exposures received during this examination. COMPARISON: CT HEAD WITHOUT CONTRAST on DOS: 03/24/23, CT HEAD WITHOUT CONTRAST on DOS: 12/17/22, HEAD WITHOUT CONTRAST on DOS: 03/17/22 FINDINGS: There is no evidence of acute intracranial hemorrhage, extra-axial collection, mass effect, midline s hift, herniation or hydrocephalus. The ventricles, sulci and cisterns are age appropriate. The thompson-white differentiation is intact. The visualized paranasal sinuses and mastoid air cells are clear. Left frontal craniotomy. IMPRESSION: No acute intracranial abnormality. Radiation optimization: All CT scans at this facility use at least one of these dose optimization harris hniques: automated exposure control mA and/or kV adjustment per patient size (includes targeted exam s where dose is matched to clinical indication) or iterative reconstruction.
[2025-01-09 13:57] LABS: Basophils # (auto) 0 10 ^3/uL (0-0.2); Basophils % (auto) 0.3 % (0.0-2.0); Eosinophils # (auto) 0 10 ^3/uL (0-0.8); Eosinophils % (auto) 0.4 % (0.0-7.0); Hematocrit 35.8 % (36.0-46.0); Lymphocytes # (auto) 1.1 10 ^3/uL (0.4-5.4); Lymphocytes % (auto) 17.1 % (10.0-50.0); Mean Corpuscular Hemoglobin 29.6 pg (28.0-32.0); Mean Corpuscular Hgb Conc. 33.7 g/dL (32.0-36.0); Mean Corpuscular Volume 87.8 fL (80.0-100.0); Monocytes # (auto) 0.5 10 ^3/uL (0-1.3); Monocytes % (auto) 7.6 % (0.0-12.0); Neutrophils # (auto) 4.8 10 ^3/uL (1.6-8.6); Neutrophils % (auto) 74.6 % (37.0-80.0); Nucleated Red Blood Cells % 0.2 %; Platelet Count (auto) 275 10^3/uL (140-450); Red Blood Cells 4.07 10^6/uL (4.0-5.20); Red Cell Distribution Width 14.9 % (11.8-14.3); White Blood Cell 6.4 10^3/uL (4.4-10.8)
--- NOTE | 2025-01-09 13:58 | DVH ---
EXAM: XY CHEST PORTABLE Indication: syncope Technique: Single frontal view of the chest was obtained Comparison: XY CHEST PORTABLE on DOS: 03/19/23, XY CHEST XRAY 1 VIEW on DOS: 03/17/23, XY CHEST PORTABL E on DOS: 12/17/22, CXRP on DOS: 03/17/22, CHEST PORTABLE on DOS: 03/17/22 FINDINGS: Lines and Tubes: Cardiac pacemaker projects over left chest wall. Lungs: No focal consolidation. Pleura: No effusion. No pneumothorax. Cardiomediastinal contours: Unremarkable Bones: No acute osseous abnormality. IMPRESSION: No acute cardiopulmonary disease.
[2025-01-09 14:06] LABS: Potassium 3.9 mmol/L (3.5-5.1); Sodium 142 mmol/L (136-145)
[2025-01-09 14:07] LABS: Anion Gap 11 (5-15); Calcium 9.5 mg/dL (8.7-10.4); Carbon Dioxide 23 mmol/L (20-31)
[2025-01-09 14:12] LABS: BUN/Creatinine Ratio 11.5 (10.0-20.0); Blood Urea Nitrogen 13 mg/dL (9-23); Chloride 108 mmol/L (98-107); Glucose 98 mg/dL (74-106)
--- NOTE | 2025-01-09 16:31 | DVHHP2 ---
Review of Systems Allergies: Coded Allergies: Valproic Acid (Verified Allergy, Mild, 10/23/19) Haloperidol (Verified Allergy, Unknown, 10/23/19) Penicillins (Verified Allergy, Unknown, 10/23/19) Labs/Xrays Labs Test 01/09/25 15:13 01/09/25 13:43 Range/Units Troponin I High Sensitivity < 3 L </=34 ng/L White Blood Count 6.4 4.4-10.8 10^3/uL Red Blood Count 4.07 4.0-5.20 10^6/uL Hemoglobin 12.0 L 12.2-16.2 g/dL Hematocrit 35.8 L 36.0-46.0 % Mean Corpuscular Volume 87.8 80.0-100.0 fL Mean Corpuscular Hemoglobin 29.6 28.0-32.0 pg Mean Corpuscular Hemoglobin Concent 33.7 32.0-36.0 g/dL Red Cell Distribution Width 14.9 H 11.8-14.3 % Platelet Count 275 140-450 10^3/uL Mean Platelet Volume 7.1 6.9-10.8 fL Neutrophils (%) (Auto) 74.6 37.0-80.0 % Lymphocytes (%) (Auto) 17.1 10.0-50.0 % Monocytes (%) (Auto) 7.6 0.0-12.0 % Eosinophils (%) (Auto) 0.4 0.0-7.0 % Basophils (%) (Auto) 0.3 0.0-2.0 % Neutrophils # (Auto) 4.8 1.6-8.6 10 ^3/uL Lymphocytes # (Auto) 1.1 0.4-5.4 10 ^3/uL Monocytes # (Auto) 0.5 0-1.3 10 ^3/uL Eosinophils # (Auto) 0 0-0.8 10 ^3/uL Basophils # (Auto) 0 0-0.2 10 ^3/uL Nucleated Red Blood Cells 0.2 % Sodium Level 142 136-145 mmol/L Potassium Level 3.9 3.5-5.1 mmol/L Chloride Level 108 H 98-107 mmol/L Carbon Dioxide Level 23 20-31 mmol/L Anion Gap 11 5-15 Blood Urea Nitrogen 13 9-23 mg/dL Creatinine 1.13 H 0.550-1.02 mg/dL Glomerular Filtration Rate Calc 56 >90 mL/min BUN/Creatinine Ratio 11.5 10.0-20.0 Serum Glucose 98 74-106 mg/dL Calcium Level 9.5 8.7-10.4 mg/dL Assessment/Plan Assessment/Plan acute syncope ct brain ordered echo fu results fall precautions ordered seizure precautions trop negative x 2 cont keppra consider neurology consult if with seizures ordered ivf for now acute breakthrough seizures CT the brain is negative will resume home medication ordered neuro consult fu recs ordered Ativan as needed for breakthrough seizures seizure precautions neuro checks q4h npo for now fall precautions Bedrest ordered keppra for now chronic problems seizures focal anemia anxiety asthma cva copd thyroid problems dm ISS hld fen/ppx npo until more alert hl scd no gi ppx since no hx of gerds or gi bleed plan admit to [facility] DNP January 09, 2025 16:31
== END 2025-01-09 16:44 | disposition left against medical advice (07) ==
LOC: EDBD 13:00 → ER 13:05
DX: R55 Syncope and collapse (principal); R53.1 Weakness; D64.9 Anemia, unspecified; E11.9 Type 2 diabetes mellitus without complications; J44.9 Chronic obstructive pulmonary disease, unspecified; E78.5 Hyperlipidemia, unspecified; G40.909 Epilepsy, unspecified, not intractable, without status epilepticus; Z86.73 Personal history of transient ischemic attack (TIA), and cerebral infarction without residual deficits; Z90.710 Acquired absence of both cervix and uterus; Z88.0 Allergy status to penicillin
CPT/HCPCS: 36415; 70450; 71045; 80048; 84484; 85025; 99291

== ENCOUNTER 2025-01-21 11:10 | Emergency (ER) | payer MEDICAID ==
[~2025-01-21] VITALS: Ht 170.2 cm; Wt 89.9 kg
[2025-01-21 11:17] VITALS: BP 132/75; PULSE 66; RESP 16; TEMP 97.2; O2SAT 97
== END 2025-01-21 11:31 | disposition left against medical advice (07) ==
LOC: ER 11:10
DX: M79.602 Pain in left arm (principal); Z53.21 Procedure and treatment not carried out due to patient leaving prior to being seen by health care provider

== ENCOUNTER 2025-01-24 08:57 | Emergency (ER) | payer MEDICAID ==
[~2025-01-24] VITALS: Ht 170.2 cm; Wt 86.5 kg
[2025-01-24 09:30] VITALS: PULSE 77; RESP 12; O2SAT 92
--- NOTE | 2025-01-24 10:40 | ED.PDOC ---
HPI (NEURO) HPI Comments 59 year old female DEQUAN presents to the ED with chief complaint of seizure. EMS reports that the patient was witnessed by her spouse to have had a seizure at home today, lasting around 30 seconds. EMS relays that the patient has history of gran mal seizures. 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 Patient notes her last seizure was last week. Patient denies any headache, dizziness, N/V, chest pain, SOB, or fever. 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: No Pertinent 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 INSPECTOR History Family History Family History: Reviewed,noncontributory to illness, Family hx of DM Social History Smoker: Non-Smoker Alcohol: Denies ETOH Use Drugs: Denies Drug Use Lives In: Home Constitutional: denies: chills, diaphoresis, fatigue, fever, malaise, sweats, weakness, others EENTM: denies: blurred vision, double vision, ear bleeding, ear discharge, ear drainage, ear pain, ear ringing, eye pain, eye redness, hearing loss, mouth pain, mouth swelling, nasal discharge, nose bleeding, nose congestion, nose pain, photophobia, tearing, throat pain, throat swelling, voice changes, others Respiratory: denies: cough, hemoptysis, orthopnea, SOB at rest, shortness of breath, SOB with excertion, stridor, wheezing, others Cardiovascular: denies: chest pain, dizzy spells, diaphoresis, Dyspnea on exertion, edema, irregular heart beat, left arm pain, lightheadedness, palpitations, PND, syncope, others Gastrointestinal: denies: abdomen distended, abdominal pain, blood streaked bowels, constipated, diarrhea, dysphagia, difficulty swallowing, hematemesis, melena, nausea, poor appetite, poor fluid intake, rectal bleeding, rectal pain, vomiting, others Genitourinary: denies: abnormal vagina bleeding, burning, dyspareunia, dysuria, flank pain, frequency, hematuria, incontinence, pain, , vagina discharge, urgency, others Neurological: reports: seizure; denies: dizziness, fainting, headache, left sided numbness, left sided weakness, numbness, paresthesia, pre-existing deficit, right sided numbness, right sided weakness, speech problems, tingling, tremors, weakness, others Musculoskeletal: denies: back pain, gout, joint pain, joint swelling, muscle pain, muscle stiffness, neck pain, others Integumetry: denies: bruises, change in color, change in hair/nails, dryness, laceration, lesions, lumps, rash, wounds, others Allergic/Immunocompromised: denies: Difficulty Healing, Frequent Infections, Hives, Itching, others Hematologic/Lymphatic: denies: anemia, blood clots, easy bleeding, easy bruising, swollen glands, others Endocrine: denies: excessive hunger, excessive sweating, excessive thirst, excessive urination, flushing, intolerance to cold, intolerance to heat, unexplained weight gain, unexplained weight loss, others Psychiatric: denies: anxiety, bipolar disorder, depression, hopeless, panic disorder, schizophrenia, sleepless, suicidal, others All Other Systems: Reviewed and Negative Physical Exam General Appearance: Mild Distress, Normal HEENT: Normal ENT Inspection, PERRL/EOMI, Pharynx Normal, TMs Normal, NOT DONE (Postictal state) Neck: Full Range of Motion, Non-Tender, Normal, Normal Inspection Respiratory: Chest Non-Tender, Lungs Clear, No Accessory Muscle Use, No Respiratory Distress, Normal Breath Sounds Cardiovascular: No Edema, No JVD, No Murmur, No Gallop, Normal Peripheral Pulses, Regular Rate/Rhythm Breast Exam: Deferred Gastrointestinal: No Organomegaly, Non Tender, No Pulsatile Mass, Normal Bowel Sounds, Soft Genitalia: Deferred Pelvic: Deferred Rectal: Deferred Extremities: No calf tenderness, Normal capillary refill, Normal inspection, Normal range of motion, Non-tender, No pedal edema Musculoskeletal : Apperance: Normal 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 Was a procedure done?: No Differential Diagnosis (SZ) Seizure: Hyperventilation, Anticonvulsant Withdrawl, Hypocalcemia, Hypoglycemia, Hyponatremia, Mass Lesion, Epilepsy-Break Through, Epilepsy-Status CVA: Electrolyte Imbalance, Hypoglycemia, Mass Lesion, TIA General Weakness: Anemia, Dehydration, Dysrhythmia, Electrolyte imbalance, Hypoglycemia, Hypovolemia, Renal failure, TIA Headache: N/A X-Ray, Labs, Meds, VS Vital Signs Date Time Temp Pulse Resp B/P (MAP) Pulse Ox O2 Delivery O2 Flow Rate FiO2 01/24/25 16:20 76 20 113/70 (84) 92 01/24/25 14:30 98.0 80 18 121/77 (92) 96 98.0 01/24/25 12:00 69 12 130/82 (98) 99 01/24/25 10:26 69 12 105/71 (82) 93 01/24/25 09:30 77 12 92 Room Air* 0 21 01/24/25 09:30 98.8 77 12 100/73 (82) 92 98.8 01/24/25 09:00 98.7 74 16 136/82 (100) 95 98.7 Lab Test 01/24/25 12:10 01/24/25 11:34 Range/Units Urine Color Light-yellow Yellow Urine Clarity Turbid H Clear Urine pH 5.5 5.0-9.0 Urine Specific Rydal 1.019 1.001-1.035 Urine Protein Trace H Negative Urine Ketones Negative Negative Urine Blood 1+ H Negative /uL Urine Nitrite Negative Negative Urine Bilirubin Negative Negative Urine Urobilinogen Normal Negative mg/dL Urine Leukocyte Esterase 1+ Negative /uL Urine RBC 17 0 - 4 /hpf Urine Microscopic WBC 17 H 0-5 /HPF Urine Squamous Epithelial Cells Few <5 /hpf Urine Bacteria None seen None Seen /hpf Urine Mucus Few None Seen Urine Glucose Normal Normal mg/dL White Blood Count 9.5 4.4-10.8 10^3/uL Red Blood Count 4.42 4.0-5.20 10^6/uL Hemoglobin 13.0 12.2-16.2 g/dL Hematocrit 39.5 36.0-46.0 % Mean Corpuscular Volume 89.3 80.0-100.0 fL Mean Corpuscular Hemoglobin 29.4 28.0-32.0 pg Mean Corpuscular Hemoglobin Concent 32.9 32.0-36.0 g/dL Red Cell Distribution Width 14.9 H 11.8-14.3 % Platelet Count 316 140-450 10^3/uL Mean Platelet Volume 7.3 6.9-10.8 fL Neutrophils (%) (Auto) 74.3 37.0-80.0 % Lymphocytes (%) (Auto) 18.0 10.0-50.0 % Monocytes (%) (Auto) 5.6 0.0-12.0 % Eosinophils (%) (Auto) 1.1 0.0-7.0 % Basophils (%) (Auto) 1.0 0.0-2.0 % Neutrophils # (Auto) 7.1 1.6-8.6 10 ^3/uL Lymphocytes # (Auto) 1.7 0.4-5.4 10 ^3/uL Monocytes # (Auto) 0.5 0-1.3 10 ^3/uL Eosinophils # (Auto) 0.1 0-0.8 10 ^3/uL Basophils # (Auto) 0.1 0-0.2 10 ^3/uL Nucleated Red Blood Cells 0.1 % Sodium Level 144 136-145 mmol/L Potassium Level 3.6 3.5-5.1 mmol/L Chloride Level 107 98-107 mmol/L Carbon Dioxide Level 26 20-31 mmol/L Anion Gap 11 5-15 Blood Urea Nitrogen 12 9-23 mg/dL Creatinine 1.32 H 0.550-1.02 mg/dL Glomerular Filtration Rate Calc 46 >90 mL/min BUN/Creatinine Ratio 9.1 L 10.0-20.0 Serum Glucose 97 74-106 mg/dL Calcium Level 9.8 8.7-10.4 mg/dL Magnesium Level 2.2 1.6-2.6 mg/dL Total Bilirubin 0.3 0.2-1.0 mg/dL Aspartate Amino Transferase (AST) 12 L 13-40 U/L Alanine Aminotransferase (ALT) 11 7-40 U/L Alkaline Phosphatase 100 46-116 U/L Troponin I High Sensitivity < 3 L </=34 ng/L Total Protein 7.1 5.7-8.2 g/dL Albumin 4.6 3.2-4.8 g/dL Current Medications Medications (Trade) Dose Ordered Sig/Noé Route Start Time Stop Time Status Last Admin Sodium Chloride 500 ml @ 500 mls/hr Q1H ONCE IVB 01/24/25 11:00 01/24/25 11:59 DC 01/24/25 12:21 Lorazepam (Ativan Inj) 1 mg ONCE ONCE IV 01/24/25 11:00 01/24/25 11:01 DC 01/24/25 12:19 Sodium Chloride 1,000 ml @ 150 mls/hr Q6H40M ONCE IV 01/24/25 11:00 01/24/25 17:39 01/24/25 12:21 X-Ray, Labs, Meds, VS Comment Course in the emergency department eventful patient came in because of a seizure disorder last seizure was a week ago patient takes lamotrigine end-stage glossy 0 She is allergic to Haldol valproic acid and penicillin Chest x-ray is normal CT shows a left cranial from toe temporal craniotomy and ethmoid sinusitis CBC normal Urine shows 1+ blood 1+ leukocyte esterase CMP normal except for GFR of 46 Magnesium 2.2 Troponin three Patient has been observed for several hours she is doing well and will be discharged to be followed by Neurology Time of 1ST Reevaluation: 11:38 Reevaluation 1ST: Unchanged Time of 2ND Reevaluation: 16:09 Reevaluation 2ND: Improved Consultation: PCP, Neurology Patient Education/Counseling: Diagnosis, Treatment, Prognosis, Need For Follow Up Family Education/Counseling: Diagnosis, Treatment, Prognosis, Need For Follow Up, No Family Present Departure 1 Departure Time of Disposition: 16:50 Impression: Primary Impression: Seizure disorder Additional Impression: UTI (urinary tract infection) Qualified Codes: N30.00 - Acute cystitis without hematuria Disposition: 01 HOME / SELF CARE / HOMELESS Condition: Fair Additional Instructions: Push fluids Take your seizure medications and follow up with your neurologist e-Prescriptions Lorazepam (Lorazepam) 1 Mg Tab 1 TAB PO BID for 10 Days, #20 TAB Prov: CAMILO MAY MD 01/24/25 Cefdinir (Cefdinir) 300 Mg Cap 1 CAP PO BID for 7 Days, #14 CAP Prov: CAMILO MAY MD 01/24/25 Discharged With: Self Critical Care Note Critical Care Time?: No Stability Stability form required: No Heart Score Heart Score: Heart Score Response (Comments) Value History N/A 0 EKG N/A 0 Age 45-64 1 Risk Factors 1 or 2 risk factors 1 Troponin N/A 0 Total 2 I personally scribed for CAMILO MAY MD ([email or web address]) on 01/24/25 at 10:40. Naye ctronically submitted by Fish Narayanan ([email or web address]). I personally scribed for CAMILO MAY MD ([email or web address]) on 01/24/25 at 10:41. El ectronically submitted by Fish Narayanan ([email or web address]). CAMILO MAY MD January 24, 2025 10:40
--- NOTE | 2025-01-24 11:43 | DVH ---
EXAM: CT HEAD WITHOUT CONTRAST HISTORY: sz COMPARISON: CT HEAD WITHOUT CONTRAST on DOS: 01/09/25, CT HEAD WITHOUT CONTRAST on DOS: 03/24/23, CT HEA D WITHOUT CONTRAST on DOS: 12/17/22, HEAD WITHOUT CONTRAST on DOS: 03/17/22 TECHNIQUE: Noncontrast axial CT images of the head were performed. Sagittal and coronal reformatted i mages were obtained. This CT exam was performed using 1 or more of the following dose reduction techn iques: Automated exposure control, adjustment of the mA and/or kv according to patient size, or the u se of iterative reconstruction techniques. Radiation Dose: CTDI volume is 56.36 mGy. Dose-length product is 1014.51 mGy*cm FINDINGS: No intracranial hemorrhage, mass, midline shift, hydrocephalus, or evidence of acute large vessel inf arct. Left frontotemporal craniotomy re-identified. There is mild mucosal thickening of the bilateral ethmoid sinuses. The bilateral mastoid air cells and middle ear spaces are clear. No cranial fractur e or scalp edema. IMPRESSION: 1. No acute intracranial process. 2. Left frontotemporal craniotomy re-identified. 3. Mild ethmoid sinus disease.
--- NOTE | 2025-01-24 11:44 | DVH ---
XY CHEST TWO VIEWS ROUTINE, HISTORY: sz COMPARISON: XY CHEST TWO VIEWS ROUTINE on DOS: 11/11/22, CXR2 on DOS: 09/19/22, CHEST TWO VIEWS ROUTINE on DOS: 09/19/22 XY CHEST TWO VIEWS ROUTINE on DOS: 11/11/22, CXR2 on DOS: 09/19/22, CHEST TWO VIEWS ROUTINE on DOS: 09/19 TECHNICAL DATA: 2 view of the chest was obtained. FINDINGS: Lines and tubes: A spinal stimulator is seen. Cardiomediastinal silhouette: normal Pulmonary vasculature: normal Lung expansion: normal Lung airspace: normal Lung interstitium: normal Pleura: normal Pneumothorax: no Bones: Unremarkable Other: no IMPRESSION: No acute intrathoracic abnormality.
[2025-01-24 11:54] LABS: Basophils # (auto) 0.1 10 ^3/uL (0-0.2); Eosinophils # (auto) 0.1 10 ^3/uL (0-0.8); Eosinophils % (auto) 1.1 % (0.0-7.0); Hematocrit 39.5 % (36.0-46.0); Lymphocytes # (auto) 1.7 10 ^3/uL (0.4-5.4); Mean Corpuscular Hemoglobin 29.4 pg (28.0-32.0); Mean Corpuscular Hgb Conc. 32.9 g/dL (32.0-36.0); Mean Corpuscular Volume 89.3 fL (80.0-100.0); Monocytes # (auto) 0.5 10 ^3/uL (0-1.3); Monocytes % (auto) 5.6 % (0.0-12.0); Neutrophils # (auto) 7.1 10 ^3/uL (1.6-8.6); Neutrophils % (auto) 74.3 % (37.0-80.0); Nucleated Red Blood Cells % 0.1 %; Platelet Count (auto) 316 10^3/uL (140-450); Red Blood Cells 4.42 10^6/uL (4.0-5.20); Red Cell Distribution Width 14.9 % (11.8-14.3); White Blood Cell 9.5 10^3/uL (4.4-10.8)
[2025-01-24 12:15] LABS: Urine Bacteria None Seen /hpf (None Seen)
[2025-01-24 12:17] LABS: Alanine Aminotransferase 11 U/L (7-40); Alkaline Phosphatase 100 U/L (46-116); Calcium 9.8 mg/dL (8.7-10.4); Carbon Dioxide 26 mmol/L (20-31)
[2025-01-24 12:18] LABS: Albumin 4.6 g/dL (3.2-4.8); Anion Gap 11 (5-15); BUN/Creatinine Ratio 9.1 (10.0-20.0); Bilirubin, Total 0.3 mg/dL (0.2-1.0); Blood Urea Nitrogen 12 mg/dL (9-23); Glucose 97 mg/dL (74-106); Magnesium 2.2 mg/dL (1.6-2.6); Potassium 3.6 mmol/L (3.5-5.1); Sodium 144 mmol/L (136-145); Total Protein 7.1 g/dL (5.7-8.2)
[2025-01-24 12:19] LABS: Aspartate Aminotransferase 12 U/L (13-40); Chloride 107 mmol/L (98-107)
[2025-01-24] MEDS: LORazepam 2MG/ML-1ML VIAL IV ONE (12:19)
[2025-01-24] MEDS: SODIUM CHLORIDE 0.9% 1,000 ML IV ONE (12:21)
[2025-01-24] MEDS: SODIUM CHLORIDE 0.9% 500 ML IVB ONE (12:21)
[2025-01-24 12:28] LABS: Urine Blood 1+ /uL (Negative); Urine Clarity Turbid (Clear); Urine Color Light-Yellow (Yellow); Urine Mucus FEW (None Seen); Urine Protein, UAD TRACE (Negative); Urine Specific Gravity 1.019 (1.001-1.035); Urine Squamous Epithelial Cell FEW /hpf (<5); Urine Urobilinogen Normal (Negative); Urine WBC 17 /HPF (0-5); Urine pH 5.5 (5.0-9.0)
[2025-01-24 14:30] VITALS: TEMP 98
[2025-01-24] MEDS ORDERED: CEFD300C2 PO (16:13)
[2025-01-24 16:20] VITALS: BP 113/70; PULSE 76; RESP 20; O2SAT 92
[2025-01-24] MEDS ORDERED: LORA-1123 PO (16:51)
== END 2025-01-24 17:15 | disposition home or self-care (01) ==
LOC: EDSEX 08:57 → ER 08:57 → EDBD 08:57 → ER 17:15
DX: G40.909 Epilepsy, unspecified, not intractable, without status epilepticus (principal); N39.0 Urinary tract infection, site not specified; I10 Essential (primary) hypertension; E11.9 Type 2 diabetes mellitus without complications; F41.9 Anxiety disorder, unspecified; J44.89 Other specified chronic obstructive pulmonary disease; Z90.710 Acquired absence of both cervix and uterus; D64.9 Anemia, unspecified; E03.9 Hypothyroidism, unspecified; Z98.890 Other specified postprocedural states
CPT/HCPCS: 36415; 70450; 71046; 80053; 81001; 82947; 83735; 84484; 85025; 96361; 96374; 99285; J2060; J7030; J7040

== ENCOUNTER 2025-03-09 12:01 | Emergency (ER) | payer MEDICAID ==
[~2025-03-09] VITALS: Ht 170.2 cm; Wt 87.4 kg
[~2025-03-09 12:01] MED LIST changes: +CEFD300C2 PO; +LORA-1123 PO
[2025-03-09] MEDS ORDERED: TOB03OS OP (13:04)
--- NOTE | 2025-03-09 13:10 | ED.PDOC ---
Eye-HPI HPI Comments A 59 YEAR-OLD FEMALE PRESENTS TO THE ED WITH A CHIEF COMPLAINT OF LEFT EYE REDNESS OF X3 DAYS AGO. PATIENT STATES THAT SHE WAS TOLD THERE WAS "SOMETHING RED" IN THE TOP LEFT CORNER OF THE LEFT EYE. UPON EVALUATION BY PERSONNEL INTERVIEWER, PATIENT HAS NO FOREIGN OBJECT NOTED AND OTHERWISE DENIES FURTHER ASSOCIATED SYMPTOMS OF DIZZINESS, VISION CHANGES, OR MIGRAINE. PATIENT IS ALERT, ORIENTED X 4, AND HAS STEADY GAIT. Chief Complaint: Eye Problem Time Seen by MD: 13:00 Primary Care Provider: BETSY Reviewed Notes: Nurses Notes, Medications, Allergies Allergies: Coded Allergies: Valproic Acid (Verified Allergy, Mild, 10/23/19) Haloperidol (Verified Allergy, Unknown, 10/23/19) Penicillins (Verified Allergy, Unknown, 10/23/19) Home Meds Active Scripts Tobramycin Sulfate (Tobrex) [address], 2 DROP OP QID, #5 ML Prov:HIRAL COHEN 03/09/25 Lorazepam (Lorazepam) 1 Mg Tab, 1 TAB PO BID for 10 Days, #20 TAB Prov:CAMILO MAY MD 01/24/25 Cefdinir (Cefdinir) 300 Mg Cap, 1 CAP PO BID for 7 Days, #14 CAP Prov:CAMILO MAY MD 01/24/25 Ibuprofen Micronized (Ibuprofen) 800 Mg Tab, 800 MG PO TID for 14 Days, #42 TAB 0 Refills Prov:RAFIA ESCUDERO PERSONNEL INTERVIEWER 07/03/24 Clindamycin Hcl (Clindamycin Hcl) 300 Mg Cap, 300 MG PO TID for 7 Days, #21 CAP Prov:HIGINIO HANCOCK DO 05/02/24 Methocarbamol (Methocarbamol) 750 Mg Tab, 750 MG PO BID, #20 TAB Prov:HIRAL COHEN 05/12/23 Hydrocodone-Acetaminophen (Hydrocodone Bitartrate/AC 5-325 mg) 1 Tab Tab, 1 TAB PO BID, #14 TAB Prov:HIRAL COHEN 04/29/23 Albuterol Sulfate (Ventolin) 2.5 Mg/0.5 Ml Nb, 1 VIAL NEB Q4HR, #60 VIAL 1 Refil l Prov:HIRAL COHEN 03/19/23 Promethazine-Dm (Promethazine Dm 6.25-15 mg/5Ml) 1 Lucy Lucy, 5 ML PO TID, #160 ML Prov:HIRAL COHEN 03/19/23 Levofloxacin (Levaquin 750 mg) 750 Mg Tab, 1 TAB PO DAILY for 7 Days, #7 TAB 0 Refills Prov:GM SCALES [facility] 03/17/23 Azithromycin (Zithromax Z-Jatin) 250 Mg Tab, 250 MG PO DAILY for 5 Days, #6 TAB 0 Refills Z-Jatin as directed Prov:GM SCALES [facility] 03/17/23 Ibuprofen Micronized (MOTRIN TABLET) 600 Mg Tb, 600 MG PO TID PRN for 5 Days, #15 TAB *Black box warning-NSAIDS can increase risk of [place] & hypertension, GI irritation, ulceration, bleed, perferation. Do not use post cardiac surgery. Use short duration/lowest effective dose. Prov:ELANA BURGER MD 09/21/22 Acetaminophen (Tylenol 8 Hour Arthritis) 650 Mg Tab, 650 MG PO TID, #30 TAB Prov:HIRAL COHEN 03/04/22 Gabapentin (Gabapentin) 300 Mg Cap, 900 MG PO TID, #180 CAP Prov:TRENTON PETERS MD 05/14/21 Reported Medications Ferrous Sulfate (Ferrous Sulfate) 325 Mg Tab, 325 MG PO QDPC for 30 Days, MG 09/15/19 Ergocalciferol (VITAMIN D2) 400 Unit Tab, 400 UNIT PO, TAB 09/15/19 Ertugliflozin l-Pyroglutamic A (Steglatro) 5 Mg Tab, 5 MG PO DAILY, TAB 09/15/19 Lamotrigine (Lamictal) 100 Mg Tab, 1 TAB PO BID, #60 TAB 1 Refill 09/15/19 Metformin Hydrochloride (Metformin Hcl) 500 Mg Tab 06/22/19 Hydrocodone-Acetaminophen (Hydrocodone Bitartrate/AC 10-325 mg) 1 Tab Tab 06/22/19 Lamotrigine (Lamotrigine) 25 Mg Tab, 50 MG PO BID, TAB 09/12/18 Atorvastatin Calcium (ATORVASTATIN CALCIUM) 80 Mg Tab, 1 TAB PO HS, #30 TAB 5 Refills 09/12/18 Eslicarbazepine Acetate (Aptiom) 800 Mg Tab, 1600 MG PO DAILY, TAB 04/25/18 Mirtazapine (Mirtazapine Oral Disintegrating Tablet) 15 Mg Tab, 2 TAB PO QPM, #30 TAB 3 Refills 04/25/18 Aspirin (Aspirin) 325 Mg Tab, 325 MG PO DAILY for 30 Days, MG 04/25/18 Levothyroxine Sodium (Levothyroxine Sodium) 25 Mcg Tab, 75 MCG PO QAM, MCG 05/06/16 Information Source: Patient Mode of Arrival: Ambulatory Timing: Days (X2) Duration: Since onset Quality: Red, Green Eye Location: Left Lids: Normal Conjunctiva: Normal Cornea: Normal Pupils: Normal EOM: Normal Fundus: Normal Slit lamp exam: Normal Anterior chamber: Normal Nose: Normal Sinuses: Normal Oropharynx: Normal Onset: Spontaneous Throat Exposed to: None History of: None Last Tetanus: UTD Associated signs and symptoms: Other (LEFT EYE REDNESS ) Past Medical History PAST MEDICAL HISTORY: Anemia, Anxiety, Asthma, COPD, CVA, DM, High Lipids, Seizures, Thyroid Surgical History: , Hysterectomy TEXTILE ARTIST History: No Pertinent TEXTILE ARTIST History Family History Family History: Reviewed,noncontributory to illness, Family hx of DM Social History Smoker: Non-Smoker Alcohol: Denies ETOH Use Drugs: Denies Drug Use Lives In: Home Constitutional: denies: chills, diaphoresis, fatigue, fever, malaise, sweats, weakness, others EENTM: reports: eye redness (LEFT ); denies: blurred vision, double vision, ear bleeding, ear discharge, ear drainage, ear pain, ear ringing, eye pain, hearing loss, mouth pain, mouth swelling, nasal discharge, nose bleeding, nose congestion, nose pain, photophobia, tearing, throat pain, throat swelling, voice changes, others Respiratory: denies: cough, hemoptysis, orthopnea, SOB at rest, shortness of breath, SOB with excertion, stridor, wheezing, others Cardiovascular: denies: chest pain, dizzy spells, diaphoresis, Dyspnea on exertion, edema, irregular heart beat, left arm pain, lightheadedness, palpitations, PND, syncope, others Gastrointestinal: denies: abdomen distended, abdominal pain, blood streaked bowels, constipated, diarrhea, dysphagia, difficulty swallowing, hematemesis, melena, nausea, poor appetite, poor fluid intake, rectal bleeding, rectal pain, vomiting, others Genitourinary: denies: abnormal vagina bleeding, burning, dyspareunia, dysuria, flank pain, frequency, hematuria, incontinence, pain, , vagina discharge, urgency, others Neurological: denies: dizziness, fainting, headache, left sided numbness, left sided weakness, numbness, paresthesia, pre-existing deficit, right sided numbness, right sided weakness, seizure, speech problems, tingling, tremors, weakness, others Musculoskeletal: denies: back pain, gout, joint pain, joint swelling, muscle pain, muscle stiffness, neck pain, others Integumetry: denies: bruises, change in color, change in hair/nails, dryness, laceration, lesions, lumps, rash, wounds, others Allergic/Immunocompromised: denies: Difficulty Healing, Frequent Infections, Hives, Itching, others Hematologic/Lymphatic: denies: anemia, blood clots, easy bleeding, easy bruising, swollen glands, others Endocrine: denies: excessive hunger, excessive sweating, excessive thirst, excessive urination, flushing, intolerance to cold, intolerance to heat, unexplained weight gain, unexplained weight loss, others Psychiatric: denies: anxiety, bipolar disorder, depression, hopeless, panic disorder, schizophrenia, sleepless, suicidal, others All Other Systems: Reviewed and Negative Physical Exam General Appearance: No Apparent Distress, Normal HEENT: Normal ENT Inspection, PERRL/EOMI, Pharynx Normal, TMs Normal, Other (MILD LEFT SUBCONJUNCTIVA HEMORRHAGE WITH GREEN DISCHARGE. ) Neck: Full Range of Motion, Non-Tender, Normal, Normal Inspection Respiratory: Chest Non-Tender, Lungs Clear, No Accessory Muscle Use, No Respiratory Distress, Normal Breath Sounds Cardiovascular: No Edema, No JVD, No Murmur, No Gallop, Normal Peripheral Pulses, Regular Rate/Rhythm Breast Exam: Deferred Gastrointestinal: No Organomegaly, Non Tender, No Pulsatile Mass, Normal Bowel Sounds, Soft Genitalia: Deferred Pelvic: Deferred Rectal: Deferred Extremities: No calf tenderness, Normal capillary refill, Normal inspection, Normal range of motion, Non-tender, No pedal edema Musculoskeletal : Apperance: Normal Neurologic: Alert, senior controller II-XII nml as Tested, No Motor Deficits, Normal Affect, Normal Mood, No Sensory Deficits Cerebellar Function: Normal Reflexes: Normal Skin: Dry, Normal Color, Warm Peripheral Pulses: 2+ carotid (R), 2+ carotid (L) Lymphatic: No Adenopathy Was a procedure done? Was a procedure done?: No EENT DIFF Eye: Conjunctivitis, Allergic, Bacterial, Viral, Corneal Abrasion X-Ray, Labs, Meds, VS Vital Signs Date Time Temp Pulse Resp B/P (MAP) Pulse Ox O2 Delivery O2 Flow Rate FiO2 03/09/25 12:10 98.2 68 18 116/63 (80) 97 98.2 Lab Test 03/09/25 12:12 Range/Units POC Glucose 119 H 70-106 mg/dl X-Ray, Labs, Meds, VS Comment EXTERNAL MEDICAL RECORDS: NONE INDEPENDENT HISTORIANS: NONE SOCIAL DETERMINANTS OF HEALTH: NONE LABS ORDERED: NONE REVIEWED AND INTERPRETED RESULTS: NONE IMAGING ORDERED: NONE TREATMENTS ORDERED: NONE PATIENT'S CASE AND RESULTS HAVE BEEN DISCUSSED WITH THE ED ATTENDING PHYSICIAN, DR. BURGER, AND THEY AGREE WITH MY PLAN OF CARE. RX: TOPIEX I HAVE DISCUSSED THE RESULTS WITH THE PATIENT AND HAVE INSTRUCTED THE PATIENT TO FOLLOW UP WITH THEIR PCP IN 1-2 DAYS. THE PATIENT FULLY UNDERSTANDS THEIR RESULTS AND ARE AWARE THEY NEED TO FOLLOW UP WITH THEIR PCP FOR FURTHER EVALUATION IF THEIR SYMPTOMS PERSIST. Images Reviewed?: Images reviewed and evaluated by me Time of 1ST Reevaluation: 13:14 Reevaluation 1ST: Improved Patient Education/Counseling: Diagnosis, Treatment, Need For Follow Up Family Education/Counseling: Diagnosis, Treatment, Need For Follow Up Medical Screening: No EMC Exist At This Time SEPSIS Sepsis Screen Date sepsis recognized/suspect: Mar 09, 2025 Time Sepsis recognized/suspect: 1210 Recent Procedure: No On Antibiotic Therapy: No Respiratory Rate >20: No Heart Rate >90: No Temp<36 C (96.8 F) or >38.3 C: No SBP <90 or MAP <65 mmHG: No New Acute Mental Status Change: No Is the patient on CPAP, BIPAP,: No Vital Signs Date Time Temp Pulse Resp B/P (MAP) Pulse Ox O2 Delivery O2 Flow Rate FiO2 03/09/25 12:10 98.2 68 18 116/63 (80) 97 98.2 Departure 1 Departure Time of Disposition: 13:14 Impression: Primary Impression: Acute conjunctivitis of left eye Qualified Codes: H10.32 - Unspecified acute conjunctivitis, left eye Disposition: HOME / SELF CARE / HOMELESS Condition: Stable Additional Instructions: FOLLOW-UP WITH PCP IN 1 TO 2 DAYS. TAKE MEDICATIONS PRESCRIBED. RETURN TO ED FOR ANY NEW OR WORSENING SYMPTOMS. e-Prescriptions Tobramycin Sulfate (Tobrex) [address] 2 DROP OP QID, #5 ML Prov: HIRAL COHEN 03/09/25 Discharged With: Self Critical Care Note Critical Care Time?: No Stability Stability form required: No I personally scribed for HIRAL COHEN ([email or web address]) on 03/09/25 at 13:10. Electronically submitted by Lissett Devlin ([email or web address]). HIRAL COHEN Mar 09, 2025 13:10
[2025-03-09 13:14] VITALS: BP 117/71; PULSE 66; RESP 18; TEMP 98.3; O2SAT 98
== END 2025-03-09 13:16 | disposition home or self-care (01) ==
LOC: ER 12:01
DX: H10.32 Unspecified acute conjunctivitis, left eye (principal); E11.9 Type 2 diabetes mellitus without complications; F41.9 Anxiety disorder, unspecified; J44.89 Other specified chronic obstructive pulmonary disease; E03.9 Hypothyroidism, unspecified; Z79.82 Long term (current) use of aspirin; Z79.84 Long term (current) use of oral hypoglycemic drugs; Z79.899 Other long term (current) drug therapy; Z86.73 Personal history of transient ischemic attack (TIA), and cerebral infarction without residual deficits; Z90.710 Acquired absence of both cervix and uterus; Z88.0 Allergy status to penicillin; Z88.8 Allergy status to other drugs, medicaments and biological substances
CPT/HCPCS: 82947; 82962

== ENCOUNTER 2025-04-13 13:09 | Emergency (ER) | payer MEDICAID ==
[~2025-04-13] VITALS: Ht 170.2 cm; Wt 84.6 kg
[~2025-04-13 13:09] MED LIST changes: +TOB03OS OP
[2025-04-13 13:13] VITALS: BP 121/72; PULSE 71; RESP 18; TEMP 98.5; O2SAT 98
--- NOTE | 2025-04-13 13:19 | ED.PDOC ---
History of Present Illness HPI Comments 59-year-old female presents with a chief complaint of HTN. Patient states that she has a home health nurse that checks on her Tuesdays and Fridays. Patient reports that she was told to come into the ER by her nurse because her blood pressure "has been running high lately and causing me to have seizures". Alana hernandez blood pressure at time of evaluation was 121/72. Patient denies any symptoms such as headache, light sensitivity, dizziness, lightheadedness, or chest pain. Chief Complaint: High Blood Pressure Time Seen by MD: 13:13 Primary Care Provider: BETSY Reviewed Notes: Nurses Notes, Medications, Allergies Allergies: Coded Allergies: Valproic Acid (Verified Allergy, Mild, 10/23/19) Haloperidol (Verified Allergy, Unknown, 10/23/19) Penicillins (Verified Allergy, Unknown, 10/23/19) Home Meds Active Scripts Tobramycin Sulfate (Tobrex) [address], 2 DROP OP QID, #5 ML Prov:HIRAL COHEN 03/09/25 Lorazepam (Lorazepam) 1 Mg Tab, 1 TAB PO BID for 10 Days, #20 TAB Prov:CAMILO MAY MD 01/24/25 Cefdinir (Cefdinir) 300 Mg Cap, 1 CAP PO BID for 7 Days, #14 CAP Prov:CAMILO MAY MD 01/24/25 Ibuprofen Micronized (Ibuprofen) 800 Mg Tab, 800 MG PO TID for 14 Days, #42 TAB 0 Refills Prov:ARFIA ESCUDERO MOLD STAMPER AND REPAIRER 07/03/24 Clindamycin Hcl (Clindamycin Hcl) 300 Mg Cap, 300 MG PO TID for 7 Days, #21 CAP Prov:HIGINIO HANCOCK DO 05/02/24 Methocarbamol (Methocarbamol) 750 Mg Tab, 750 MG PO BID, #20 TAB Prov:HIRAL COHEN 05/12/23 Hydrocodone-Acetaminophen (Hydrocodone Bitartrate/AC 5-325 mg) 1 Tab Tab, 1 TAB PO BID, #14 TAB Prov:HIRAL COHEN 04/29/23 Albuterol Sulfate (Ventolin) 2.5 Mg/0.5 Ml Nb, 1 VIAL NEB Q4HR, #60 VIAL 1 Refill Prov:HIRAL COHEN 03/19/23 Promethazine-Dm (Promethazine Dm 6.25-15 mg/5Ml) 1 Lucy Lucy, 5 ML PO TID, #160 ML Prov:HIRAL COHEN 03/19/23 Levofloxacin (Levaquin 750 mg) 750 Mg Tab, 1 TAB PO DAILY for 7 Days, #7 TAB 0 Refills Prov:GM SCALES [facility] 03/17/23 Azithromycin (Zithromax Z-Jatin) 250 Mg Tab, 250 MG PO DAILY for 5 Days, #6 TAB 0 Refills Z-Jatin as directed Prov:GM SCALES [facility] 03/17/23 Ibuprofen Micronized (MOTRIN TABLET) 600 Mg Tb, 600 MG PO TID PRN for 5 Days, #15 TAB *Black box warning-NSAIDS can increase risk of [place] & hypertension, GI irritation, ulceration, bleed, perferation. Do not use post cardiac surgery. Use short duration/lowest effective dose. Prov:ELANA BURGER MD 09/21/22 Acetaminophen (Tylenol 8 Hour Arthritis) 650 Mg Tab, 650 MG PO TID, #30 TAB Prov:HIRAL COHEN 03/04/22 Gabapentin (Gabapentin) 300 Mg Cap, 900 MG PO TID, #180 CAP Prov:TRENTON PETERS MD 05/14/21 Reported Medications Ferrous Sulfate (Ferrous Sulfate) 325 Mg Tab, 325 MG PO QDPC for 30 Days, MG 09/15/19 Ergocalciferol (VITAMIN D2) 400 Unit Tab, 400 UNIT PO, TAB 09/15/19 Ertugliflozin l-Pyroglutamic A (Steglatro) 5 Mg Tab, 5 MG PO DAILY, TAB 09/15/19 Lamotrigine (Lamictal) 100 Mg Tab, 1 TAB PO BID, #60 TAB 1 Refill 09/15/19 Metformin Hydrochloride (Metformin Hcl) 500 Mg Tab 06/22/19 Hydrocodone-Acetaminophen (Hydrocodone Bitartrate/AC 10-325 mg) 1 Tab Tab 06/22/19 Lamotrigine (Lamotrigine) 25 Mg Tab, 50 MG PO BID, TAB 09/12/18 Atorvastatin Calcium (ATORVASTATIN CALCIUM) 80 Mg Tab, 1 TAB PO HS, #30 TAB 5 Refills 09/12/18 Eslicarbazepine Acetate (Aptiom) 800 Mg Tab, 1600 MG PO DAILY, TAB 04/25/18 Mirtazapine (Mirtazapine Oral Disintegrating Tablet) 15 Mg Tab, 2 TAB PO QPM, #30 TAB 3 Refills 04/25/18 Aspirin (Aspirin) 325 Mg Tab, 325 MG PO DAILY for 30 Days, MG 04/25/18 Levothyroxine Sodium (Levothyroxine Sodium) 25 Mcg Tab, 75 MCG PO QAM, MCG 05/06/16 Information Source: Patient Mode of Arrival: Ambulatory Severity: Moderate Timing: Days Duration: Intermittent Prehospital treatment: None Past Medical History PAST MEDICAL HISTORY: Anemia, Anxiety, Asthma, COPD, CVA, DM, High Lipids, HTN, Seizures, Thyroid Surgical History: , Hysterectomy SKIP PIT WORKER History: No Pertinent SKIP PIT WORKER History Family History Family History: Reviewed,noncontributory to illness, Family hx of DM Social History Smoker: Non-Smoker Alcohol: Denies ETOH Use Drugs: Denies Drug Use Lives In: Home Constitutional: denies: chills, diaphoresis, fatigue, fever, malaise, sweats, weakness, others EENTM: denies: blurred vision, double vision, ear bleeding, ear discharge, ear drainage, ear pain, ear ringing, eye pain, eye redness, hearing loss, mouth pain, mouth swelling, nasal discharge, nose bleeding, nose congestion, nose pain, photophobia, tearing, throat pain, throat swelling, voice changes, others Respiratory: denies: cough, hemoptysis, orthopnea, SOB at rest, shortness of breath, SOB with excertion, stridor, wheezing, others Cardiovascular: reports: others (HIGH BLOOD PRESSURE); denies: chest pain, dizzy spells, diaphoresis, Dyspnea on exertion, edema, irregular heart beat, left arm pain, lightheadedness, palpitations, PND, syncope Gastrointestinal: denies: abdomen distended, abdominal pain, blood streaked bowels, constipated, diarrhea, dysphagia, difficulty swallowing, hematemesis, melena, nausea, poor appetite, poor fluid intake, rectal bleeding, rectal pain, vomiting, others Genitourinary: denies: abnormal vagina bleeding, burning, dyspareunia, dysuria, flank pain, frequency, hematuria, incontinence, pain, , vagina discharge, urgency, others Neurological: reports: seizure; denies: dizziness, fainting, headache, left sided numbness, left sided weakness, numbness, paresthesia, pre-existing deficit, right sided numbness, right sided weakness, speech problems, tingling, tremors, weakness, others Musculoskeletal: denies: back pain, gout, joint pain, joint swelling, muscle pain, muscle stiffness, neck pain, others Integumetry: denies: bruises, change in color, change in hair/nails, dryness, laceration, lesions, lumps, rash, wounds, others Allergic/Immunocompromised: denies: Difficulty Healing, Frequent Infections, Hives, Itching, others Hematologic/Lymphatic: denies: anemia, blood clots, easy bleeding, easy bruising, swollen glands, others Endocrine: denies: excessive hunger, excessive sweating, excessive thirst, excessive urination, flushing, intolerance to cold, intolerance to heat, unexplained weight gain, unexplained weight loss, others Psychiatric: denies: anxiety, bipolar disorder, depression, hopeless, panic disorder, schizophrenia, sleepless, suicidal, others All Other Systems: Reviewed and Negative Physical Exam General Appearance: No Apparent Distress (Patient was in no distress at time of evaluation.), Normal HEENT: Head (Unremarkable cranial evaluation. No signs of trauma. No skull depressions or deformities.), Normal ENT Inspection, Pharynx Normal, TMs Normal Neck: Full Range of Motion, Non-Tender, Normal, Normal Inspection Respiratory: Chest Non-Tender, Lungs Clear, No Accessory Muscle Use, No Respiratory Distress, Normal Breath Sounds Cardiovascular: No Edema, No JVD, No Murmur, No Gallop, Normal Peripheral Pulses, Regular Rate/Rhythm Breast Exam: Deferred Gastrointestinal: No Organomegaly, Non Tender, No Pulsatile Mass, Normal Bowel Sounds, Soft Genitalia: Deferred Pelvic: Deferred Rectal: Deferred Extremities: No calf tenderness, Normal capillary refill, Normal inspection, No rmal range of motion, Non-tender, No pedal edema Musculoskeletal : Apperance: Normal Neurologic: Alert, No Motor Deficits, Normal Affect, Normal Mood, No Sensory Deficits Cerebellar Function: Normal Reflexes: Normal Skin: Dry, Normal Color, Warm Lymphatic: No Adenopathy Was a procedure done? Was a procedure done?: No Differential Dx Considerations may include: Sepsis, electrolyte abnormality, urinary tract infection, recurrent seizures, hypertension X-Ray, Labs, Meds, VS Vital Signs Date Time Temp Pulse Resp B/P (MAP) Pulse Ox O2 Delivery O2 Flow Rate FiO2 04/13/25 13:13 98.5 71 18 121/72 98 98.5 Lab Test 04/13/25 13:35 Range/Units White Blood Count 6.2 4.4-10.8 10^3/uL Red Blood Count 4.13 4.0-5.20 10^6/uL Hemoglobin 12.3 12.2-16.2 g/dL Hematocrit 36.9 36.0-46.0 % Mean Corpuscular Volume 89.5 80.0-100.0 fL Mean Corpuscular Hemoglobin 29.9 28.0-32.0 pg Mean Corpuscular Hemoglobin Concent 33.4 32.0-36.0 g/dL Red Cell Distribution Width 15.2 H 11.8-14.3 % Platelet Count 264 140-450 10^3/uL Mean Platelet Volume 7.4 6.9-10.8 fL Neutrophils (%) (Auto) 70.9 37.0-80.0 % Lymphocytes (%) (Auto) 21.2 10.0-50.0 % Monocytes (%) (Auto) 6.5 0.0-12.0 % Eosinophils (%) (Auto) 0.8 0.0-7.0 % Basophils (%) (Auto) 0.6 0.0-2.0 % Neutrophils # (Auto) 4.4 1.6-8.6 10 ^3/uL Lymphocytes # (Auto) 1.3 0.4-5.4 10 ^3/uL Monocytes # (Auto) 0.4 0-1.3 10 ^3/uL Eosinophils # (Auto) 0.1 0-0.8 10 ^3/uL Basophils # (Auto) 0 0-0.2 10 ^3/uL Nucleated Red Blood Cells 0.1 % Sodium Level 142 136-145 mmol/L Potassium Level 3.6 3.5-5.1 mmol/L Chloride Level 108 H 98-107 mmol/L Carbon Dioxide Level 23 20-31 mmol/L Anion Gap 11 5-15 Blood Urea Nitrogen 8 L 9-23 mg/dL Creatinine 0.77 0.550-1.02 mg/dL Glomerular Filtration Rate Calc 88 >90 mL/min BUN/Creatinine Ratio 10.4 10.0-20.0 Serum Glucose 96 74-106 mg/dL Calcium Level 9.2 8.7-10.4 mg/dL Troponin I High Sensitivity < 3 L </=34 ng/L X-Ray, Labs, Meds, VS Comment All studies performed the ED were evaluated by me personally. Initial serum laboratories were unremarkable for any systemic concerns. We waited for some time to collect urine and I had multiple tax try to locate the patient in the lobby. Additionally, I contacted Neurology to do an evaluation on the patient due to the fact that she states she continues to have seizures even though she is being followed by Neurology and medicated. After several attempts, It appears the patient has eloped from the facility. Time of 1ST Reevaluation: 16:07 Reevaluation 1ST: Unchanged Consultation: PCP Patient Education/Counseling: Diagnosis, Treatment, Need For Follow Up Family Education/Counseling: Diagnosis, Treatment, No Family Present SEPSIS Sepsis Screen Recent Procedure: No On Antibiotic Therapy: No Respiratory Rate >20: No Heart Rate >90: No Temp<36 C (96.8 F) or >38.3 C: No SBP <90 or MAP <65 mmHG: No New Acute Mental Status Change: No Is the patient on CPAP, BIPAP,: No Physician Orders Urinalysis (04/13/25 13:19) Electrocardigram (04/13/25 13:19) Troponin-I Hs (04/13/25 14:19) Troponin-I Hs (04/13/25 16:19) *Consult Dr. Rianna Pan (04/13/25 13:19) Vital Signs Date Time Temp Pulse Resp B/P (MAP) Pulse Ox O2 Delivery O2 Flow Rate FiO2 04/13/25 13:13 98.5 71 18 121/72 98 98.5 Laboratory Tests Test 04/13/25 13:35 White Blood Count 6.2 10^3/uL (4.4-10.8) Departure 1 Departure Time of Disposition: 16:08 Impression: Primary Impression: Elevated blood pressure reading Disposition: 07 LEFT AWOL/ELOPED Condition: Stable Discharged With: Self Critical Care Note Critical Care Time?: No Stability Stability form required: No Heart Score Heart Score: Heart Score Response (Comments) Value History N/A 0 EKG N/A 0 Age N/A 0 Risk Factors N/A 0 Troponin N/A 0 Total 0 I personally scribed for LAUREL LYNN PAC ([email or web address]) on 04/13/25 at 13:19. Electronically submitted by Farrukh Perez ([email or web address]). LAUREL LYNN PAC Apr 13, 2025 13:19
[2025-04-13 13:57] LABS: Hematocrit 36.9 % (36.0-46.0); Hemoglobin 12.3 g/dL (12.2-16.2); Mean Corpuscular Hemoglobin 29.9 pg (28.0-32.0); Mean Corpuscular Volume 89.5 fL (80.0-100.0); Nucleated Red Blood Cells % 0.1 %
[2025-04-13 14:05] LABS: Anion Gap 11 (5-15); Carbon Dioxide 23 mmol/L (20-31); Potassium 3.6 mmol/L (3.5-5.1); Sodium 142 mmol/L (136-145)
[2025-04-13 14:06] LABS: Calcium 9.2 mg/dL (8.7-10.4); Chloride 108 mmol/L (98-107)
[2025-04-13 14:11] LABS: BUN/Creatinine Ratio 10.4 (10.0-20.0); Blood Urea Nitrogen 8 mg/dL (9-23); Glucose 96 mg/dL (74-106)
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
== END 2025-04-13 16:09 | disposition left against medical advice (07) ==
LOC: ER 13:13
DX: R03.0 Elevated blood-pressure reading, without diagnosis of hypertension (principal); F41.9 Anxiety disorder, unspecified; E78.5 Hyperlipidemia, unspecified; E11.9 Type 2 diabetes mellitus without complications; Z90.710 Acquired absence of both cervix and uterus; Z86.73 Personal history of transient ischemic attack (TIA), and cerebral infarction without residual deficits; Z88.0 Allergy status to penicillin; Z79.899 Other long term (current) drug therapy
CPT/HCPCS: 36415; 80048; 82947; 84484; 85025

== ENCOUNTER 2025-04-21 07:25 | Emergency (ER) | payer MEDICAID ==
[~2025-04-21] VITALS: Ht 177.8 cm; Wt 86.5 kg
--- NOTE | 2025-04-21 07:50 | ED.PDOC ---
HPI (NEURO) HPI Comments This is a 59 year old female DEQUAN presenting to the ED with chief complaint of seizures. Patient reports that she suffers from "grand mal" seizures, however, she notes she has only been tremulous since this morning, which is how her seizures present. Patient denies any headache, dizziness, syncope, chest pain, or SOB. Chief Complaint: Tremors Time Seen by MD: 07:48 Primary Care Provider: BETSY Figueredo Notes: Nurses Notes, Correctional Casework Specialist Notes, Medications, Allergies Information Source: Patient, Emergency Med Personnel Mode of Arrival: EMS Severity: Moderate Timing: Hours Duration: Since onset Prehospital treatment: None Seizure Quality: Shaking, Mulitple Episodes Seizure Location: Generalized Onset: At rest Circumstances: Spontaneous History of: Seizure Disorder Past Medical History PAST MEDICAL HISTORY: Anemia, Anxiety, Asthma, COPD, CVA, DM, High Lipids, HTN, Seizures, Thyroid Surgical History: , Hysterectomy LIFT OPERATOR History: No Pertinent LIFT OPERATOR History Family History Family History: Reviewed,noncontributory to illness, Family hx of DM Social History Smoker: Non-Smoker Alcohol: Denies ETOH Use Drugs: Denies Drug Use Lives In: Home Constitutional: denies: chills, diaphoresis, fatigue, fever, malaise, sweats, weakness, others EENTM: denies: blurred vision, double vision, ear bleeding, ear discharge, ear drainage, ear pain, ear ringing, eye pain, eye redness, hearing loss, mouth p ain, mouth swelling, nasal discharge, nose bleeding, nose congestion, nose pain, photophobia, tearing, throat pain, throat swelling, voice changes, others Respiratory: denies: cough, hemoptysis, orthopnea, SOB at rest, shortness of br eath, SOB with excertion, stridor, wheezing, others Cardiovascular: denies: chest pain, dizzy spells, diaphoresis, Dyspnea on exertion, edema, irregular heart beat, left arm pain, lightheadedness, palpitations, PND, syncope, others Gastrointestinal: denies: abdomen distended, abdominal pain, blood streaked bowels, constipated, diarrhea, dysphagia, difficulty swallowing, hematemesis, melena, nausea, poor appetite, poor fluid intake, rectal bleeding, rectal pain, vomiting, others Genitourinary: denies: abnormal vagina bleeding, burning, dyspareunia, dysuria, flank pain, frequency, hematuria, incontinence, pain, , vagina discharge, urgency, others Neurological: reports: seizure, tremors; denies: dizziness, fainting, headache, left sided numbness, left sided weakness, numbness, paresthesia, pre-existing deficit, right sided numbness, right sided weakness, speech problems, tingling, weakness, others Musculoskeletal: denies: back pain, gout, joint pain, joint swelling, muscle pain, muscle stiffness, neck pain, others Integumetry: denies: bruises, change in color, change in hair/nails, dryness, laceration, lesions, lumps, rash, wounds, others Allergic/Immunocompromised: denies: Difficulty Healing, Frequent Infections, Hives, Itching, others Hematologic/Lymphatic: denies: anemia, blood clots, easy bleeding, easy bruising, swollen glands, others Endocrine: denies: excessive hunger, excessive sweating, excessive thirst, excessive urination, flushing, intolerance to cold, intolerance to heat, unexplained weight gain, unexplained weight loss, others Psychiatric: denies: anxiety, bipolar disorder, depression, hopeless, panic disorder, schizophrenia, sleepless, suicidal, others All Other Systems: Reviewed and Negative Physical Exam General Appearance: No Apparent Distress, Normal HEENT: Normal ENT Inspection, Pharynx Normal, TMs Normal Neck: Full Range of Motion, Non-Tender, Normal, Normal Inspection Respiratory: Chest Non-Tender, Lungs Clear, No Accessory Muscle Use, No Respiratory Distress, Normal Breath Sounds Cardiovascular: No Edema, No JVD, No Murmur, No Gallop, Normal Peripheral Pulses, Regular Rate/Rhythm Breast Exam: Deferred Gastrointestinal: No Organomegaly, Non Tender, No Pulsatile Mass, Normal Bowel Sounds, Soft Genitalia: Deferred Pelvic: Deferred Rectal: Deferred Extremities: No calf tenderness, Normal capillary refill, Normal inspection, Normal range of motion, Non-tender, No pedal edema Musculoskeletal : Apperance: Normal Neurologic: Alert, qa tech II-XII nml as Tested, No Motor Deficits, Normal Affect, Normal Mood, No Sensory Deficits Cerebellar Function: Normal Reflexes: Normal Skin: Dry, Normal Color, Warm Lymphatic: No Adenopathy Was a procedure done? Was a procedure done?: No X-Ray, Labs, Meds, VS Vital Signs Date Time Temp Pulse Resp B/P (MAP) Pulse Ox O2 Delivery O2 Flow Rate FiO2 04/21/25 10:04 79 16 122/74 (90) 98 04/21/25 08:05 77 04/21/25 08:05 75 21 99 Room Air* 0 21 04/21/25 08:05 98.2 75 21 129/71 (90) 99 98.2 04/21/25 07:36 98.6 80 18 138/71 99 98.6 Lab Test 04/21/25 09:04 04/21/25 08:10 Range/Units Urine Color Light-yellow Yellow Urine Clarity Clear Clear Urine pH 8.5 5.0-9.0 Urine Specific [place] 1.022 1.001-1.035 Urine Protein 1+ H Negative Urine Ketones Trace Negative Urine Blood Negative Negative /uL Urine Nitrite Negative Negative Urine Bilirubin Negative Negative Urine Urobilinogen Normal Negative mg/dL Urine Leukocyte Esterase 1+ Negative /uL Urine RBC 3 0 - 4 /hpf Urine Microscopic WBC 6 H 0-5 /HPF Urine Squamous Epithelial Cells Few <5 /hpf Urine Bacteria Few H None Seen /hpf Urine Mucus Few None Seen Urine Glucose Normal Normal mg/dL Urine Opiates Screen Neg NEGATIVE Urine Fentanyl Screen Neg NEGATIVE Urine Barbiturates Screen Neg NEGATIVE Urine Phencyclidine Screen Neg NEGATIVE Urine Amphetamines Screen Neg NEGATIVE Urine Benzodiazepines Screen Neg NEGATIVE Urine Cocaine Screen Neg NEGATIVE Urine Cannabinoids Screen Neg NEGATIVE White Blood Count 7.9 4.4-10.8 10^3/uL Red Blood Count 4.71 4.0-5.20 10^6/uL Hemoglobin 14.1 12.2-16.2 g/dL Hematocrit 42.2 36.0-46.0 % Mean Corpuscular Volume 89.6 80.0-100.0 fL Mean Corpuscular Hemoglobin 30.0 28.0-32.0 pg Mean Corpuscular Hemoglobin Concent 33.5 32.0-36.0 g/dL Red Cell Distribution Width 14.8 H 11.8-14.3 % Platelet Count 277 140-450 10^3/uL Mean Platelet Volume 7.6 6.9-10.8 fL Neutrophils (%) (Auto) 85.2 H 37.0-80.0 % Lymphocytes (%) (Auto) 10.9 10.0-50.0 % Monocytes (%) (Auto) 2.8 0.0-12.0 % Eosinophils (%) (Auto) 0.5 0.0-7.0 % Basophils (%) (Auto) 0.6 0.0-2.0 % Neutrophils # (Auto) 6.8 1.6-8.6 10 ^3/uL Lymphocytes # (Auto) 0.9 0.4-5.4 10 ^3/uL Monocytes # (Auto) 0.2 0-1.3 10 ^3/uL Eosinophils # (Auto) 0 0-0.8 10 ^3/uL Basophils # (Auto) 0 0-0.2 10 ^3/uL Nucleated Red Blood Cells 0.0 % Sodium Level 143 136-145 mmol/L Potassium Level 3.7 3.5-5.1 mmol/L Chloride Level 107 98-107 mmol/L Carbon Dioxide Level 22 20-31 mmol/L Anion Gap 14 5-15 Blood Urea Nitrogen 8 L 9-23 mg/dL Creatinine 0.87 0.550-1.02 mg/dL Glomerular Filtration Rate Calc 76 >90 mL/min BUN/Creatinine Ratio 9.2 L 10.0-20.0 Serum Glucose 98 74-106 mg/dL Calcium Level 9.7 8.7-10.4 mg/dL Total Bilirubin 0.4 0.2-1.0 mg/dL Aspartate Amino Transferase (AST) 20 13-40 U/L Alanine Aminotransferase (ALT) 12 7-40 U/L Alkaline Phosphatase 104 46-116 U/L Total Protein 7.4 5.7-8.2 g/dL Albumin 5.0 H 3.2-4.8 g/dL Current Medications Medications (Trade) Dose Ordered Sig/Noé Route Start Time Stop Time Status Last Admin Lorazepam (Ativan Inj) 0.5 mg ONCE ONCE IV 04/21/25 08:00 04/21/25 08:01 DC 04/21/25 08:09 Ondansetron HCl (Zofran) 4 mg ONCE ONCE IV 04/21/25 08:15 04/21/25 08:16 DC 04/21/25 08:09 Ketorolac Tromethamine (Toradol Injection) 30 mg ONCE ONCE IV 04/21/25 09:00 04/21/25 09:01 DC 04/21/25 09:00 X-Ray, Labs, Meds, VS Comment This 59-year-old female presents to emergency room secondary to grand mal seizure. The patient was having a discussion with the when she stated "Oh Lord, look, I'm having a Grand Mal Seizure". Fortunately, the patient had shaking bilateral hands that resolved with distraction. There were no other findings during workup accept a UTI for which she was discharged home on Macrobid. She denies having any findings suggestive of having hemogram seizure during this visit. As such, workup for grand mal seizure was not done. The patient is discharged home. She would follow up with the PCP in next one two days return to the ER for new/worrisome/worsening symptoms. She states her understanding. Time of 1ST Reevaluation: 08:47 Reevaluation 1ST: Unchanged Patient Education/Counseling: Diagnosis, Treatment Family Education/Counseling: No Family Present Departure 1 Departure Time of Disposition: 11:05 Impression: Primary Impression: UTI (urinary tract infection) Disposition: 01 HOME / SELF CARE / HOMELESS Condition: Good Discharged With: Self Critical Care Note Critical Care Time?: No Stability Stability form required: No Heart Score Heart Score: Heart Score Response (Comments) Value History N/A 0 EKG N/A 0 Age N/A 0 Risk Factors N/A 0 Troponin N/A 0 Total 0 I personally scribed for NGOC LEPE MD ([email or web address]) on 04/21/25 at 07:50. Electronically submitted by Fish Narayanan ([email or web address]). NGOC LEPE MD Apr 21, 2025 07:50
[2025-04-21 08:05] VITALS: PULSE 75; RESP 21; O2SAT 99
[2025-04-21] MEDS: LORazepam 2MG/ML-1ML VIAL IV ONE (08:09)
[2025-04-21] MEDS: ONDANSETRON HCL 4 MG/2 ML VIAL IV ONE ×2 (08:09→11:09)
[2025-04-21 08:46] LABS: Alanine Aminotransferase 12 U/L (7-40); Alkaline Phosphatase 104 U/L (46-116); Anion Gap 14 (5-15); BUN/Creatinine Ratio 9.2 (10.0-20.0); Bilirubin, Total 0.4 mg/dL (0.2-1.0); Calcium 9.7 mg/dL (8.7-10.4); Carbon Dioxide 22 mmol/L (20-31); Glucose 98 mg/dL (74-106); Potassium 3.7 mmol/L (3.5-5.1); Sodium 143 mmol/L (136-145); Total Protein 7.4 g/dL (5.7-8.2)
[2025-04-21 08:48] LABS: Albumin 5.0 g/dL (3.2-4.8); Blood Urea Nitrogen 8 mg/dL (9-23); Chloride 107 mmol/L (98-107)
[2025-04-21 08:56] LABS: Hematocrit 42.2 % (36.0-46.0); Hemoglobin 14.1 g/dL (12.2-16.2); Mean Corpuscular Hemoglobin 30.0 pg (28.0-32.0); Mean Corpuscular Volume 89.6 fL (80.0-100.0); Nucleated Red Blood Cells % 0.0 %
[2025-04-21] MEDS: KETOROLAC TROMETH 30 MG/ML 1ML VIAL IV ONE (09:00)
[2025-04-21 10:15] LABS: Opiate Scree,Urine Neg (NEGATIVE)
[2025-04-21 10:30] LABS: Amphetamine Screen, Urine Neg (NEGATIVE); Barbiturate Scree,Urine Neg (NEGATIVE); Benzodiazephine Screen, Urine Neg (NEGATIVE); Phencyclidine Screen, Urine Neg (NEGATIVE)
[2025-04-21 10:31] LABS: Cannabinoid Screen, Urine Neg (NEGATIVE); Cocaine Screen, Urine Neg (NEGATIVE)
[2025-04-21 10:33] LABS: Urine Protein, UAD 1+ (Negative)
[2025-04-21 11:05] VITALS: BP 125/81; PULSE 79; RESP 16; TEMP 98.3; O2SAT 99
[2025-04-21] MEDS ORDERED: NITR-87 PO (11:07)
[2025-04-21] MEDS ORDERED: ZOFR4T PO (11:41)
== END 2025-04-21 11:45 | disposition home or self-care (01) ==
LOC: ER 07:25 → EDBD 07:25 → ER 11:45
DX: N39.0 Urinary tract infection, site not specified (principal); F41.9 Anxiety disorder, unspecified; J45.909 Unspecified asthma, uncomplicated; E11.9 Type 2 diabetes mellitus without complications; I10 Essential (primary) hypertension; J44.89 Other specified chronic obstructive pulmonary disease; Z86.73 Personal history of transient ischemic attack (TIA), and cerebral infarction without residual deficits; Z90.710 Acquired absence of both cervix and uterus; Z98.890 Other specified postprocedural states
CPT/HCPCS: 36415; 80053; 80307; 81001; 85025; 96374; 96375; 96376; 99284; J1885; J2060; J2405

== ENCOUNTER 2025-05-30 13:06 | Emergency (ER) | payer MEDICAID ==
[~2025-05-30] VITALS: Ht 170.2 cm; Wt 81.1 kg
[~2025-05-30 13:06] MED LIST changes: +NITR-87 PO; +ZOFR4T PO
[2025-05-30] MEDS: HYDROcodone-ACET 10/325MG TAB PO ONE (14:08)
--- NOTE | 2025-05-30 14:12 | ED.PDOC ---
Musculoskeletal HPI Comments A 59 YEAR OLD FEMALE PRESENTS TO THE ED WITH COMPLAINT OF RIGHT SHOULDER PAIN. PATIENT REPORTS THAT SHE HAD BEEN MOVING HER BED THIS MORNING WHEN SHE LOST HER FOOTING AND FELL, LANDING ON HER RIGHT SHOULDER. PATIENT RELAYS THAT SHE HAS NOW BEEN EXPERIENCING RIGHT SHOULDER PAIN SINCE THE FALL. PATIENT DENIES HEAD INJURY , NUMBNESS, WEAKNESS, TINGLING, SHORTNESS OF BREATH, CHEST PAIN, ABDOMINAL PAIN, NAUSEA, VOMITING, HEADACHE, OR OTHER COMPLAINTS. NO OTHER SYMPTOMS OR MODIFYING FACTORS AT THIS TIME. PATIENT IS ALERT, ORIENTED X 4, AND HAS STEADY GAIT. Chief Complaint: Upper Extremity Time Seen by MD: 14:10 Primary Care Provider: BETSY Reviewed Notes: Nurses Notes, Medications, Allergies Allergies: Coded Allergies: Valproic Acid (Verified Allergy, Mild, 10/23/19) Haloperidol (Verified Allergy, Unknown, 10/23/19) Penicillins (Verified Allergy, Unknown, 10/23/19) Home Meds Active Scripts Hydrocodone-Acetaminophen (Hydrocodone Bitartrate/AC 10-325 mg) 1 Tab Tab, 1 TAB PO TID, #15 TAB Prov:HIRAL COHEN 05/30/25 Ondansetron Odt 4MG Tab (ZOFRAN PO) 4 Mg Tb, 4 MG PO QIDPRN PRN, #30 TAB ODT TAB-DISSOLVE IN MOUTH, THEN SWALLOW Prov:NGOC LEPE MD 04/21/25 Nitrofurantoin Monohydrate Mac (Macrobid) 100 Mg Cap, 100 MG PO BID, #14 CAP Prov:NGOC LEPE MD 04/21/25 Tobramycin Sulfate (Tobrex) [address], 2 DROP OP QID, #5 ML Prov:HIRAL COHEN 03/09/25 Lorazepam (Lorazepam) 1 Mg Tab, 1 TAB PO BID for 10 Days, #20 TAB Prov:CAMILO MAY MD 01/24/25 Cefdinir (Cefdinir) 300 Mg Cap, 1 CAP PO BID for 7 Days, #14 CAP Prov:CAMILO MAY MD 01/24/25 Ibuprofen Micronized (Ibuprofen) 800 Mg Tab, 800 MG PO TID for 14 Days, #42 TAB 0 Refills Prov:RAFIA ESCUDERO NP 07/03/24 Clindamycin Hcl (Clindamycin Hcl) 300 Mg Cap, 300 MG PO TID for 7 Days, #21 CAP Prov:KARISSAHIGINIO PINA DO 05/02/24 Methocarbamol (Methocarbamol) 750 Mg Tab, 750 MG PO BID, #20 TAB Prov:HIRAL COHEN 05/12/23 Hydrocodone-Acetaminophen (Hydrocodone Bitartrate/AC 5-325 mg) 1 Tab Tab, 1 TAB PO BID, #14 TAB Prov:HIRAL COHEN 04/29/23 Albuterol Sulfate (Ventolin) 2.5 Mg/0.5 Ml Nb, 1 VIAL NEB Q4HR, #60 VIAL 1 Refill Prov:HIRAL COHEN 03/19/23 Promethazine-Dm (Promethazine Dm 6.25-15 mg/5Ml) 1 Lucy Lucy, 5 ML PO TID, #160 ML Prov:HIRAL COHEN 03/19/23 Levofloxacin (Levaquin 750 mg) 750 Mg Tab, 1 TAB PO DAILY for 7 Days, #7 TAB 0 Refills Prov:[facility] SC[facility] 03/17/23 Azithromycin (Zithromax Z-Jatin) 250 Mg Tab, 250 MG PO DAILY for 5 Days, #6 TAB 0 Refills Z-Jatin as directed Prov:GM SCALES [facility] 03/17/23 Ibuprofen Micronized (MOTRIN TABLET) 600 Mg Tb, 600 MG PO TID PRN for 5 Days, #15 TAB *Black box warning-NSAIDS can increase risk of [place] & hypertension, GI irritation, ulceration, bleed, perferation. Do not use post cardiac surgery. Use short duration/lowest effective dose. Prov:ELANA BURGER MD 09/21/22 Acetaminophen (Tylenol 8 Hour Arthritis) 650 Mg Tab, 650 MG PO TID, #30 TAB Prov:HIRAL COHEN 03/04/22 Gabapentin (Gabapentin) 300 Mg Cap, 900 MG PO TID, #180 CAP Prov:TRENTON PETERS MD 05/14/21 Reported Medications Ferrous Sulfate (Ferrous Sulfate) 325 Mg Tab, 325 MG PO QDPC for 30 Days, MG 09/15/19 Ergocalciferol (VITAMIN D2) 400 Unit Tab, 400 UNIT PO, TAB 09/15/19 Ertugliflozin l-Pyroglutamic A (Steglatro) 5 Mg Tab, 5 MG PO DAILY, TAB 09/15/19 Lamotrigine (Lamictal) 100 Mg Tab, 1 TAB PO BID, #60 TAB 1 Refill 09/15/19 Metformin Hydrochloride (Metformin Hcl) 500 Mg Tab 06/22/19 Hydrocodone-Acetaminophen (Hydrocodone Bitartrate/AC 10-325 mg) 1 Tab Tab 06/22/19 Lamotrigine (Lamotrigine) 25 Mg Tab, 50 MG PO BID, TAB 09/12/18 Atorvastatin Calcium (ATORVASTATIN CALCIUM) 80 Mg Tab, 1 TAB PO HS, #30 TAB 5 Refills 09/12/18 Eslicarbazepine Acetate (Aptiom) 800 Mg Tab, 1600 MG PO DAILY, TAB 04/25/18 Mirtazapine (Mirtazapine Oral Disintegrating Tablet) 15 Mg Tab, 2 TAB PO QPM, #30 TAB 3 Refills 04/25/18 Aspirin (Aspirin) 325 Mg Tab, 325 MG PO DAILY for 30 Days, MG 04/25/18 Levothyroxine Sodium (Levothyroxine Sodium) 25 Mcg Tab, 75 MCG PO QAM, MCG 05/06/16 Information Source: Patient Mode of Arrival: Ambulatory Location: Right Extremity Location: Shoulder Timing: Hours Prehospital treatment: None Severity: Moderate Able to Move Extremity: No Bear Weight: Limited Pain: Moderate Mechanism: Blunt Trauma Circumstances: Fall Onset of Symptoms: After Trauma Symptoms: Swelling, Pain DVT Risk Factors: NONE Last Tetanus: Unknown Associated signs and symptoms: Shoulder pain Past Medical History PAST MEDICAL HISTORY: Anemia, Anxiety, Asthma, COPD, CVA, DM, High Lipids, HTN, Seizures, Thyroid Surgical History: , Hysterectomy STEAM BLOCKER History: No Pertinent STEAM BLOCKER History Family History Family History: Reviewed,noncontributory to illness, Family hx of DM Social History Smoker: Non-Smoker Alcohol: Denies ETOH Use Drugs: Denies Drug Use Lives In: Home Constitutional: reports: others (ANXIETY ); denies: chills, diaphoresis, fatigue, fever, malaise, sweats, weakness EENTM: denies: blurred vision, double vision, ear bleeding, ear discharge, ear drainage, ear pain, ear ringing, eye pain, eye redness, hearing loss, mouth pain, mouth swelling, nasal discharge, nose bleeding, nose congestion, nose pain, photophobia, tearing, throat pain, throat swelling, voice changes, others Respiratory: denies: cough, hemoptysis, orthopnea, SOB at rest, shortness of breath, SOB with excertion, stridor, wheezing, others Cardiovascular: denies: chest pain, dizzy spells, diaphoresis, Dyspnea on exertion, edema, irregular heart beat, left arm pain, lightheadedness, palpitations, PND, syncope, others Gastrointestinal: denies: abdomen distended, abdominal pain, blood streaked bowels, constipated, diarrhea, dysphagia, difficulty swallowing, hematemesis, melena, nausea, poor appetite, poor fluid intake, rectal bleeding, rectal pain, vomiting, others Genitourinary: denies: abnormal vagina bleeding, burning, dyspareunia, dysuria, flank pain, frequency, hematuria, incontinence, pain, , vagina discharge, urgency, others Neurological: denies: dizziness, fainting, headache, left sided numbness, left sided weakness, numbness, paresthesia, pre-existing deficit, right sided numbnes s, right sided weakness, seizure, speech problems, tingling, tremors, weakness, others Musculoskeletal: reports: joint pain, joint swelling, others (RIGHT SHOULDER PAIN); denies: back pain, gout, muscle pain, muscle stiffness, neck pain Integumetry: denies: bruises, change in color, change in hair/nails, dryness, laceration, lesions, lumps, rash, wounds, others Allergic/Immunocompromised: denies: Difficulty Healing, Frequent Infections, Hives, Itching, others Hematologic/Lymphatic: denies: anemia, blood clots, easy bleeding, easy bruising, swollen glands, others Endocrine: denies: excessive hunger, excessive sweating, excessive thirst, excessive urination, flushing, intolerance to cold, intolerance to heat, unexpl ained weight gain, unexplained weight loss, others Psychiatric: denies: anxiety, bipolar disorder, depression, hopeless, panic disorder, schizophrenia, sleepless, suicidal, others All Other Systems: Reviewed and Negative Physical Exam General Appearance: No Apparent Distress, Normal, Other (ANXIOUS ) HEENT: Normal ENT Inspection, Pharynx Normal, TMs Normal Neck: Full Range of Motion, Non-Tender, Normal, Normal Inspection Respiratory: Chest Non-Tender, Lungs Clear, No Accessory Muscle Use, No Respiratory Distress, Normal Breath Sounds Cardiovascular: No Edema, No JVD, No Murmur, No Gallop, Normal Peripheral Pulses, Regular Rate/Rhythm Breast Exam: Deferred Gastrointestinal: No Organomegaly, Non Tender, No Pulsatile Mass, Normal Bowel Sounds, Soft Genitalia: Deferred Pelvic: Deferred Rectal: Deferred Extremities: Decreased range of motion, No calf tenderness, Normal capillary refill, No pedal edema, Swelling (BONY TENDERNESS AND SWELLING ON RIGHT ANTERIOR SHOULDER, NO DEFORMITY. ), Tender (BONY TENDERNESS AND SWELLING ON RIGHT ANTERIOR SHOULDER AND UPPER ARM, NO DEFORMITY, NEUROVASCULAR INTACT. ) Musculoskeletal : Apperance: Normal Neurologic: Alert, slot floor attendant II-XII nml as Tested, No Motor Deficits, Normal Affect, Normal Mood, No Sensory Deficits Cerebellar Function: Normal Reflexes: Normal Skin: Dry, Normal Color, Warm Peripheral Pulses: 2+ carotid (R), 2+ carotid (L), 2+ Radial (R), 2+ Radial (L) Lymphatic: No Adenopathy Was a procedure done? Was a procedure done?: No Sedation Sedation?: No Other Procedure Procedure SPLINT APPLIED TO RIGHT UPPER ARM/SHOULDER Indication FRACTURE OF RIGHT HUMERAL NECK Success PATIENT'S ARM SUCCESSFULLY SPLINTED. Informed consent obtained: No Risks, benefits, and alternati: Yes Differential Diagnosis EXT Differential Diagnosis: Fracture, Sprain, Dislocation, Contusion, Strain X-Ray, Labs, Meds, VS Vital Signs Date Time Temp Pulse Resp B/P (MAP) Pulse Ox O2 Delivery O2 Flow Rate FiO2 05/30/25 13:10 97.2 89 18 108/52 99 97.2 Current Medications Medications (Trade) Dose Ordered Sig/Noé Route Start Time Stop Time Status Last Admin Acetaminophen/ Hydrocodone Bitart (Beverly 10/325MG Tab) 1 tab ONCE ONCE PO 05/30/25 14:00 05/30/25 14:01 DC 05/30/25 14:08 PATIENT: LUDY ARMSTRONG AACCT: [id number]: [id number] : 1965 LOC: ER ROOM / BED: / AGE / SEX: 59 / F ADM STATUS: REG ER SERVICE [id number] ORDERING PHYSICIAN: HIRAL COHEN PROCEDURE(s): RSHD2 - R SHOULDER 2+ VIEW XRAY REASON: FALL ORDER NUMBER(s): [id number], ACCESSION NUMBER(s): [id number] CLINICAL INDICATION: Pain; FALL TECHNIQUE: 3 radiographic views of the right shoulder were obtained. Comparison: XY R SHOULDER 2+ VIEW XRAY on DOS: 04/29/23, XY R ELBOW 3 VIEW XRAY on DOS: 04/29/23 FINDINGS/IMPRESSION: Mildly displaced fracture of the right humeral neck. ATED BY: KAE GREENE MD DICTATED DATE/TIME: 05/30/251424 SIGNED BY: KAE GREENE MD SIGNED DATE/TIME: 05/30/251424 CC: X-Ray, Labs, Meds, VS Comment EXTERNAL MEDICAL RECORDS REVIEWED: [NONE] INDEPENDENT HISTORIANS: [NONE] SOCIAL DETERMINANTS OF HEALTH: [NONE] LABS ORDERED: NONE REVIEWED AND INTERPRETED RESULTS: RT SHOULDER XR IMAGING ORDERED: RT SHOULDER XR TREATMENTS ORDERED: NORCO 10/325MG PO, SPLINT AND ARM SLING ON RIGHT SHOULDER. PROCEDURES PERFORMED: NONE CRITICAL CARE TIME: NONE I HAVE DISCUSSED THE PATIENT WITH THE ATTENDING PHYSICIAN, DR. LOMBARDO, HE AGREES WITH THE PATIENT'S PLAN OF CARE AND DISPOSITION, ADVISING PATIENT TO FOLLOW UP WITH PCP FOR REFERRAL TO ORTHO. BASED ON HISTORY OF PRESENT ILLNESS, AND PHYSICAL EXAM, PATIENT WILL BE DISCHARGED HOME. DISCUSSED PLAN FOR DISCHARGE HOME WITH [facility]. MEDICATION WARNINGS GIVEN. SHARED DECISION MAKING: DISCUSSED WITH PATIENT THAT THEIR WORKUP WAS NORMAL. PATIENT INSTRUCTED TO FOLLOW UP WITH PRIMARY CARE PROVIDER IN 1-2 DAYS FOR RE- EVALUATION OF SYMPTOMS. PATIENT VERBALIZES UNDERSTANDING TO RETURN TO ED FOR NEW OR WORSENING SYMPTOMS OR IF FOLLOW UP WITH PCP CANNOT BE OBTAINED. PATIENT FEELS COMFORTABLE GOING HOME AT THIS TIME. ALL QUESTIONS ADDRESSED AT TIME OF DISCHARGE. Time of 1ST Reevaluation: 14:54 Reevaluation 1ST: Improved Patient Education/Counseling: Diagnosis, Treatment Family Education/Counseling: No Family Present Departure 1 Departure Time of Disposition: 14:54 Impression: Primary Impression: Fracture of neck of right humerus Qualified Codes: S42.211A - Unspecified displaced fracture of surgical neck of right humerus, initial encounter for closed fracture Disposition: 01 HOME / SELF CARE / HOMELESS Condition: Stable Additional Instructions: FOLLOW-UP WITH PCP IN 1 TO 2 DAYS FOR ORTHO REFERRAL. TAKE MEDICATIONS PRESCRIBED. RETURN TO ED FOR ANY NEW OR WORSENING SYMPTOMS. e-Prescriptions Hydrocodone-Acetaminophen (Hydrocodone Bitartrate/AC 10-325 mg) 1 Tab Tab 1 TAB PO TID, #15 TAB Prov: HIRAL COHEN 05/30/25 Discharged With: Self Critical Care Note Critical Care Time?: No Stability Stability form required: No Heart Score Heart Score: Heart Score Response (Comments) Value History N/A 0 EKG N/A 0 Age N/A 0 Risk Factors N/A 0 Troponin N/A 0 Total 0 I personally scribed for HIRAL COHEN ([email or web address]) on 05/30/25 at 14:12. Electronically submitted by Fish Narayanan ([email or web address]). I personally scribed for HIRAL COHEN ([email or web address]) on 05/30/25 at 14:50. Electronically submitted by Fish Narayanan ([email or web address]). HIRAL COHEN May 30, 2025 14:12
--- NOTE | 2025-05-30 14:27 | DVH ---
CLINICAL INDICATION: Pain; FALL TECHNIQUE: 3 radiographic views of the right shoulder were obtained. Comparison: XY R SHOULDER 2+ VIEW XRAY on DOS: 04/29/23, XY R ELBOW 3 VIEW XRAY on DOS: 04/29/23 FINDINGS/IMPRESSION: Mildly displaced fracture of the right humeral neck.
[2025-05-30] MEDS ORDERED: HYDR-4798 PO (14:48)
[2025-05-30 14:56] VITALS: BP 108/52; PULSE 89; RESP 18; TEMP 97.2; O2SAT 99
== END 2025-05-30 14:57 | disposition home or self-care (01) ==
LOC: ER 13:06
DX: S42.211A Unspecified displaced fracture of surgical neck of right humerus, initial encounter for closed fracture (principal); E11.9 Type 2 diabetes mellitus without complications; F41.9 Anxiety disorder, unspecified; I10 Essential (primary) hypertension; J44.89 Other specified chronic obstructive pulmonary disease; Z88.0 Allergy status to penicillin; Z90.710 Acquired absence of both cervix and uterus; Z86.73 Personal history of transient ischemic attack (TIA), and cerebral infarction without residual deficits; Z79.899 Other long term (current) drug therapy; W19.XXXA Unspecified fall, initial encounter; Y93.89 Activity, other specified; Y92.89 Other specified places as the place of occurrence of the external cause; Y99.8 Other external cause status
CPT/HCPCS: 29105; 73030

== ENCOUNTER 2025-06-01 11:17 | Emergency (ER) | payer MEDICAID ==
[~2025-06-01] VITALS: Ht 170.2 cm; Wt 78.2 kg
[~2025-06-01 11:17] MED LIST changes: +HYDR-4798 PO
--- NOTE | 2025-06-01 11:36 | ED.PDOC ---
History of Present Illness HPI Comments A 59 YEAR OLD FEMALE PRESENTS TO THE ED WITH COMPLAINT OF REQUEST FOR SPLINT CARE/REPLACEMENT. PATIENT STATES SHE HAS A RIGHT HUMERAL NECK FRACTURE AFTER A FALL INJURY RECENTLY AND HAD A SPLINT PLACED ON HER RIGHT UPPER ARM HERE IN THIS ED 2 DAYS AGO. PATIENT REPORTS SHE FEELS LIKE HER SPLINT IS TO TIGHT AND HER ARM SLING IS TOO SMALL, WHICH IS CAUSING HER TO HAVE MORE PAIN. PATIENT IS REQUESTING THAT HER SPLINT AND ARM SLING BE REPLACED. PATIENT DENIES FEVER, CHILLS, SHORTNESS OF BREATH, CHEST PAIN, ABDOMINAL PAIN, NAUSEA, VOMITING, HEADACHE, OR OTHER COMPLAINTS. NO OTHER SYMPTOMS OR MODIFYING FACTORS AT THIS TIME. PATIENT IS ALERT, ORIENTED X 4, AND HAS STEADY GAIT. Chief Complaint: Upper Extremity Time Seen by MD: 11:25 Primary Care Provider: BETSY Reviewed Notes: Nurses Notes, Medications, Allergies Allergies: Coded Allergies: Valproic Acid (Verified Allergy, Mild, 10/23/19) Haloperidol (Verified Allergy, Unknown, 10/23/19) Penicillins (Verified Allergy, Unknown, 10/23/19) Home Meds Active Scripts Hydrocodone-Acetaminophen (Hydrocodone Bitartrate/AC 10-325 mg) 1 Tab Tab, 1 TAB PO TID, #15 TAB Prov:HIRAL COHEN 05/30/25 Ondansetron Odt 4MG Tab (ZOFRAN PO) 4 Mg Tb, 4 MG PO QIDPRN PRN, #30 TAB ODT TAB-DISSOLVE IN MOUTH, THEN SWALLOW Prov:NGOC LEPE MD 04/21/25 Nitrofurantoin Monohydrate Mac (Macrobid) 100 Mg Cap, 100 MG PO BID, #14 CAP Prov:NGOC LEPE MD 04/21/25 Tobramycin Sulfate (Tobrex) [address], 2 DROP OP QID, #5 ML Prov:HIRAL COHEN 03/09/25 Lorazepam (Lorazepam) 1 Mg Tab, 1 TAB PO BID for 10 Days, #20 TAB Prov:CAMILO MAY MD 01/24/25 Cefdinir (Cefdinir) 300 Mg Cap, 1 CAP PO BID for 7 Days, #14 CAP Prov:CAMILO MAY MD 01/24/25 Ibuprofen Micronized (Ibuprofen) 800 Mg Tab, 800 MG PO TID for 14 Days, #42 TAB 0 Refills Prov:RAFIA ESCUDERO NP 07/03/24 Clindamycin Hcl (Clindamycin Hcl) 300 Mg Cap, 300 MG PO TID for 7 Days, #21 CAP Prov:HIGINIO HANCOCK DO 05/02/24 Methocarbamol (Methocarbamol) 750 Mg Tab, 750 MG PO BID, #20 TAB Prov:HIRAL COHEN 05/12/23 Hydrocodone-Acetaminophen (Hydrocodone Bitartrate/AC 5-325 mg) 1 Tab Tab, 1 TAB PO BID, #14 TAB Prov:HIRAL COHEN 04/29/23 Albuterol Sulfate (Ventolin) 2.5 Mg/0.5 Ml Nb, 1 VIAL NEB Q4HR, #60 VIAL 1 Refill Prov:HIRAL COHEN 03/19/23 Promethazine-Dm (Promethazine Dm 6.25-15 mg/5Ml) 1 Lucy Lucy, 5 ML PO TID, #160 ML Prov:HIRAL COHEN 03/19/23 Levofloxacin (Levaquin 750 mg) 750 Mg Tab, 1 TAB PO DAILY for 7 Days, #7 TAB 0 Refills Prov:GM SCALES [facility] 03/17/23 Azithromycin (Zithromax Z-Jatin) 250 Mg Tab, 250 MG PO DAILY for 5 Days, #6 TAB 0 Refills Z-Jatin as directed Prov:GM SCALES [facility] 03/17/23 Ibuprofen Micronized (MOTRIN TABLET) 600 Mg Tb, 600 MG PO TID PRN for 5 Days, #15 TAB *Black box warning-NSAIDS can increase risk of [place] & hypertension, GI irritation, ulceration, bleed, perferation. Do not use post cardiac surgery. Use short duration/lowest effective dose. Prov:ELANA BURGER MD 09/21/22 Acetaminophen (Tylenol 8 Hour Arthritis) 650 Mg Tab, 650 MG PO TID, #30 TAB Prov:HIRAL COHEN 03/04/22 Gabapentin (Gabapentin) 300 Mg Cap, 900 MG PO TID, #180 CAP Prov:TRENTON PETERS MD 05/14/21 Reported Medications Ferrous Sulfate (Ferrous Sulfate) 325 Mg Tab, 325 MG PO QDPC for 30 Days, MG 09/15/19 Ergocalciferol (VITAMIN D2) 400 Unit Tab, 400 UNIT PO, TAB 09/15/19 Ertugliflozin l-Pyroglutamic A (Steglatro) 5 Mg Tab, 5 MG PO DAILY, TAB 09/15/19 Lamotrigine (Lamictal) 100 Mg Tab, 1 TAB PO BID, #60 TAB 1 Refill 09/15/19 Metformin Hydrochloride (Metformin Hcl) 500 Mg Tab 06/22/19 Hydrocodone-Acetaminophen (Hydrocodone Bitartrate/AC 10-325 mg) 1 Tab Tab 06/22/19 Lamotrigine (Lamotrigine) 25 Mg Tab, 50 MG PO BID, TAB 09/12/18 Atorvastatin Calcium (ATORVASTATIN CALCIUM) 80 Mg Tab, 1 TAB PO HS, #30 TAB 5 Refills 09/12/18 Eslicarbazepine Acetate (Aptiom) 800 Mg Tab, 1600 MG PO DAILY, TAB 04/25/18 Mirtazapine (Mirtazapine Oral Disintegrating Tablet) 15 Mg Tab, 2 TAB PO QPM, #30 TAB 3 Refills 04/25/18 Aspirin (Aspirin) 325 Mg Tab, 325 MG PO DAILY for 30 Days, MG 04/25/18 Levothyroxine Sodium (Levothyroxine Sodium) 25 Mcg Tab, 75 MCG PO QAM, MCG 05/06/16 Information Source: Patient Mode of Arrival: Ambulatory Severity: Mild Timing: Days Duration: Since onset, Days Prehospital treatment: None Medication Refill: For: Other (RIGHT UPPER ARM PAIN DUE TO SPLINT TOOT TIGHT. ) Past Medical History PAST MEDICAL HISTORY: Anemia, Anxiety, Asthma, COPD, CVA, DM, High Lipids, HTN, Seizures, Thyroid Surgical History: , Hysterectomy SECURITY ROVER History: No Pertinent SECURITY ROVER History Family History Family History: Reviewed,noncontributory to illness, Family hx of DM Social History Smoker: Non-Smoker Alcohol: Denies ETOH Use Drugs: Denies Drug Use Lives In: Home Constitutional: denies: chills, diaphoresis, fatigue, fever, malaise, sweats, w eakness, others EENTM: denies: blurred vision, double vision, ear bleeding, ear discharge, ear drainage, ear pain, ear ringing, eye pain, eye redness, hearing loss, mouth pain, mouth swelling, nasal discharge, nose bleeding, nose congestion, nose pain, photophobia, tearing, throat pain, throat swelling, voice changes, others Respiratory: denies: cough, hemoptysis, orthopnea, SOB at rest, shortness of breath, SOB with excertion, stridor, wheezing, others Cardiovascular: denies: chest pain, dizzy spells, diaphoresis, Dyspnea on exertion, edema, irregular heart beat, left arm pain, lightheadedness, palpitations, PND, syncope, others Gastrointestinal: denies: abdomen distended, abdominal pain, blood streaked bowels, constipated, diarrhea, dysphagia, difficulty swallowing, hematemesis, melena, nausea, poor appetite, poor fluid intake, rectal bleeding, rectal pain, vomiting, others Genitourinary: denies: abnormal vagina bleeding, burning, dyspareunia, dysuria, flank pain, frequency, hematuria, incontinence, pain, , vagina di scharge, urgency, others Neurological: denies: dizziness, fainting, headache, left sided numbness, left sided weakness, numbness, paresthesia, pre-existing deficit, right sided numbness, right sided weakness, seizure, speech problems, tingling, tremors, weakness, others Musculoskeletal: reports: joint pain, joint swelling, others (RIGHT UPPER ARM PAIN); denies: back pain, gout, muscle pain, muscle stiffness, neck pain Integumetry: denies: bruises, change in color, change in hair/nails, dryness, laceration, lesions, lumps, rash, wounds, others Allergic/Immunocompromised: denies: Difficulty Healing, Frequent Infections, Hives, Itching, others Hematologic/Lymphatic: denies: anemia, blood clots, easy bleeding, easy br uising, swollen glands, others Endocrine: denies: excessive hunger, excessive sweating, excessive thirst, excessive urination, flushing, intolerance to cold, intolerance to heat, unexplained weight gain, unexplained weight loss, others Psychiatric: denies: anxiety, bipolar disorder, depression, hopeless, panic disorder, schizophrenia, sleepless, suicidal, others All Other Systems: Reviewed and Negative Physical Exam General Appearance: No Apparent Distress, Normal HEENT: Normal ENT Inspection, PERRL/EOMI, Pharynx Normal, TMs Normal Neck: Full Range of Motion, Non-Tender, Normal, Normal Inspection Respiratory: Chest Non-Tender, Lungs Clear, No Accessory Muscle Use, No Respiratory Distress, Normal Breath Sounds Cardiovascular: No Edema, No JVD, No Murmur, No Gallop, Normal Peripheral Pulses, Regular Rate/Rhythm Breast Exam: Deferred Gastrointestinal: No Organomegaly, Non Tender, No Pulsatile Mass, Normal Bowel Sounds, Soft Genitalia: Deferred Pelvic: Deferred Rectal: Deferred Extremities: Decreased range of motion, No calf tenderness, Normal capillary refill, No pedal edema, Swelling (BONY TENDERNESS AND SWELLING ON RIGHT ARM, NO DEFORMITY. TIGHTNESS OF RIGHT ARM SPLINT. ), Other (NO REDNESS AND SWELLING ON RIGHT HAND, NEUROVASCULAR INTACT. ) Musculoskeletal : Apperance: Normal Neurologic: Alert, catering assistant II-XII nml as Tested, No Motor Deficits, Normal Affect, Normal Mood, No Sensory Deficits Cerebellar Function: Normal Reflexes: Normal Skin: Dry, Normal Color, Warm Peripheral Pulses: 2+ carotid (R), 2+ carotid (L), 2+ Radial (R), 2+ Radial (L) Lymphatic: No Adenopathy Was a procedure done? Was a procedure done?: No Differential Dx Considerations may include: SPLINT CARE, SPLINT REPLACEMENT, HISTORY OF RIGHT HUMERAL NECK FRACTURE X-Ray, Labs, Meds, VS Vital Signs Date Time Temp Pulse Resp B/P (MAP) Pulse Ox O2 Delivery O2 Flow Rate FiO2 06/01/25 11:46 97.3 83 18 148/79 (102) 95 97.3 06/01/25 11:46 83 18 95 Room Air 06/01/25 11:22 97.3 83 18 148/79 95 97.3 X-Ray, Labs, Meds, VS Comment EXTERNAL MEDICAL RECORDS REVIEWED: [NONE] INDEPENDENT HISTORIANS: [NONE] SOCIAL DETERMINANTS OF HEALTH: [NONE] LABS ORDERED: NONE REVIEWED AND INTERPRETED RESULTS: NONE IMAGING ORDERED: NONE TREATMENTS ORDERED: OLD SPLINT REMOVED FROM RIGHT ARM AND A NEW COAPTATION SPLINT APPLIED TO PATIENT'S RIGHT UPPER ARM. PT FEELS MUCH BETTER. PROCEDURES PERFORMED: NONE CRITICAL CARE TIME: NONE I HAVE DISCUSSED THE PATIENT WITH THE ATTENDING PHYSICIAN DR. BURGER AND HE AGREES WITH THE PATIENT'S PLAN OF CARE AND DISPOSITION. BASED ON HISTORY OF PRESENT ILLNESS, AND PHYSICAL EXAM, PATIENT WILL BE DISCHARGED HOME. SHARED DECISION MAKING: D=PATIENT INSTRUCTED TO FOLLOW UP WITH PRIMARY CARE PROVIDER IN 1-2 DAYS FOR RE-EVALUATION OF SYMPTOMS. PATIENT VERBALIZES UNDERSTANDING TO RETURN TO ED FOR NEW OR WORSENING SYMPTOMS OR IF FOLLOW UP WITH PCP CANNOT BE OBTAINED. PATIENT FEELS COMFORTABLE GOING HOME AT THIS TIME. ALL QUESTIONS ADDRESSED AT TIME OF DISCHARGE. Time of 1ST Reevaluation: 12:00 Reevaluation 1ST: Improved Patient Education/Counseling: Diagnosis, Treatment, Need For Follow Up Family Education/Counseling: Diagnosis, Treatment, Need For Follow Up Medical Screening: No EMC Exist At This Time SEPSIS Sepsis Screen Date sepsis recognized/suspect: Jun 01, 2025 Time Sepsis recognized/suspect: 1124 Recent Procedure: No On Antibiotic Therapy: No Respiratory Rate >20: No Heart Rate >90: No Temp<36 C (96.8 F) or >38.3 C: No SBP <90 or MAP <65 mmHG: No New Acute Mental Status Change: No Is the patient on CPAP, BIPAP,: No Vital Signs Date Time Temp Pulse Resp B/P (MAP) Pulse Ox O2 Delivery O2 Flow Rate FiO2 06/01/25 11:46 97.3 83 18 148/79 (102) 95 97.3 06/01/25 11:46 83 18 95 Room Air 06/01/25 11:22 97.3 83 18 148/79 95 97.3 Departure 1 Departure Time of Disposition: 12:00 Impression: Primary Impression: Encounter for cast care Additional Impression: Fracture of neck of right humerus Qualified Codes: S42.211D - Unspecified displaced fracture of surgical neck of right humerus, subsequent encounter for fracture with routine healing Disposition: 01 HOME / SELF CARE / HOMELESS Condition: Stable Additional Instructions: FOLLOW-UP WITH PCP IN 1 TO 2 DAYS FOR REFERRAL TO PATIENT ACCOUNT REPRESENTATIVE. RETURN TO ED FOR ANY NEW OR WORSENING SYMPTOMS. Discharged With: Self, Relative Critical Care Note Critical Care Time?: No Stability Stability form required: No I personally scribed for HIRAL COHEN ([email or web address]) on 06/01/25 at 11:35. Electronically submitted by Mark Anthony Lundberg ([email or web address]). I personally scribed for HIRAL COHEN ([email or web address]) on 06/01/25 at 11:44. Electronically submitted by Mark Anthony Lundberg ([email or web address]). HIRAL COHEN Jun 01, 2025 11:35
[2025-06-01 11:46] VITALS: BP 148/79; PULSE 83; RESP 18; TEMP 97.3; O2SAT 95
== END 2025-06-01 11:51 | disposition home or self-care (01) ==
LOC: ER 11:17
DX: S42.211D Unspecified displaced fracture of surgical neck of right humerus, subsequent encounter for fracture with routine healing (principal); E11.9 Type 2 diabetes mellitus without complications; F41.9 Anxiety disorder, unspecified; I10 Essential (primary) hypertension; J44.89 Other specified chronic obstructive pulmonary disease; J45.909 Unspecified asthma, uncomplicated; E78.5 Hyperlipidemia, unspecified; Z90.710 Acquired absence of both cervix and uterus; Z86.73 Personal history of transient ischemic attack (TIA), and cerebral infarction without residual deficits; Z79.891 Long term (current) use of opiate analgesic; Z79.82 Long term (current) use of aspirin; Z79.1 Long term (current) use of non-steroidal anti-inflammatories (NSAID); Z79.890 Hormone replacement therapy; Z79.899 Other long term (current) drug therapy; Z88.0 Allergy status to penicillin; X58.XXXD Exposure to other specified factors, subsequent encounter
CPT/HCPCS: 29105

== ENCOUNTER 2025-06-02 16:06 | Emergency (ER) | payer MEDICAID ==
[~2025-06-02] VITALS: Ht 170.2 cm; Wt 81.9 kg
[2025-06-02 16:06] VITALS: BP 120/75; PULSE 69; RESP 20; TEMP 98.4; O2SAT 96
== END 2025-06-02 18:42 | disposition left against medical advice (07) ==
LOC: ER 16:11
DX: M25.511 Pain in right shoulder (principal); Z53.21 Procedure and treatment not carried out due to patient leaving prior to being seen by health care provider